=== PATIENT | male | born 1940 | race Caucasian/White ===

== ENCOUNTER → 2017-04-27 | Outpatient (CLI) | payer MEDICARE ==
[~2017-04-27] MED LIST: ASPI-999 PO; ATOR40TA70 PO; CARV12.53 PO; LISI-556 PO; METF500T4 PO; PANT40TA3 PO
== END ==
LOC: PREOP 13:04
PROVIDERS: ATTEND Internal Medicine
DX: Z01.818 Encounter for other preprocedural examination (principal); D64.9 Anemia, unspecified; K92.2 Gastrointestinal hemorrhage, unspecified

== ENCOUNTER → 2017-04-28 | Day surgery (SDC) | payer MEDICARE ==
--- NOTE | 2017-04-27 18:03 | HISTORY AND PHYSICAL ---
DATE OF SERVICE: HISTORY OF PRESENT ILLNESS: The patient is a 76-year-old white male who presented to my office on 04/26/2017. He was reporting that he was having fatigue at that time but voiced no specific complaints. He was not aware of any abdominal pain, indigestion and had noted no melena or bright red blood per rectum. He did look pallorous and sent off initial CBC that revealed that his hemoglobin was down 2 grams compared to three months ago at 11, MCV was slightly lower at 91 compared to 94.6, and the remainder of his chemistries were unremarkable save for mild blood sugar elevation at 146. This was a nonfasting sample. Further studies obtained were iron studies suggesting iron deficiency anemia with an iron saturation level low at 13.5, an iron level of 35 with a TIBC of 260, ferritin was lower into the normal range at 96 with a B12 level of 506. Absolute and corrected retic counts were in the normal range at 71.9 and 1.78 respectively. He called back this morning stating that he is having nausea and vomiting. It was bilious in color. He was not aware of any bright red blood or coffee ground emesis. He was taking a baby aspirin daily and denied nonsteroidal medication usage. PAST MEDICAL HISTORY: Hypertension, hyperlipidemia and coronary artery disease. MEDICATIONS ON ADMISSION: Include carvedilol 12.5 mg b.i.d., metformin 500 mg b.i.d. for type 2 diabetes mellitus, lisinopril 5 mg daily, atorvastatin 40 mg daily, with a baby aspirin daily. PHYSICAL EXAMINATION: Blood pressure was 120/58 with a heart rate of 80 and regular. GENERAL: Revealed a white male, slightly pallorous. CHEST: Clear. CARDIOVASCULAR: Regular rate and rhythm without murmur, S3 or S4. ABDOMEN: Soft, supple without mass, organomegaly or tenderness. ASSESSMENT: Nausea, vomiting, iron deficiency anemia. Workup will be initiated with an EGD evaluation. Aspirin will be held. He will continue his other medications. He was set up for an EGD the morning of the , and that is tomorrow. Job ID: [id number] DocumentID: [id number] Dictated Date: 04/27/2017 16:35:47 Medical Aide Date: 04/27/2017 18:02:55 Dictated By: DAVID RUIZ MD
[~2017-04-28] VITALS: Ht 170.2 cm; Wt 72.6 kg
[~2017-04-28] MED LIST changes: +D5 LR IV SOLUTION 1,000 ML IV ONE; +D5 LR IV SOLUTION 1,000 ML IV STA; +HURRICAINE EXT TUBE (BENZOCAINE) ONE; +HURRICAINE EXT TUBE (BENZOCAINE) XX PRN; +LIDOCAINE JELLY 2% (XYLOCAINE) 5 ML TUBE MM PRN; +LIDOCAINE JELLY 2% (XYLOCAINE) 5 ML TUBE ONE; +MIDAZOLAM 10 MG/2 ML (VERSED) VIAL IVP PRN; +MIDAZOLAM 2 MG/2 ML (VERSED) VIAL ONE; +NS IV 500 ML 500 ML ONE; +PANTOPRAZOLE 40 MG (PROTONIX) TAB PO SCH; +fentaNYL INJECTION 100 MCG/2 ML AMP ONE
--- OUTSIDE RECORDS SUMMARY | 2017-04-28 08:51 | XMS REPORT ---
Author Author MARYAM TAYLOR Organization [employer] Address Unknown Phone Unavailable Care Team Providers Care Customer Success Intern Name Role Phone MARYAM TAYLOR CP Unavailable Allergies, Adverse Reactions, Alerts Substance Reaction Event Type N.K.D.A. Info Not Available Non Drug Allergy Problems Problem Type Condition Code Onset Dates Condition Status Assessment Hip pain M25.559 Active Medications No Known Medications Procedures Procedure Coding System Code Date Office Visit, Est Pt., Level 2 CPT-4 43120 November 20, 2015 [facility] VISIT ESTABLISHED PATIENT CPT-4 G0467 November 20, 2015 Vital Signs Date/Time: November 20, 2015 Temperature 98 F Weight 162.4 lbs Height 68 in BMI 24.69 Index Blood Pressure Diastolic 66 mmHg Blood Pressure Systolic 112 mmHg Cardiac Monitoring Heart Rate 72 bpm Results No Known Results Summary Purpose [employer] Submission
--- OUTSIDE RECORDS SUMMARY | 2017-04-28 08:51 | XMS REPORT | Continuity of Care Document ---
Author Author [facility] Organization [facility] Address Unknown Phone Unavailable Allergies Medications Problems Procedures Results Encounters ACCT No. Visit Date/Time Discharge Status Pt. Type Provider Facility Loc./Unit Complaint [id number] 09/18/2013 09:13:00 2013 23:59:59 CLS Outpatient
[2017-04-28 09:00] VITALS: BP 124/60
[2017-04-28] MEDS: fentaNYL INJECTION 100 MCG/2 ML AMP IVP PRN ×2 (10:34→10:45)
[2017-04-28 11:15] VITALS: BP 101/52
[2017-04-28 12:00] VITALS: BP 110/60
[2017-04-28 15:36] VITALS: BP 110/60
--- NOTE | 2017-04-28 17:48 | OPERATIVE REPORT ---
DATE OF SERVICE: INDICATION FOR THE PROCEDURE: Nausea, vomiting, iron deficiency anemia. The patient was placed in left lateral decubitus position. The endoscope was inserted in the oral cavity and under direct visualization the esophagus was intubated. The endoscope was passed down the esophagus through the stomach into the second portion of the duodenum. Careful inspection was made as the endoscope was withdrawn. The patient tolerated the procedure well. FINDINGS: The mid and upper esophagus were unremarkable. There is a granular appearance to the distal 6 cm of esophagus without a distinct GE junction, suspicious for Rivera's, although non Rivera's related reflux changes are in the differential. Biopsies were obtained and submitted for histopathology. A moderate size hiatal hernia was present at the Z line, was proximally placed at 35 cm from the incisoral orifice. The cardia of the stomach was unremarkable. There was mild erythema and patchy areas involving the distal fundus and antrum. One very small antral erosion was present. No evidence for gastric ulceration was noted. Biopsy was obtained and submitted for Helicobacter. Present in the duodenal bulb along the posterior wall was a small 2 x 3 mm shallow benign appearing ulcer, no visible vessel formation or bleed or clot formation was noted. The second portion and third portion of the duodenum were unremarkable. ASSESSMENT: 1. One small duodenal ulcer was present without evidence of visable vessel formation and no evidence for bleeding. 2. Gastritis, predominantly antral, suspicious for aspirin or nonsteroidal related was present. Biopsies are pending for Helicobacter evaluation. 3. Moderate hiatal hernia with questionable Rivera's changes in the distal esophagus as noted above. Biopsies were obtained and submitted for histopathology. The patient was initiated on pantoprazole 40 mg daily and advised to abstain from aspirin and nonsteroidal medication. He will follow up with me in 2 weeks. Job ID: [id number] DocumentID: [id number] Dictated Date: 04/28/2017 13:08:44 Core Extruder Date: 04/28/2017 17:47:53 Dictated By: DAVID RUIZ MD [facility]
== END | disposition home or self-care (01) ==
LOC: ENDO 08:43
PROVIDERS: ATTEND Internal Medicine
DX: K22.70 Barrett's esophagus without dysplasia (principal); K26.9 Duodenal ulcer, unspecified as acute or chronic, without hemorrhage or perforation; K29.50 Unspecified chronic gastritis without bleeding; K44.9 Diaphragmatic hernia without obstruction or gangrene; D50.9 Iron deficiency anemia, unspecified; I10 Essential (primary) hypertension; E78.5 Hyperlipidemia, unspecified; I25.10 Atherosclerotic heart disease of native coronary artery without angina pectoris; E11.9 Type 2 diabetes mellitus without complications; Z79.84 Long term (current) use of oral hypoglycemic drugs; Z79.899 Other long term (current) drug therapy

== ENCOUNTER 2017-11-02 06:05 | Outpatient (CLI) | payer MEDICARE ==
[~2017-11-02] VITALS: Ht 170.2 cm; Wt 65.8 kg
[~2017-11-02 06:05] MED LIST changes: -D5 LR IV SOLUTION 1,000 ML IV ONE; -D5 LR IV SOLUTION 1,000 ML IV STA; -HURRICAINE EXT TUBE (BENZOCAINE) ONE; -HURRICAINE EXT TUBE (BENZOCAINE) XX PRN; -LIDOCAINE JELLY 2% (XYLOCAINE) 5 ML TUBE MM PRN; -LIDOCAINE JELLY 2% (XYLOCAINE) 5 ML TUBE ONE; -MIDAZOLAM 10 MG/2 ML (VERSED) VIAL IVP PRN; -MIDAZOLAM 2 MG/2 ML (VERSED) VIAL ONE; -NS IV 500 ML 500 ML ONE; -PANTOPRAZOLE 40 MG (PROTONIX) TAB PO SCH; -fentaNYL INJECTION 100 MCG/2 ML AMP ONE
== END 2017-11-02 16:24 ==
LOC: PREOP 06:05
PROVIDERS: ATTEND Surgery
DX: Z01.818 Encounter for other preprocedural examination (principal); K40.90 Unilateral inguinal hernia, without obstruction or gangrene, not specified as recurrent

== ENCOUNTER 2017-11-06 07:51 | Day surgery (SDC) | payer MEDICARE ==
[~2017-11-06] VITALS: Ht 170.2 cm; Wt 65.8 kg
--- OUTSIDE RECORDS SUMMARY | 2017-11-06 07:55 | XMS REPORT | Continuity of Care Document ---
Author Author [facility] Organization [facility] Address Unknown Phone Unavailable Allergies Active Description Code Type Severity Reaction Onset Reported/Identified Relationship to Patient Clinical Status Yes No Known Drug Allergies [id number] Drug Allergy Unknown N/A 02/14/2011 Medications There is no data. 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 05/02/2017 DAVID SALINAS MD Ot K26.9 DUODENAL ULCER, UNSP ACUTE OR CHRONIC 05/02/2017 DAVID SALINAS MD Ot K29.50 UNSPECIFIED CHRONIC GASTRITIS WITHOUT BL 05/02/2017 DAVID SALINAS MD Ot K44.9 DIAPHRAGMATIC HERNIA WITHOUT OBSTRUCTION 05/02/2017 DAVID SALINAS MD Ot Z79.84 BASIN OPERATOR (CURRENT) USE OF ORAL HYPOGLYC 05/02/2017 DAVID SALINAS MD Ot Z79.899 OTHER BASIN OPERATOR (CURRENT) DRUG THERAPY 05/04/2017 DAVID SALINAS MD, Ot D50.9 IRON DEFICIENCY ANEMIA, UNSPECIFIED 05/04/2017 DAVID SALINAS MD Ot E11.9 TYPE 2 DIABETES MELLITUS WITHOUT COMPLIC 05/04/2017 DAVID SALINAS MD Ot E78.5 HYPERLIPIDEMIA, UNSPECIFIED 05/04/2017 DAVID SALINAS MD Ot I10 ESSENTIAL (PRIMARY) HYPERTENSION 05/04/2017 DAVID SALINAS MD Ot I25.10 ATHSCL HEART DISEASE OF [place] CORONARY 05/04/2017 DAVID SALINAS MD Ot 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 05/04/2017 DAVID SALINAS MD Ot K26.9 DUODENAL ULCER, UNSP ACUTE OR CHRONIC 05/04/2017 DAVID SALINAS MD Ot K29.50 UNSPECIFIED CHRONIC GASTRITIS WITHOUT BL 05/04/2017 DAVID SALINAS MD Ot K44.9 DIAPHRAGMATIC HERNIA WITHOUT OBSTRUCTION 05/04/2017 DAVID SALINAS MD Ot Z79.84 BASIN OPERATOR (CURRENT) USE OF ORAL HYPOGLYC 05/04/2017 DAVID SALINAS MD Ot Z79.899 OTHER FPC (CURRENT) DRUG THERAPY 05/11/2017 DAVID SALINAS MD, Ot D50.9 IRON DEFICIENCY ANEMIA, UNSPECIFIED 05/11/2017 DAVID SALINAS MD Ot E11.9 TYPE 2 DIABETES MELLITUS WITHOUT COMPLIC 05/11/2017 DAVID SALINAS MD Ot E78.5 HYPERLIPIDEMIA, UNSPECIFIED 05/11/2017 DAVID SALINAS MD Ot I10 ESSENTIAL (PRIMARY) HYPERTENSION 05/11/2017 DAVID SALINAS MD Ot I25.10 ATHSCL HEART DISEASE OF [place] CORONARY 05/11/2017 DAVID SALINAS MD Ot 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 05/11/2017 DAVID SALINAS MD, Ot K26.9 DUODENAL ULCER, UNSP ACUTE OR CHRONIC 05/11/2017 DAVID SALINAS MD Ot K29.50 UNSPECIFIED CHRONIC GASTRITIS WITHOUT BL 05/11/2017 DAVID SALINAS MD, Ot K44.9 DIAPHRAGMATIC HERNIA WITHOUT OBSTRUCTION 05/11/2017 DAVID SALINAS MD Ot Z79.84 FPC (CURRENT) USE OF ORAL HYPOGLYC 05/11/2017 DAVID SALINAS MD Ot Z79.899 OTHER BASIN OPERATOR (CURRENT) DRUG THERAPY 06/02/2017 DAVID SALINAS MD Ot D50.9 IRON DEFICIENCY ANEMIA, UNSPECIFIED 06/02/2017 DAVID SALINAS MD Ot E11.9 TYPE 2 DIABETES MELLITUS WITHOUT COMPLIC 06/02/2017 DAVID SALINAS MD Ot E78.5 HYPERLIPIDEMIA, UNSPECIFIED 06/02/2017 DAVID SALINAS MD Ot I10 ESSENTIAL (PRIMARY) HYPERTENSION 06/02/2017 DAVID SALINAS MD Ot I25.10 ATHSCL HEART DISEASE OF [place] CORONARY 06/02/2017 SALINAS MD, DAVID D Ot 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 06/02/2017 DAVID SALINAS MD Ot K26.9 DUODENAL ULCER, UNSP ACUTE OR CHRONIC 06/02/2017 DAVID SALINAS MD Ot K29.50 UNSPECIFIED CHRONIC GASTRITIS WITHOUT BL 06/02/2017 DAVID SALINAS MD Ot K44.9 DIAPHRAGMATIC HERNIA WITHOUT OBSTRUCTION 06/02/2017 DAVID SALINAS MD Ot Z79.84 FPC (CURRENT) USE OF ORAL HYPOGLYC 06/02/2017 DAVID SALINAS MD Ot Z79.899 OTHER FPC (CURRENT) DRUG THERAPY 11/02/2017 DAVID SALINAS MD Ot 414.01 CORONARY ATHEROSCLEROSIS OF [place] CORON 11/02/2017 DAVID SALINAS MD Ot 786.50 CHEST PAIN NOS 11/02/2017 DAVID SALINAS MD Ot D50.9 IRON DEFICIENCY ANEMIA, UNSPECIFIED 11/02/2017 DAVID SALINAS MD Ot E11.9 TYPE 2 DIABETES MELLITUS WITHOUT COMPLIC 11/02/2017 DAVID SALINAS MD Ot E78.5 HYPERLIPIDEMIA, UNSPECIFIED 11/02/2017 DAVID SALINAS MD Ot I10 ESSENTIAL (PRIMARY) HYPERTENSION 11/02/2017 DAVID SALINAS MD Ot I25.10 ATHSCL HEART DISEASE OF [place] CORONARY 11/02/2017 DAVID SALINAS MD Ot 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 11/02/2017 DAVID SALINAS MD Ot K26.9 DUODENAL ULCER, UNSP ACUTE OR CHRONIC 11/02/2017 DAVID SALINAS MD Ot K29.50 UNSPECIFIED CHRONIC GASTRITIS WITHOUT BL 11/02/2017 DAVID SALINAS MD Ot K44.9 DIAPHRAGMATIC HERNIA WITHOUT OBSTRUCTION 11/02/2017 DAVID SALINAS MD Ot Z79.84 BASIN OPERATOR (CURRENT) USE OF ORAL HYPOGLYC 11/02/2017 DAVID SALINAS MD Ot Z79.899 OTHER FPC (CURRENT) DRUG THERAPY 11/02/2017 DAVID SALINAS MD Ot D64.9 ANEMIA, UNSPECIFIED 11/02/2017 DAVID SALINAS MD Ot K92.2 GASTROINTESTINAL HEMORRHAGE, UNSPECIFIED 11/02/2017 DAVID SALINAS MD Ot Z01.818 ENCOUNTER FOR OTHER PREPROCEDURAL EXAMIN Procedures There is no data. Results There is no data. Encounters ACCT No. Visit Date/Time Discharge Status Pt. Type Provider Facility Loc./Unit Complaint [id number] 11/02/2017 06:05:00 11/02/2017 16:24:00 DIS Outpatient SRAVAN BRAVO DO [facility] PREOP LEFT INGUINAL HERNIA [id number] 08/24/2017 10:14:00 08/24/2017 23:59:59 CLS Preadmit DAVID SALINAS MD [facility] RAD MEMORY LOSS,WEIGHT LOSS [id number] 04/28/2017 08:43:00 04/28/2017 23:59:59 CLS Outpatient DAVID SALINAS MD [facility] ENDO ANEMIA; POSSIBLE UPPER GI BLEED [id number] 04/27/2017 13:04:00 04/27/2017 23:59:59 CLS Outpatient DAVID SALINAS MD [facility] PREOP ANEMIA; POSSIBLE UPPER GI BLEED [id number] 09/18/2013 09:13:00 09/18/2013 23:59:59 CLS Outpatient DAVID SALINAS MD [facility] LAB ASCAD WITH CP [id number] 11/06/2017 10:00:00 PEN Preadmit SRAVAN BRAVO DO [facility] LEFT INGUINAL HERNIA [id number] 10/25/2017 08:00:00 10/25/2017 23:59:59 CLS Outpatient David Salinas [facility]
[2017-11-06 08:20] VITALS: BP 136/73
[2017-11-06] MEDS ORDERED: ceFAZolin 2 GM IV Premixed 50 ML IV ONE (08:45)
[2017-11-06] MEDS ORDERED: FAMOTIDINE 20MG/2ML IV (PEPCID) ONE (09:01)
[2017-11-06] MEDS ORDERED: FAMOTIDINE 20MG/2ML IV (PEPCID) IV ONE (09:15)
[2017-11-06] MEDS: LACTATED RINGERS 1,000 ML IV PRN ×2 (09:36→10:44)
[2017-11-06] MEDS ORDERED: ROCURONIUM 10 MG/ML 5 ML SYRINGE IV ONE (09:49)
[2017-11-06] MEDS ORDERED: proPOfol 200 MG/20 ML (DIPRIVAN) VIAL IV ONE (09:49)
[2017-11-06] MEDS ORDERED: SEVOFLURANE (ULTANE) 15 ML INHAL SOLN ONE ×5 (09:49→11:30)
[2017-11-06] MEDS ORDERED: DEXAMETHASONE 10 MG/ML (DECADRON) 1 ML VIAL ONE (09:49)
[2017-11-06] MEDS ORDERED: LIDOCAINE PF 2% 5 ML (XYLOCAINE) VIAL ONE (09:49)
[2017-11-06] MEDS ORDERED: ONDANSETRON 4 MG/2 ML (SDV) Z0FRAN ONE (09:49)
[2017-11-06] MEDS ORDERED: fentaNYL INJECTION 100 MCG/2 ML AMP ONE (09:50)
[2017-11-06] MEDS ORDERED: MIDAZOLAM 2 MG/2 ML (VERSED) VIAL ONE (09:50)
[2017-11-06] MEDS ORDERED: LIDOCAINE/EPI 1%-1:200,000 (XYLOCAINE) 10 ML VIAL ONE (10:12)
--- NOTE | 2017-11-06 10:32 | Progress Note-Pre Operative ---
Pre-Operative Progress Note H&P Reviewed The H&P was reviewed, patient examined and no changes noted. Time Seen by Provider: 10:28 Date H&P Reviewed: Nov 06, 2017 Time H&P Reviewed: 10:31 Pre-Operative Diagnosis: Left inguinal hernia SRAVAN RBAVO DO Nov 06, 2017 10:32
--- NOTE | 2017-11-06 11:12 | Progress Note-Post Operative ---
Post-Operative Progess Note Surgeon (s)/Digital Technician (s) Surgeon SRAVAN BRAVO DO Digital Technician: osvaldo Pre-Operative Diagnosis Left inguinal hernia Post-Operative Diagnosis Direct and Indirect LIH Procedure & Operative Findings Date of Procedure 11/06/17 Procedure Performed/Findings LIH with mesh Anesthesia Type GET Estimated Blood Loss Estimated blood loss (mL): scant Specimens/Packing Specimens Removed hernia sac SRAVAN BRAVO DO Nov 06, 2017 11:12
[2017-11-06] MEDS ORDERED: NEOSTIGMINE 1 MG/ML 5 ML SYRINGE ONE (11:13)
[2017-11-06] MEDS ORDERED: GLYCOPYRROLATE 0.2 MG/ML (ROBINUL) 2 ML VIAL ONE (11:13)
[2017-11-06] MEDS ORDERED: ACHD5005 PO (11:13)
--- NOTE | 2017-11-06 11:16 | Discharge Inst-Surgical ---
Discharge Inst-Surgical Depart Medication/Instructions New, Converted or Re-Newed RX: RX Given to Pt/Family Patient Instructions Follow up Appt: Make appointment for 1 week. Instructions: No lifting greater than 20 pounds. No strenuous activity. May shower in 24 hours, no tub bath or soaking. Use incentive spirometer at home as directed. No Smoking Skin/Wound Care: May remove bandages. You need to leave the Dermabond on over incision it will fall off on its own. Symptoms to Report: Appetite Changes, Extremity Discoloration, Numbness/Tingling, Swelling Increased , Bleeding Excessive, Eyesight Changes, Pain Increased, Urine Color Change, Constipation(Persistent), Fever over 101 degree F, Pain/Pressure in chest, Urinating Difficulty, Cough Up/Vomit Blood, Heart Beat Irreg/Pounding, Pain/ Pressure in jaw, Cramps in feet or legs, Lightheadedness, Pain/Pressure in shoulder, Diarrhea(Persistent), Memory Changes Suddenly, Questions/Concerns, Weight gain consecutive days, Dizziness/Fainting, Nausea/Vomiting, Shortness of Breath, Weight gain over 2 pounds If questions or concerns contact your physician Or seek help at emergency department. Activity Activity as Tolerated: Yes Activity Instructions: Avoid Stress to Incision Driving Instructions: No Driving/Refer to Diet Discharge Diet: No Restrictions Diet After 24 Hours: Clear Liquid if Nauseous If Any Problems/Questions/Issu: Contact Your Physician, Go to Emergency Room Skin/Wound Care Infection Signs and Symptoms: Increased Redness, Foul Odor of Wound, Increased Drainage, Skin Itchy or Has a Rash, Increased Swelling, Temperature Above 101 F Bathing Instructions: Shower Stitches/Leeroy/Dermabond Dis: Dermabond Ice Pack: Ice On and Off Site SRAVAN BRAVO DO Nov 06, 2017 11:16
[2017-11-06] MEDS ORDERED: morphine INJ 10 MG/ML 1ML (SYR OR VIAL) IVP PRN (11:45)
[2017-11-06] MEDS ORDERED: ONDANSETRON 4 MG/2 ML (SDV) Z0FRAN IVP PRN (11:45)
[2017-11-06 12:35] VITALS: BP 118/62
[2017-11-06 13:05] VITALS: BP 113/61
--- NOTE | 2017-11-06 13:26 | Anesthesia-General Post-Op ---
General Patient Condition Mental Status/LOC: Same as Preop Cardiovascular: Satisfactory Nausea/Vomiting: Absent Respiratory: Satisfactory Pain: Controlled Complications: Absent Post Op Complications Complications None Follow Up Care/Instructions Patient Instructions None needed. Anesthesia/Patient Condition Patient Condition Patient is doing well, resting comfortably in SDC, no complaints, stable vital signs, no apparent adverse anesthesia problems. DIANE GALO DO Nov 06, 2017 13:26
[2017-11-06 13:35] VITALS: BP 112/57
[2017-11-06 13:45] VITALS: BP 112/57
--- NOTE | 2017-11-07 01:05 | OPERATIVE REPORT ---
DATE OF SERVICE: 11/06/2017 PREOPERATIVE DIAGNOSIS: Incarcerated left inguinal hernia. POSTOPERATIVE DIAGNOSIS: Left inguinal hernia, reducible. PROCEDURE: Left inguinal hernia, direct and indirect component reducible. PROCEDURE: Left inguinal herniorrhaphy with mesh placement. SURGEON: Dio Patel DO ACOUSTICAL INSTALLER: Med Alexander DO ANESTHESIA: General endotracheal tube. SPECIMEN: Hernia sac. BLOOD LOSS: Scant. FLUIDS: Per anesthesia. POSTOPERATIVE CONDITION: Stable. INDICATION FOR PROCEDURE: The patient is a 77-year-old male who has pain and bulge in left inguinal region. He was diagnosed with incarcerated left inguinal hernia. FINDINGS: The patient had an indirect inguinal hernia, but there was no bowel or omentum stuck in there. He also had a very large direct floor component. PROCEDURE NOTE: After informed consent was obtained, the patient was brought to the operating room, placed on the table in supine position. He was sterilely prepped and draped in normal fashion. Local lidocaine was used to perform an ilioinguinal nerve block as well as pubic tubercle block then infiltrated left inguinal region with local, made incision #15 blade, carried down to skin into the subcutaneous tissue, then deepened down subcutaneous tissue by electrocautery down to the external oblique fascia, then infiltrated external oblique fascia with local, then incised external oblique fascia through the external inguinal ring with a Bovie electrocautery, grasped the 2 sides with hemostats and dissected under it bluntly to create a pocket. I was then able to grasp the cord and cord structures and get under them at the pubic tubercle, placed a [place] drain put in inferolateral direction. Noted a pretty large direct component of floor weakness and then looking superiorly, medially on the cord and cord structures found a hernia sac, carefully able to free this off the cord and cord structures, opened this up. There are no contents in the hernia sac, carefully twisted this down and suture ligated with a 2-0 Vicryl and then ligated with 2-0 Vicryl suture. Cut off the hernia sac and watched the stump retracting the abdomen, then path sac off the table. I then elected to close the direct component using 2-0 Vicryl, two [id number] sutures were used to close this. It closed nicely. I then elected to place a left-sided Parietex mesh, sutured to the pubic tubercle and then encircled the cord with a precut hole and then placed rest of it up under the external oblique fascia, laid in nicely, copiously irrigated with normal saline, suctioned this out and then closed the external oblique fascia with a 3-0 Vicryl running suture, thereby recreating the external inguinal ring. I then closed Francisco's fascia with 3-0 Vicryl interrupted sutures and closed the skin with a 4-0 undyed Monocryl in subcuticular fashion. Area was cleaned and dried. Dermabond placed as well as dressing. The patient then transferred to recovery room in stable condition. Sponge and needle count correct at the end of the case. Job ID: [id number] DocumentID: [id number] Dictated Date: 11/06/2017 15:34:37 Learning And Development Administrator Date: 11/06/2017 22:31:23 Dictated By: DIO PATEL DO
== END 2017-11-06 14:10 | disposition home or self-care (01) ==
LOC: SDC 07:51
PROVIDERS: ATTEND Surgery
DX: K40.30 Unilateral inguinal hernia, with obstruction, without gangrene, not specified as recurrent (principal); I10 Essential (primary) hypertension; I25.10 Atherosclerotic heart disease of native coronary artery without angina pectoris; E78.5 Hyperlipidemia, unspecified; Z95.1 Presence of aortocoronary bypass graft; K21.9 Gastro-esophageal reflux disease without esophagitis; E11.9 Type 2 diabetes mellitus without complications; Z79.84 Long term (current) use of oral hypoglycemic drugs; Z79.899 Other long term (current) drug therapy; Z11.2 Encounter for screening for other bacterial diseases
CPT/HCPCS: 82962; 87081

== ENCOUNTER 2017-11-08 10:40 | Emergency (ER) | payer MEDICARE ==
[~2017-11-08] VITALS: Ht 162.6 cm; Wt 61.2 kg
[~2017-11-08 10:40] MED LIST changes: +ACHD5005 PO
--- NOTE | 2017-11-08 11:05 | ED Neurological Problem ---
General Chief Complaint: Altered Mental Status Stated Complaint: AMS Source: patient Exam Limitations: no limitations History of Present Illness Date Seen by Provider: Nov 08, 2017 Time Seen by Provider: 11:01 Initial Comments To ER with c/o altered mental status. Pt was here today to follow up with Dr Bravo from left inguinal hernia repair done 2 days ago. His appointment is on and he believed that was today, noted to seem confused, referred to ER. Lives at home alone he states. Severity: moderate Allergies and Home Medications Allergies Coded Allergies: No Known Drug Allergies (Unverified , 02/14/11) Home Medications Atorvastatin Calcium 40 Mg Tablet, 40 MG PO HS, (Reported) Carvedilol 12.5 Mg Tablet, 12.5 MG PO BID, (Reported) Hydrocodone Bit/Acetaminophen 1 Tab Tab, 1 TAB PO Q6H PRN Prescribed by: SRAVAN BRAVO on 11/06/17 1113 Levofloxacin 250 Mg Tablet, 250 MG PO DAILY Prescribed by: AMRIT SHARP on 11/08/17 1300 Lisinopril 5 Mg Tablet, 5 MG PO DAILY, (Reported) Metformin HCl 500 Mg Tablet, 500 MG PO BID, (Reported) Patient Home Medication List Home Medication List Reviewed: Yes Review of Systems Constitutional: see HPI, other (unable to obtain accurately due to confusion) Past Jhsmgzr-Srdwnw-Ofxxcz Hx Patient Social History Recent Foreign Travel: No Contact w/Someone Who Travel: No Recent Hopitalizations: No Immunizations Up To Date Date of Influenza Vaccine: Apr 20, 2017 Seasonal Allergies Seasonal Allergies: No Past Medical History Coronary Stent Hypertension Reproductive Disorders: No Physical Exam Vital Signs Vital Signs - First Documented 11/08/17 11:39 Temp 97.3 Pulse 67 Resp 18 B/P (MAP) 165/85 (111) Pulse Ox 95 Capillary Refill : General Appearance: WD/WN, no apparent distress, other (alert, ambulatory on his own without assistive device. Rambling conversation. Does not know the year. Asked what day of the month it is and he states "monday". He does know the month is october. ) HEENT: PERRL/EOMI, normal ENT inspection Neck: non-tender, full range of motion Respiratory: normal breath sounds, no respiratory distress, no accessory muscle use Cardiovascular: regular rate, rhythm, no murmur Gastrointestinal: normal bowel sounds, non tender, soft, other ((our) Extremities: normal range of motion, non-tender Neurologic/Psychiatric: alert, normal mood/affect, oriented x 3 Crainal Nerves: normal hearing, normal speech, PERRL Skin: normal color, warm/dry Progress/Results/Core Measures Lab Results Laboratory Tests Test 11/08/17 11:04 11/08/17 11:20 Range/Units White Blood Count 11.9 H 4.3-11.0 10^3/uL Red Blood Count 4.68 4.35-5.85 10^6/uL Hemoglobin 14.1 13.3-17.7 G/DL Hematocrit 43 40-54 % Mean Corpuscular Volume 92 80-99 FL Mean Corpuscular Hemoglobin 30 25-34 PG Mean Corpuscular Hemoglobin Concent 33 32-36 G/DL Red Cell Distribution Width 13.9 10.0-14.5 % Platelet Count 270 130-400 10^3/uL Mean Platelet Volume 9.5 7.4-10.4 FL Neutrophils (%) (Auto) 83 H 42-75 % Lymphocytes (%) (Auto) 10 L 12-44 % Monocytes (%) (Auto) 7 0-12 % Eosinophils (%) (Auto) 0 0-10 % Basophils (%) (Auto) 0 0-10 % Neutrophils # (Auto) 9.9 H 1.8-7.8 X 10^3 Lymphocytes # (Auto) 1.2 1.0-4.0 X 10^3 Monocytes # (Auto) 0.8 0.0-1.0 X 10^3 Eosinophils # (Auto) 0.0 0.0-0.3 10^3/uL Basophils # (Auto) 0.0 0.0-0.1 10^3/uL Sodium Level 140 135-145 MMOL/L Potassium Level 4.1 3.6-5.0 MMOL/L Chloride Level 103 98-107 MMOL/L Carbon Dioxide Level 24 21-32 MMOL/L Anion Gap 13 5-14 MMOL/L Blood Urea Nitrogen 32 H 7-18 MG/DL Creatinine 1.15 0.60-1.30 MG/DL Estimat Glomerular Filtration Rate > 60 BUN/Creatinine Ratio 28 Glucose Level 118 H 70-105 MG/DL Calcium Level 10.4 H 8.5-10.1 MG/DL Total Bilirubin 0.9 0.1-1.0 MG/DL Aspartate Amino Transf (AST/SGOT) 43 H 5-34 U/L Alanine Aminotransferase (ALT/SGPT) 17 0-55 U/L Alkaline Phosphatase 32 L 40-136 U/L Total Protein 7.9 6.4-8.2 GM/DL Albumin 4.4 3.2-4.5 GM/DL Urine Color YELLOW Urine Clarity VERY CLOUDY H Urine pH 6 5-9 Urine Specific Tamiment 1.015 L 1.016-1.022 Urine Protein 3+ H NEGATIVE Urine Glucose (UA) NEGATIVE NEGATIVE Urine Ketones 2+ H NEGATIVE Urine Nitrite NEGATIVE NEGATIVE Urine Bilirubin NEGATIVE NEGATIVE Urine Urobilinogen NORMAL NORMAL MG/DL Urine Leukocyte Esterase 3+ H NEGATIVE Urine RBC (Auto) 5+ H NEGATIVE Urine RBC >100 H /HPF Urine WBC 50-100 H /HPF Urine Squamous Epithelial Cells 0-2 /HPF Urine Crystals NONE /LPF Urine Bacteria TRACE /HPF Urine Casts NONE /LPF Urine Mucus NEGATIVE /LPF Urine Culture Indicated YES My Orders Orders - AMRIT SHARP APRN Cbc With Automated Diff (11/08/17 10:56) Comprehensive Metabolic Panel (11/08/17 10:56) Ua Culture If Indicated (11/08/17 10:56) Chest Pa/Lat (2 View) (11/08/17 10:56) Saline Lock/Iv-Start (11/08/17 10:56) Ekg Tracing (11/08/17 10:56) Ct Head Wo (11/08/17 11:05) Urine Culture (11/08/17 11:20) Ceftriaxone Injection (Rocephin Injectio (11/08/17 11:45) Medications Given in ED Current Medications Medications Dose Ordered Sig/Doreen Route Start Time Stop Time Status Last Admin Dose Admin Ceftriaxone Sodium 1000 mg/ Sodium Chloride 100 ml @ 200 mls/hr ONCE ONCE IV 11/08/17 11:45 11/08/17 12:14 DC 11/08/17 12:44 200 MLS/HR Vital Signs/I&O 11/08/17 11:39 Temp 97.3 Pulse 67 Resp 18 B/P (MAP) 165/85 (111) Pulse Ox 95 Departure Communication (Admissions) 1117-Daughter is present and states pt seems a bit more confused than normal, however, there have been concerns about some baseline dementia. She confirms that he does live alone but her brother, the patients son, lives close by and check on him daily. She states that he likes to drive around and she doesnt feel that is safe for him anymore. Her brother talked to her yesterday and states that yesterday Felix had "a really good day". The confusion has been coupled with bouts of crying and apparent depression after pts and was noticed by family at that time. 1258-Discussed with Dr Salinas, would like pt discharged on levaquin 250mg dialy x3 days, will call patient with appointment time in the office tomorrow for follow up. 1317-I did discuss with patient at request of his son and daughter that he should not be driving on account of his dementia, a reasonable suggestion. Pt does admit "sometimes I dont remember thigs real well" . However, the recommendation that he no longer drive was not well received by him. He will follow up with Dr Salinas tomorrow for further recommendations and his son will accompany him to this visit. Impression Primary Impression: Urinary tract infection Additional Impression: Dementia Disposition: 01 HOME, SELF-CARE Condition: Stable Departure-Patient Inst. Decision time for Depature: 11:44 Referrals: JANELL BUENO DO (PCP) Primary Care Physician DAVID SALINAS MD Patient Instructions: Urinary Tract Infection, Adult (DC) Add. Discharge Instructions: 1. Antibiotics as directed 2. Dr Salinas will call you for an appointment time in the office tomorrow. IF possible, family should accompany you to this visit. All discharge instructions reviewed with patient and/or family. Voiced understanding. Scripts Levofloxacin (Levaquin) 250 Mg Tablet 250 MG PO DAILY, #3 TAB Prov: AMRIT SHARP APRN 11/08/17 Copy Copies To 1: DAVID SALINAS MD, PETER J APRN Nov 08, 2017 11:04
[2017-11-08 11:21] LABS: BASOPHILS % (AUTO) 0 % (0-10); EOSINOPHILS % (AUTO) 0 % (0-10); HEMATOCRIT 43 % (40-54); HEMOGLOBIN 14.1 G/DL (13.3-17.7); LYMPHOCYTES # (AUTO) 1.2 X 10^3 (1.0-4.0); LYMPHOCYTES % (AUTO) 10 % (12-44); MEAN CORPUSCULAR HEMOGLOBIN 30 PG (25-34); MEAN CORPUSCULAR HGB CONC 33 G/DL (32-36); MEAN CORPUSCULAR VOLUME 92 FL (80-99); MEAN PLATELET VOLUME 9.5 FL (7.4-10.4); MONOCYTES # (AUTO) 0.8 X 10^3 (0.0-1.0); MONOCYTES % (AUTO) 7 % (0-12); NEUTROPHILS # (AUTO) 9.9 X 10^3 (1.8-7.8); NEUTROPHILS % (AUTO) 83 % (42-75); PLATELET COUNT 270 10^3/uL (130-400); RED BLOOD COUNT 4.68 10^6/uL (4.35-5.85); RED CELL DISTRIBUTION WIDTH 13.9 % (10.0-14.5); WHITE BLOOD COUNT 11.9 10^3/uL (4.3-11.0)
[2017-11-08 11:28] LABS: BILIRUBIN,URINE NEGATIVE (NEGATIVE); CLARITY,URINE VERY CLOUDY; COLOR,URINE YELLOW; GLUCOSE, URINE (UA) NEGATIVE (NEGATIVE); KETONES,URINE 2+ (NEGATIVE); LEUKOCYTE ESTERASE ,URINE 3+ (NEGATIVE); NITRITE,URINE NEGATIVE (NEGATIVE); PH,URINE 6 (5-9); PROTEIN,URINE 3+ (NEGATIVE); UROBILINOGEN,URINE NORMAL (NORMAL)
[2017-11-08 11:36] LABS: ALANINE AMINOTRANSFERASE 17 U/L (0-55); ALBUMIN 4.4 GM/DL (3.2-4.5); ALKALINE PHOSPHATASE 32 U/L (40-136); BILIRUBIN,TOTAL 0.9 MG/DL (0.1-1.0); BUN/CREATININE RATIO 28; CALCIUM 10.4 MG/DL (8.5-10.1); CARBON DIOXIDE 24 MMOL/L (21-32); CHLORIDE 103 MMOL/L (98-107); CREATININE SERUM 1.15 MG/DL (0.60-1.30); GFR ESTIMATED > 60; GLUCOSE 118 MG/DL (70-105); POTASSIUM 4.1 MMOL/L (3.6-5.0); SODIUM 140 MMOL/L (135-145); TOTAL PROTEIN 7.9 GM/DL (6.4-8.2)
[2017-11-08 11:38] LABS: RBC,URINE >100 /HPF; WBC,URINE 50-100 /HPF
[2017-11-08 11:39] LABS: BACTERIA,URINE TRACE /HPF; SQUAMOUS EPITHELIAL CELL,UR 0-2 /HPF
[2017-11-08] MEDS ORDERED: cefTRIAXone INJECTION 1,000 MG in NS (IVPB) 100 ML IV ONE (11:45)
--- NOTE | 2017-11-08 12:08 | Diagnostic Imaging Report ---
PROCEDURE: CT head without contrast. TECHNIQUE: Multiple contiguous axial images were obtained through the brain without the use of intravenous contrast. INDICATION: Altered mental status. No prior studies are available for comparison. FINDINGS: Ventricles and sulci are consistent with the patient's age. Moderate periventricular hypodensity is noted consistent with senescent change. Benign calcification left occipital lobe is identified. No sulcal effacement, midline shift or hemorrhage is detected. Cisterns are patent. Visualized paranasal sinuses are clear. IMPRESSION: No acute intracranial process is detected. Dictated by: Dictated on workstation # [id number]
--- NOTE | 2017-11-08 12:19 | Diagnostic Imaging Report ---
INDICATION: Altered mental status. Time of exam 12:27 PM No prior chest radiographs are available for comparison. Changes of median sternotomy and CABG are noted. Lungs are clear. The pulmonary vascularity is normal. No infiltrate, effusion or pneumothorax is identified. IMPRESSION: No acute cardiopulmonary process is identified. Dictated by: Dictated on workstation # [id number]
[2017-11-08] MEDS ORDERED: LEVO250T11 PO (13:00)
[2017-11-08] MEDS ORDERED: PHENAZOPYRIDINE 100 MG (PYRIDIUM) TABLET ONE (13:19)
[2017-11-08 13:20] VITALS: BP 145/68
--- OUTSIDE RECORDS SUMMARY | 2017-11-09 10:29 | XMS REPORT | Continuity of Care Document ---
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 05/02/2017 DAVID SALINAS MD Ot K26.9 DUODENAL ULCER, UNSP ACUTE OR CHRONIC 05/02/2017 DAVID SALINAS MD Ot K29.50 UNSPECIFIED CHRONIC GASTRITIS WITHOUT BL 05/02/2017 DAVID SALINAS MD Ot K44.9 DIAPHRAGMATIC HERNIA WITHOUT OBSTRUCTION 05/02/2017 DAVID SALINAS MD Ot Z79.84 APPOINTMENT CLERK (CURRENT) USE OF ORAL HYPOGLYC 05/02/2017 DAVID SALINAS MD Ot Z79.899 OTHER APPOINTMENT CLERK (CURRENT) DRUG THERAPY 05/04/2017 DAVID SALINAS MD, Ot D50.9 IRON DEFICIENCY ANEMIA, UNSPECIFIED 05/04/2017 DAVID SALINAS MD Ot E11.9 TYPE 2 DIABETES MELLITUS WITHOUT COMPLIC 05/04/2017 DAVID SALINAS MD Ot E78.5 HYPERLIPIDEMIA, UNSPECIFIED 05/04/2017 DAVID SALINAS MD Ot I10 ESSENTIAL (PRIMARY) HYPERTENSION 05/04/2017 DAVID SALINAS MD Ot I25.10 ATHSCL HEART DISEASE OF [place] CORONARY 05/04/2017 DAVID SALINAS MD Ot 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 05/04/2017 DAVID SALINAS MD Ot K26.9 DUODENAL ULCER, UNSP ACUTE OR CHRONIC 05/04/2017 DAVID SALINAS MD Ot K29.50 UNSPECIFIED CHRONIC GASTRITIS WITHOUT BL 05/04/2017 DAVID SALINAS MD Ot K44.9 DIAPHRAGMATIC HERNIA WITHOUT OBSTRUCTION 05/04/2017 DAVID SALINAS MD Ot Z79.84 APPOINTMENT CLERK (CURRENT) USE OF ORAL HYPOGLYC 05/04/2017 DAVID SALINAS MD Ot Z79.899 OTHER MCC (CURRENT) DRUG THERAPY 05/11/2017 DAVID SALINAS MD, Ot D50.9 IRON DEFICIENCY ANEMIA, UNSPECIFIED 05/11/2017 DAVID SALINAS MD Ot E11.9 TYPE 2 DIABETES MELLITUS WITHOUT COMPLIC 05/11/2017 DAVID SALINAS MD Ot E78.5 HYPERLIPIDEMIA, UNSPECIFIED 05/11/2017 DAVID SALINAS MD Ot I10 ESSENTIAL (PRIMARY) HYPERTENSION 05/11/2017 DAVID SALINAS MD Ot I25.10 ATHSCL HEART DISEASE OF [place] CORONARY 05/11/2017 DAVID SALINAS MD Ot 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 05/11/2017 DAVID SALINAS MD, Ot K26.9 DUODENAL ULCER, UNSP ACUTE OR CHRONIC 05/11/2017 DAVID SALINAS MD Ot K29.50 UNSPECIFIED CHRONIC GASTRITIS WITHOUT BL 05/11/2017 DAVID SALINAS MD, Ot K44.9 DIAPHRAGMATIC HERNIA WITHOUT OBSTRUCTION 05/11/2017 DAVID SALINAS MD Ot Z79.84 MCC (CURRENT) USE OF ORAL HYPOGLYC 05/11/2017 DAVID SALINAS MD Ot Z79.899 OTHER APPOINTMENT CLERK (CURRENT) DRUG THERAPY 06/02/2017 DAVID SALINAS MD Ot D50.9 IRON DEFICIENCY ANEMIA, UNSPECIFIED 06/02/2017 DAVID SALINAS MD Ot E11.9 TYPE 2 DIABETES MELLITUS WITHOUT COMPLIC 06/02/2017 DAVID SALINAS MD Ot E78.5 HYPERLIPIDEMIA, UNSPECIFIED 06/02/2017 DAVID SALINAS MD Ot I10 ESSENTIAL (PRIMARY) HYPERTENSION 06/02/2017 DAVID SALINAS MD Ot I25.10 ATHSCL HEART DISEASE OF [place] CORONARY 06/02/2017 SALINAS MD, DAVID D Ot 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 06/02/2017 DAVID SALINAS MD Ot K26.9 DUODENAL ULCER, UNSP ACUTE OR CHRONIC 06/02/2017 DAVID SALINAS MD Ot K29.50 UNSPECIFIED CHRONIC GASTRITIS WITHOUT BL 06/02/2017 DAVID SALINAS MD Ot K44.9 DIAPHRAGMATIC HERNIA WITHOUT OBSTRUCTION 06/02/2017 DAVID SALINAS MD Ot Z79.84 MCC (CURRENT) USE OF ORAL HYPOGLYC 06/02/2017 DAVID SALINAS MD Ot Z79.899 OTHER MCC (CURRENT) DRUG THERAPY 11/02/2017 DAVID SALINAS MD Ot 414.01 CORONARY ATHEROSCLEROSIS OF [place] CORON 11/02/2017 DAVID SALINAS MD Ot 786.50 CHEST PAIN NOS 11/02/2017 DAVID SALINAS MD Ot D50.9 IRON DEFICIENCY ANEMIA, UNSPECIFIED 11/02/2017 DAVID SALINAS MD Ot E11.9 TYPE 2 DIABETES MELLITUS WITHOUT COMPLIC 11/02/2017 DAVID SALINAS MD Ot E78.5 HYPERLIPIDEMIA, UNSPECIFIED 11/02/2017 DAVID SALINAS MD Ot I10 ESSENTIAL (PRIMARY) HYPERTENSION 11/02/2017 DAVID SALINAS MD Ot I25.10 ATHSCL HEART DISEASE OF [place] CORONARY 11/02/2017 DAVID SALINAS MD Ot 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 11/02/2017 DAVID SALINAS MD Ot K26.9 DUODENAL ULCER, UNSP ACUTE OR CHRONIC 11/02/2017 DAVID SALINAS MD Ot K29.50 UNSPECIFIED CHRONIC GASTRITIS WITHOUT BL 11/02/2017 DAVID SALINAS MD Ot K44.9 DIAPHRAGMATIC HERNIA WITHOUT OBSTRUCTION 11/02/2017 DAVID SALINAS MD Ot Z79.84 APPOINTMENT CLERK (CURRENT) USE OF ORAL HYPOGLYC 11/02/2017 DAVID SALINAS MD Ot Z79.899 OTHER MCC (CURRENT) DRUG THERAPY 11/02/2017 DAVID SALINAS MD Ot D64.9 ANEMIA, UNSPECIFIED 11/02/2017 DAVID SALINAS MD Ot K92.2 GASTROINTESTINAL HEMORRHAGE, UNSPECIFIED 11/02/2017 DAVID SALINAS MD Ot Z01.818 ENCOUNTER FOR OTHER PREPROCEDURAL EXAMIN 11/02/2017 SRAVAN BRAVO DO Ot K40.90 UNIL INGUINAL HERNIA, W/O OBST OR GANGR, 11/02/2017 JOEL BRAVO DOIC B Ot Z01.818 ENCOUNTER FOR OTHER PREPROCEDURAL EXAMIN 11/06/2017 SRAVAN BRAVO DO Ot E11.9 TYPE 2 DIABETES MELLITUS WITHOUT COMPLIC 11/06/2017 SRAVAN BRAVO DO B Ot E78.5 HYPERLIPIDEMIA, UNSPECIFIED 11/06/2017 SRAVAN BRAVO DO B Ot I10 ESSENTIAL (PRIMARY) HYPERTENSION 11/06/2017 SRAVAN BRAVO DO Ot I25.10 ATHSCL HEART DISEASE OF [place] CORONARY 11/06/2017 JOEL BRAVO DOIC B Ot K21.9 GASTRO-ESOPHAGEAL REFLUX DISEASE WITHOUT 11/06/2017 JOEL BRAVO DOIC B Ot 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, W OBST, W/O GANGR, 11/06/2017 SRAVAN BRAVO DO B Ot Z11.2 ENCOUNTER FOR SCREENING FOR OTHER BACTER 11/06/2017 SRAVAN BRAVO DO Ot Z79.84 MCC (CURRENT) USE OF ORAL HYPOGLYC 11/06/2017 SRAVAN BRAVO DO Ot Z79.899 OTHER MCC (CURRENT) DRUG THERAPY 11/06/2017 SRAVAN BRAVO DO B Ot Z95.1 PRESENCE OF AORTOCORONARY BYPASS GRAFT 11/06/2017 SRAVAN BRAVO DO Ot K40.90 UNIL INGUINAL HERNIA, W/O OBST OR GANGR, 11/06/2017 SRAVAN BRAVO DO B Ot Z01.818 ENCOUNTER FOR OTHER PREPROCEDURAL EXAMIN 11/07/2017 SRAVAN BRAVO DO Ot E11.9 TYPE 2 DIABETES MELLITUS WITHOUT COMPLIC 11/07/2017 SRAVAN BRAVO DO B Ot E78.5 HYPERLIPIDEMIA, UNSPECIFIED 11/07/2017 JOEL BRAVO DOIC B Ot I10 ESSENTIAL (PRIMARY) HYPERTENSION 11/07/2017 JOEL BRAVO DOIC B Ot I25.10 ATHSCL HEART DISEASE OF [place] CORONARY 11/07/2017 JOEL BRAVO DOIC B Ot K21.9 GASTRO-ESOPHAGEAL REFLUX DISEASE WITHOUT 11/07/2017 JOEL BRAVO DOIC B Ot 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, W OBST, W/O GANGR, 11/07/2017 SRAVAN BRAVO DO B Ot Z11.2 ENCOUNTER FOR SCREENING FOR OTHER BACTER 11/07/2017 DELMAN DO, SRAVAN B Ot Z79.84 MCC (CURRENT) USE OF ORAL HYPOGLYC 11/07/2017 DELWARNER DO, SRAVAN B Ot Z79.899 OTHER MCC (CURRENT) DRUG THERAPY 11/07/2017 ALIDAMAN DO, SRAVNA B Ot Z95.1 PRESENCE OF AORTOCORONARY BYPASS GRAFT 11/08/2017 DAVID SALINAS MD Ot 414.01 CORONARY ATHEROSCLEROSIS OF [place] CORON 11/08/2017 DAVID SALINAS MD Ot 786.50 CHEST PAIN NOS 11/08/2017 DAVID SALINAS MD Ot D50.9 IRON DEFICIENCY ANEMIA, UNSPECIFIED 11/08/2017 DAVID SALINAS MD Ot E11.9 TYPE 2 DIABETES MELLITUS WITHOUT COMPLIC 11/08/2017 DAVID SALINAS MD Ot E78.5 HYPERLIPIDEMIA, UNSPECIFIED 11/08/2017 DAVID SALINAS MD Ot I10 ESSENTIAL (PRIMARY) HYPERTENSION 11/08/2017 DAVID SALINAS MD Ot I25.10 ATHSCL HEART DISEASE OF [place] CORONARY 11/08/2017 DAVID SALINAS MD Ot 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 11/08/2017 DAVID SALINAS MD Ot K26.9 DUODENAL ULCER, UNSP ACUTE OR CHRONIC 11/08/2017 DAVID SALINAS MD Ot K29.50 UNSPECIFIED CHRONIC GASTRITIS WITHOUT BL 11/08/2017 DAVID SALINAS MD Ot K44.9 DIAPHRAGMATIC HERNIA WITHOUT OBSTRUCTION 11/08/2017 DAVID SALINAS MD Ot Z79.84 APPOINTMENT CLERK (CURRENT) USE OF ORAL HYPOGLYC 11/08/2017 DAVID SALINAS MD Ot Z79.899 OTHER MCC (CURRENT) DRUG THERAPY 11/08/2017 DAVID SALINAS MD Ot D64.9 ANEMIA, UNSPECIFIED 11/08/2017 DAVID SALINAS MD Ot K92.2 GASTROINTESTINAL HEMORRHAGE, UNSPECIFIED 11/08/2017 DAVID SALINAS MD Ot Z01.818 ENCOUNTER FOR OTHER PREPROCEDURAL EXAMIN 11/08/2017 DAVID SALINAS MD Ot 414.01 CORONARY ATHEROSCLEROSIS OF [place] CORON 11/08/2017 DAVID SALINAS MD Ot 786.50 CHEST PAIN NOS 11/08/2017 DAVID SALINAS MD Ot D50.9 IRON DEFICIENCY ANEMIA, UNSPECIFIED 11/08/2017 DAVID SALINAS MD Ot E11.9 TYPE 2 DIABETES MELLITUS WITHOUT COMPLIC 11/08/2017 DAVID SALINAS MD Ot E78.5 HYPERLIPIDEMIA, UNSPECIFIED 11/08/2017 DAVID SALINAS MD Ot I10 ESSENTIAL (PRIMARY) HYPERTENSION 11/08/2017 DAVID SALINAS MD Ot I25.10 ATHSCL HEART DISEASE OF [place] CORONARY 11/08/2017 DAVID SALINAS MD Ot 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 11/08/2017 DAVID SALINAS MD Ot K26.9 DUODENAL ULCER, UNSP ACUTE OR CHRONIC 11/08/2017 DAVID SALINAS MD Ot K29.50 UNSPECIFIED CHRONIC GASTRITIS WITHOUT BL 11/08/2017 DAVID SALINAS MD Ot K44.9 DIAPHRAGMATIC HERNIA WITHOUT OBSTRUCTION 11/08/2017 DAVID SALINAS MD Ot Z79.84 MCC (CURRENT) USE OF ORAL HYPOGLYC 11/08/2017 DAVID SALINAS MD Ot Z79.899 OTHER MCC (CURRENT) DRUG THERAPY 11/08/2017 DAVID SALINAS MD Ot D64.9 ANEMIA, UNSPECIFIED 11/08/2017 DAVID SALINAS MD Ot K92.2 GASTROINTESTINAL HEMORRHAGE, UNSPECIFIED 11/08/2017 DAVID SALINAS MD Ot Z01.818 ENCOUNTER FOR OTHER PREPROCEDURAL EXAMIN 11/08/2017 DAVID SALINAS MD Ot 414.01 CORONARY ATHEROSCLEROSIS OF [place] CORON 11/08/2017 DAVID SALINAS MD Ot 786.50 CHEST PAIN NOS 11/08/2017 DAVID SALINAS MD Ot D50.9 IRON DEFICIENCY ANEMIA, UNSPECIFIED 11/08/2017 DAVID SALINAS MD Ot E11.9 TYPE 2 DIABETES MELLITUS WITHOUT COMPLIC 11/08/2017 DAVID SALINAS MD Ot E78.5 HYPERLIPIDEMIA, UNSPECIFIED 11/08/2017 DAVID SALINAS MD Ot I10 ESSENTIAL (PRIMARY) HYPERTENSION 11/08/2017 DAVID SALINAS MD Ot I25.10 ATHSCL HEART DISEASE OF [place] CORONARY 11/08/2017 DAVID SALINAS MD Ot 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 11/08/2017 DAVID SALINAS MD Ot K26.9 DUODENAL ULCER, UNSP ACUTE OR CHRONIC 11/08/2017 DAVID SALINAS MD Ot K29.50 UNSPECIFIED CHRONIC GASTRITIS WITHOUT BL 11/08/2017 DAVID SALINAS MD, Ot K44.9 DIAPHRAGMATIC HERNIA WITHOUT OBSTRUCTION 11/08/2017 DAVID SALINAS MD, Ot Z79.84 APPOINTMENT CLERK (CURRENT) USE OF ORAL HYPOGLYC 11/08/2017 DAVID SALINAS MD, Ot Z79.899 OTHER MCC (CURRENT) DRUG THERAPY 11/08/2017 DAVID SALINAS MD, Ot D64.9 ANEMIA, UNSPECIFIED 11/08/2017 DAVID SALINAS MD, Ot K92.2 GASTROINTESTINAL HEMORRHAGE, UNSPECIFIED 11/08/2017 DAVID SALINAS MD, Ot Z01.818 ENCOUNTER FOR OTHER PREPROCEDURAL EXAMIN Procedures There is no data. Results Test Result Range Capillary blood glucose measurement by glucometer (mass/volume) - 11/06/17 08: 19 Capillary blood glucose measurement by glucometer (mass/volume) 135 mg/dL 70-110 Methicillin resistant Staphylococcus aureus (MRSA) screening culture - 08:19 Methicillin resistant Staphylococcus aureus (MRSA) screening culture NEG NRG Complete blood count (CBC) with automated white blood cell (WBC) differential - 11/08/17 11:04 Blood leukocytes automated count (number/volume) 11.9 10*3/uL 4.3-11.0 Blood erythrocytes automated count (number/volume) 4.68 10*6/uL 4.35-5.85 Venous blood hemoglobin measurement (mass/volume) 14.1 g/dL 13.3-17.7 Blood hematocrit (volume fraction) 43 % 40-54 Automated erythrocyte mean corpuscular volume 92 [foz_us] 80-99 Automated erythrocyte mean corpuscular hemoglobin (mass per erythrocyte) 30 pg 25-34 Automated erythrocyte mean corpuscular hemoglobin concentration measurement ( mass/volume) 33 g/dL 32-36 Automated erythrocyte distribution width ratio 13.9 % 10.0-14.5 Automated blood platelet count (count/volume) 270 10*3/uL 130-400 Automated blood platelet mean volume measurement 9.5 [foz_us] 7.4-10.4 Automated blood neutrophils/100 leukocytes 83 % 42-75 Automated blood lymphocytes/100 leukocytes 10 % 12-44 Blood monocytes/100 leukocytes 7 % 0-12 Automated blood eosinophils/100 leukocytes 0 % 0-10 Automated blood basophils/100 leukocytes 0 % 0-10 Blood neutrophils automated count (number/volume) 9.9 10*3 1.8-7.8 Blood lymphocytes automated count (number/volume) 1.2 10*3 1.0-4.0 Blood monocytes automated count (number/volume) 0.8 10*3 0.0-1.0 Automated eosinophil count 0.0 10*3/uL 0.0-0.3 Automated blood basophil count (count/volume) 0.0 10*3/uL 0.0-0.1 Comprehensive metabolic panel - 11/08/17 11:04 Serum or plasma sodium measurement (moles/volume) 140 mmol/L 135-145 Serum or plasma potassium measurement (moles/volume) 4.1 mmol/L 3.6-5.0 Serum or plasma chloride measurement (moles/volume) 103 mmol/L 98-107 Carbon dioxide 24 mmol/L 21-32 Serum or plasma anion gap determination (moles/volume) 13 mmol/L 5-14 Serum or plasma urea nitrogen measurement (mass/volume) 32 mg/dL 7-18 Serum or plasma creatinine measurement (mass/volume) 1.15 mg/dL 0.60-1.30 Serum or plasma urea nitrogen/creatinine mass ratio 28 NRG Serum or plasma creatinine measurement with calculation of estimated glomerular filtration rate > NRG Serum or plasma glucose measurement (mass/volume) 118 mg/dL 70-105 Serum or plasma calcium measurement (mass/volume) 10.4 mg/dL 8.5-10.1 Serum or plasma total bilirubin measurement (mass/volume) 0.9 mg/dL 0.1-1.0 Serum or plasma alkaline phosphatase measurement (enzymatic activity/volume) 32 U/L 40-136 Serum or plasma aspartate aminotransferase measurement (enzymatic activity/ volume) 43 U/L 5-34 Serum or plasma alanine aminotransferase measurement (enzymatic activity/volume ) 17 U/L 0-55 Serum or plasma protein measurement (mass/volume) 7.9 g/dL 6.4-8.2 Serum or plasma albumin measurement (mass/volume) 4.4 g/dL 3.2-4.5 Complete urinalysis with reflex to culture - 11/08/17 11:20 Urine color determination YELLOW NRG Urine clarity determination VERY CLOUDY NRG Urine pH measurement by test strip 6 5-9 Specific gravity of urine by test strip 1.015 1.016- 1.022 Urine protein assay by test strip, semi-quantitative 3+ NEGATIVE Urine glucose detection by automated test strip NEGATIVE NEGATIVE Erythrocytes detection in urine sediment by light microscopy 5+ NEGATIVE Urine ketones detection by automated test strip 2+ NEGATIVE Urine nitrite detection by test strip NEGATIVE NEGATIVE Urine total bilirubin detection by test strip NEGATIVE NEGATIVE Urine urobilinogen measurement by automated test strip (mass/volume) NORMAL NORMAL Urine leukocyte esterase detection by dipstick 3+ NEGATIVE Automated urine sediment erythrocyte count by microscopy (number/high power field) > [HPF] NRG Automated urine sediment leukocyte count by microscopy (number/high power field ) [HPF] NRG Bacteria detection in urine sediment by light microscopy TRACE NRG Squamous epithelial cells detection in urine sediment by light microscopy 0-2 NRG Crystals detection in urine sediment by light microscopy NONE NRG Casts detection in urine sediment by light microscopy NONE NRG Mucus detection in urine sediment by light microscopy NEGATIVE NRG Complete urinalysis with reflex to culture YES NRG Encounters ACCT No. Visit Date/Time Discharge Status Pt. Type Provider Facility Loc./Unit Complaint [id number] 11/08/2017 10:41:00 11/08/2017 13:19:00 DIS Emergency AMRIT SHARP APRN [facility] ER AMS [id number] 11/06/2017 07:51:00 11/06/2017 14:10:00 DIS Outpatient SRAVAN BRAVO DO [facility] SDC LEFT INGUINAL HERNIA [id number] 11/02/2017 06:05:00 11/02/2017 16:24:00 DIS Outpatient SRAVAN BRAVO DO [facility] PREOP LEFT INGUINAL HERNIA [id number] 08/24/2017 10:14:00 08/24/2017 23:59:59 CLS Preadmit DAVID SALINAS MD [facility] RAD MEMORY LOSS,WEIGHT LOSS [id number] 04/28/2017 08:43:00 04/28/2017 23:59:59 CLS Outpatient DAVID SALINAS MD [facility] ENDO ANEMIA; POSSIBLE UPPER GI BLEED [id number] 04/27/2017 13:04:00 04/27/2017 23:59:59 CLS Outpatient DAVID SALINAS MD [facility] PREOP ANEMIA; POSSIBLE UPPER GI BLEED [id number] 09/18/2013 09:13:00 09/18/2013 23:59:59 CLS Outpatient DAVID SALINAS MD [facility] LAB ASCAD WITH [id number] 10/25/2017 08:00:00 10/25/2017 23:59:59 CLS Outpatient David Salinas [facility]
== END 2017-11-08 13:19 | disposition home or self-care (01) ==
LOC: EDUNIT# 10:40 → ER 10:41
DX: N39.0 Urinary tract infection, site not specified (principal); F03.90 Unspecified dementia, unspecified severity, without behavioral disturbance, psychotic disturbance, mood disturbance, and anxiety; I10 Essential (primary) hypertension; Z87.19 Personal history of other diseases of the digestive system; Z79.84 Long term (current) use of oral hypoglycemic drugs; Z95.5 Presence of coronary angioplasty implant and graft
CPT/HCPCS: 36415; 70450; 71046; 80053; 81000; 85025; 87088; 93005

== ENCOUNTER → 2017-11-16 | Outpatient (CLI) | payer MEDICARE ==
[~2017-11-16] VITALS: Ht 162.6 cm; Wt 61.2 kg
[~2017-11-16] MED LIST changes: +Finasteride PO; +HYDR-3812 PO; +LEVO250T11 PO; +MEMORY SUPPLEMENT PO; +TAMS0.4C98 PO
[2017-11-16 10:40] VITALS: BP 149/69
== END ==
LOC: SDC 10:37
PROVIDERS: ATTEND Internal Medicine
DX: N39.0 Urinary tract infection, site not specified (principal)
CPT/HCPCS: 51798

== ENCOUNTER → 2017-12-11 | Outpatient (CLI) | payer MEDICARE ==
[~2017-12-11] VITALS: Ht 167.6 cm; Wt 54.6 kg
[~2017-12-11] MED LIST changes: +CIPR-225 PO; +FINA5TAB6 PO; +LACT20SO2 PO; +MAG-10 PO; +MENT71OI TP; -METF500T4 PO; +METF500T5 PO; +MIRT15TA PO; +MIRT15TA8 PO; +RISP0.2517 PO; +RISP0.253 PO; +RISP0.5T21 PO; +SIMV40TA PO
== END ==
LOC: PREOP 10:03
PROVIDERS: ATTEND Urology
DX: Z01.818 Encounter for other preprocedural examination (principal); C67.9 Malignant neoplasm of bladder, unspecified; N40.1 Benign prostatic hyperplasia with lower urinary tract symptoms; R33.8 Other retention of urine

== ENCOUNTER 2017-12-12 06:05 | Day surgery (SDC) | payer MEDICARE ==
[~2017-12-12] VITALS: Ht 167.6 cm; Wt 54.6 kg
[~2017-12-12 06:05] MED LIST changes: -CIPR-225 PO; -FINA5TAB6 PO; -LACT20SO2 PO; -MAG-10 PO; -MENT71OI TP; -MIRT15TA PO; -RISP0.2517 PO; -RISP0.5T21 PO; -SIMV40TA PO
--- OUTSIDE RECORDS SUMMARY | 2017-12-12 06:09 | XMS REPORT | Continuity of Care Document ---
Author Author [facility] Organization [facility] Address Unknown Phone Unavailable Allergies Active Description Code Type Severity Reaction Onset Reported/Identified Relationship to Patient Clinical Status Yes NO KNOWN DRUG ALLERGIES UNKNOWN NO KNOWN DRUG ALLERG Yes No Known Drug Allergies [id number] Drug Allergy Unknown N/A 02/14/2011 Medications Medication Packaging Start Date Stop Date Route Dosage Sig ACETAMINOPHEN ORAL TABLET 325mg(Tylenol) MG 11/29/2017 12/28/2017 PRN EVERY 6 Hour POLYETHYLENE GLYCOL POWDER UD PWD (MIRALAX 17GM UNIT DOSE PAKS) gm 11/29/2017 12/29/2017 PRN Q3H ALUM/MAG/SIMETH 30CC LIQ (MYLANTA PLUS) cc 11/29/2017 12/29/2017 PRN Q4H HYDROCODONE/APAP 5MG/325MG TAB 5 MG/325MG (CHARLOTTE-TAB 5/325) TAB 11/29/2017 11/29/2017 PRN ONCE CARVEDILOL TAB 12.5 MG (COREG) MG 11/29/2017 12/28/2017 BID&0800,2000 CEFUROXIME TAB 250 MG (CEFTIN) MG 11/29/2017 12/08/2017 BID&0800,2000 CALMOSEPTINE OINT TUBE (RISAMINE OINT) marie 11/29/2017 12/05/2017 PRN QID RISPERIDONE DISSOLVETAB TAB 0.25 MG (RISPERDAL M-TAB) MG 11/29/2017 12/28/2017 BID&0800,2000 LOPERAMIDE CAP 2 MG (IMMODIUM) MG 11/29/2017 12/29/2017 PRN QID LACTULOSE SYRUP LIQ 20 GM/30CC (CHRONULAC SYRUP) GM 11/29/2017 12/28/2017 BID&0800,2000 MILK OF MAGNESIA LIQ ml 11/29/2017 12/28/2017 PRN BID LEVOFOXACIN TAB 250 MG (LEVAQUIN) MG 11/29/2017 11/29/2017 ONCE&0900 LEVOFOXACIN TAB 250 MG (LEVAQUIN) MG 11/29/2017 12/03/2017 Daily&0900 LISINOPRIL TAB 5 MG (ZESTRIL) MG 12/28/2017 Daily&0900 FINASTERIDE TAB 5 MG (PROSCAR) MG 11/29/2017 12/28/2017 Daily&0900 BISACODYL SUPPOS 10 MG (DULCOLAX SUPPOS) MG 11/29/2017 12/29/2017 PRN Daily RISPERIDONE TAB 0.25 MG (RISPERDAL) MG 11/29/2017 12/29/2017 PRN Q6H TAMSULOSIN CAP 0.4 MG (FLOMAX) MG 11/29/2017 12/28/2017 QPM&1800 SIMVASTATIN TAB 40 MG (ZOCOR) MG 12/28/2017 QPM&2000 TRAZODONE TAB 50 MG (DESYREL) MG 12/28/2017 PRN QHS MIRTAZAPINE TAB 15 MG (REMERON) MG 11/29/2017 12/28/2017 QHS&2100 MELATONIN TAB 3 MG (MELATONIN) MG 11/29/2017 12/29/2017 PRN QHS MUPIROCIN OINT 2 % (BACTROBAN) marie 11/30/2017 12/06/2017 BID&0800,2000 RISPERIDONE TAB 0.5 MG (RISPERDAL) MG 11/30/2017 12/29/2017 QHS&2100 RISPERIDONE TAB 0.25 MG (RISPERDAL) MG 12/01/2017 12/30/2017 Daily&0900 RISPERIDONE DISSOLVETAB TAB 0.25 MG (RISPERDAL M-TAB) MG 12/02/2017 01/01/2018 PRN Q6H RISPERIDONE DISSOLVABLE TAB 0.5 MG (RISPERDAL M-TAB) MG 12/02/2017 01/01/2018 BID&0800,2000 RISPERIDONE DISSOLVABLE TAB 0.5 MG (RISPERDAL M-TAB) MG 12/03/2017 01/02/2018 BID&0600,1800 Problems Date Dx Coded Attending Type Code Diagnosis Diagnosed By 05/02/2017 DAVID SALINAS MD Ot D50.9 IRON DEFICIENCY ANEMIA, UNSPECIFIED 05/02/2017 DAVID SALINAS MD Ot E11.9 TYPE 2 DIABETES MELLITUS WITHOUT COMPLIC 05/02/2017 DAVID SALINAS MD Ot E78.5 HYPERLIPIDEMIA, UNSPECIFIED 05/02/2017 DAVID SALINAS MD Ot I10 ESSENTIAL (PRIMARY) HYPERTENSION 05/02/2017 DAVID SALINAS MD Ot I25.10 ATHSCL HEART DISEASE OF [place] CORONARY 05/02/2017 DAVID SALINAS MD Ot 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 05/02/2017 DAVID SALINAS MD Ot K26.9 DUODENAL ULCER, UNSP ACUTE OR CHRONIC 05/02/2017 DAVID SALINAS MD Ot K29.50 UNSPECIFIED CHRONIC GASTRITIS WITHOUT BL 05/02/2017 DAVID SALINAS MD Ot K44.9 DIAPHRAGMATIC HERNIA WITHOUT OBSTRUCTION 05/02/2017 DAVID SALINAS MD Ot Z79.84 DETENTION (CURRENT) USE OF ORAL HYPOGLYC 05/02/2017 DAVID SALINAS MD Ot Z79.899 OTHER DETENTION (CURRENT) DRUG THERAPY 05/04/2017 DAVID SALINAS MD Ot D50.9 IRON DEFICIENCY ANEMIA, UNSPECIFIED 05/04/2017 DAVID SALINAS MD Ot E11.9 TYPE 2 DIABETES MELLITUS WITHOUT COMPLIC 05/04/2017 DAVID SALINAS MD Ot E78.5 HYPERLIPIDEMIA, UNSPECIFIED 05/04/2017 DAVID SALINAS MD Ot I10 ESSENTIAL (PRIMARY) HYPERTENSION 05/04/2017 DAVID SALINAS MD Ot I25.10 ATHSCL HEART DISEASE OF [place] CORONARY 05/04/2017 DAVID SALINAS MD Ot 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 05/04/2017 DAVID SALINAS MD Ot K26.9 DUODENAL ULCER, UNSP ACUTE OR CHRONIC 05/04/2017 DAVID SALINAS MD Ot K29.50 UNSPECIFIED CHRONIC GASTRITIS WITHOUT BL 05/04/2017 DAVID SALINAS MD Ot K44.9 DIAPHRAGMATIC HERNIA WITHOUT OBSTRUCTION 05/04/2017 DAVID SALINAS MD Ot Z79.84 GUN FITTER (CURRENT) USE OF ORAL HYPOGLYC 05/04/2017 DAVID SALINAS MD Ot Z79.899 OTHER GUN FITTER (CURRENT) DRUG THERAPY 05/11/2017 DAVID SALINAS MD Ot D50.9 IRON DEFICIENCY ANEMIA, UNSPECIFIED 05/11/2017 DAVID SALINAS MD Ot E11.9 TYPE 2 DIABETES MELLITUS WITHOUT COMPLIC 05/11/2017 DAVID SALINAS MD Ot E78.5 HYPERLIPIDEMIA, UNSPECIFIED 05/11/2017 DAVID SALINAS MD Ot I10 ESSENTIAL (PRIMARY) HYPERTENSION 05/11/2017 DAVID SALINAS MD Ot I25.10 ATHSCL HEART DISEASE OF [place] CORONARY 05/11/2017 DAVID SALINAS MD Ot 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 05/11/2017 DAVID SALINAS MD Ot K26.9 DUODENAL ULCER, UNSP ACUTE OR CHRONIC 05/11/2017 DAVID SALINAS MD Ot K29.50 UNSPECIFIED CHRONIC GASTRITIS WITHOUT BL 05/11/2017 DAVID SALINAS MD Ot K44.9 DIAPHRAGMATIC HERNIA WITHOUT OBSTRUCTION 05/11/2017 DAVID SALINAS MD Ot Z79.84 DETENTION (CURRENT) USE OF ORAL HYPOGLYC 05/11/2017 DAVID SALINAS MD Ot Z79.899 OTHER DETENTION (CURRENT) DRUG THERAPY 06/02/2017 DAVID SALINAS MD Ot D50.9 IRON DEFICIENCY ANEMIA, UNSPECIFIED 06/02/2017 DAVID SALINAS MD Ot E11.9 TYPE 2 DIABETES MELLITUS WITHOUT COMPLIC 06/02/2017 DAVID SALINAS MD Ot E78.5 HYPERLIPIDEMIA, UNSPECIFIED 06/02/2017 DAVID SALINAS MD Ot I10 ESSENTIAL (PRIMARY) HYPERTENSION 06/02/2017 DAVID SALINAS MD Ot I25.10 ATHSCL HEART DISEASE OF [place] CORONARY 06/02/2017 DAVID SALINAS MD Ot 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 06/02/2017 DAVID SALINAS MD Ot K26.9 DUODENAL ULCER, UNSP ACUTE OR CHRONIC 06/02/2017 DAVID SALINAS MD Ot K29.50 UNSPECIFIED CHRONIC GASTRITIS WITHOUT BL 06/02/2017 DAVID SALINAS MD Ot K44.9 DIAPHRAGMATIC HERNIA WITHOUT OBSTRUCTION 06/02/2017 DAVID SALINAS MD Ot Z79.84 GUN FITTER (CURRENT) USE OF ORAL HYPOGLYC 06/02/2017 DAVID SALINAS MD Ot Z79.899 OTHER GUN FITTER (CURRENT) DRUG THERAPY 11/02/2017 DAVID SALINAS MD Ot 414.01 CORONARY ATHEROSCLEROSIS OF [place] CORON 11/02/2017 DAVID SALINAS MD Ot 786.50 CHEST PAIN NOS 11/02/2017 SALINAS MD, DAVID D Ot D50.9 IRON DEFICIENCY ANEMIA, UNSPECIFIED 11/02/2017 DAVID SALINAS MD Ot E11.9 TYPE 2 DIABETES MELLITUS WITHOUT COMPLIC 11/02/2017 DAVID SALINAS MD Ot E78.5 HYPERLIPIDEMIA, UNSPECIFIED 11/02/2017 DAVID SALINAS MD Ot I10 ESSENTIAL (PRIMARY) HYPERTENSION 11/02/2017 DAVID SALINAS MD Ot I25.10 ATHSCL HEART DISEASE OF [place] CORONARY 11/02/2017 DAVID SALINAS MD Ot 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 11/02/2017 DAVID SALINAS MD, Ot K26.9 DUODENAL ULCER, UNSP ACUTE OR CHRONIC 11/02/2017 DAVID SALINAS MD Ot K29.50 UNSPECIFIED CHRONIC GASTRITIS WITHOUT BL 11/02/2017 DAVID SALINAS MD Ot K44.9 DIAPHRAGMATIC HERNIA WITHOUT OBSTRUCTION 11/02/2017 DAVID SALINAS MD Ot Z79.84 DETENTION (CURRENT) USE OF ORAL HYPOGLYC 11/02/2017 DAVID SALINAS MD Ot Z79.899 OTHER DETENTION (CURRENT) DRUG THERAPY 11/02/2017 DAVID SALINAS MD Ot D64.9 ANEMIA, UNSPECIFIED 11/02/2017 DAVID SALINAS MD Ot K92.2 GASTROINTESTINAL HEMORRHAGE, UNSPECIFIED 11/02/2017 DAVID SALINAS MD Ot Z01.818 ENCOUNTER FOR OTHER PREPROCEDURAL EXAMIN 11/02/2017 SRAVAN BRAVO DO Ot K40.90 UNIL INGUINAL HERNIA, W/O OBST OR GANGR, 11/02/2017 SRAVAN BRAVO DO Ot Z01.818 ENCOUNTER FOR OTHER PREPROCEDURAL EXAMIN 11/06/2017 SRAVAN BRAVO DO B Ot E11.9 TYPE 2 DIABETES MELLITUS WITHOUT COMPLIC 11/06/2017 SRAVAN BRAVO DO Ot E78.5 HYPERLIPIDEMIA, UNSPECIFIED 11/06/2017 SRAVAN BRAVO DO B Ot I10 ESSENTIAL (PRIMARY) HYPERTENSION 11/06/2017 SRAVAN BRAVO DO Ot I25.10 ATHSCL HEART DISEASE OF [place] CORONARY 11/06/2017 SRAVAN BRAVO DO B Ot K21.9 GASTRO-ESOPHAGEAL REFLUX DISEASE WITHOUT 11/06/2017 JOEL BRAVO DOIC B Ot 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, W OBST, W/O GANGR, 11/06/2017 LAWRENCE NEELY SRAVAN B Ot Z11.2 ENCOUNTER FOR SCREENING FOR OTHER BACTER 11/06/2017 LAWRENCE NEELY SRAVAN B Ot Z79.84 GUN FITTER (CURRENT) USE OF ORAL HYPOGLYC 11/06/2017 LAWRENCE NEELY SRAVAN B Ot Z79.899 OTHER GUN FITTER (CURRENT) DRUG THERAPY 11/06/2017 LAWRENCE NEELY SRAVAN B Ot Z95.1 PRESENCE OF AORTOCORONARY BYPASS GRAFT 11/06/2017 LAWRENCE NEELY SRAVAN B Ot K40.90 UNIL INGUINAL HERNIA, W/O OBST OR GANGR, 11/06/2017 LAWRENCE NEELY SRAVAN B Ot Z01.818 ENCOUNTER FOR OTHER PREPROCEDURAL EXAMIN 11/07/2017 ALIDAWARNER DO SRAVAN B Ot E11.9 TYPE 2 DIABETES MELLITUS WITHOUT COMPLIC 11/07/2017 LAWRENCE DO SRAVAN B Ot E78.5 HYPERLIPIDEMIA, UNSPECIFIED 11/07/2017 ALIDAWARNER NEELY SRAVAN B Ot I10 ESSENTIAL (PRIMARY) HYPERTENSION 11/07/2017 LAWRENCE NEELY SRAVAN B Ot I25.10 ATHSCL HEART DISEASE OF [place] CORONARY 11/07/2017 LAWRENCE NEELY SRAVAN B Ot K21.9 GASTRO-ESOPHAGEAL REFLUX DISEASE WITHOUT 11/07/2017 LAWRENCE NEELY, SRAVAN B Ot 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, W OBST, W/O GANGR, 11/07/2017 LAWRENCE NEELY SRAVAN B Ot Z11.2 ENCOUNTER FOR SCREENING FOR OTHER BACTER 11/07/2017 LAWRENCE NEELY SRAVAN B Ot Z79.84 GUN FITTER (CURRENT) USE OF ORAL HYPOGLYC 11/07/2017 LAWRENCE NEELY SRAVAN B Ot Z79.899 OTHER GUN FITTER (CURRENT) DRUG THERAPY 11/07/2017 LAWRENCE NEELY SRAVAN B Ot Z95.1 PRESENCE OF AORTOCORONARY BYPASS GRAFT 11/08/2017 DAVID SALINAS MD Ot 414.01 CORONARY ATHEROSCLEROSIS OF [place] CORON 11/08/2017 DAVID SALINAS MD Ot 786.50 CHEST PAIN NOS 11/08/2017 DAVID SALINAS MD Ot D50.9 IRON DEFICIENCY ANEMIA, UNSPECIFIED 11/08/2017 DAVID SALINAS MD Ot E11.9 TYPE 2 DIABETES MELLITUS WITHOUT COMPLIC 11/08/2017 DAVID SALINAS MD Ot E78.5 HYPERLIPIDEMIA, UNSPECIFIED 11/08/2017 DAVID SALINAS MD Ot I10 ESSENTIAL (PRIMARY) HYPERTENSION 11/08/2017 DAVID SALINAS MD Ot I25.10 ATHSCL HEART DISEASE OF [place] CORONARY 11/08/2017 DAVID SALINAS MD Ot 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 11/08/2017 DAVID SALINAS MD Ot K26.9 DUODENAL ULCER, UNSP ACUTE OR CHRONIC 11/08/2017 DAVID SALINAS MD Ot K29.50 UNSPECIFIED CHRONIC GASTRITIS WITHOUT BL 11/08/2017 DAVID SALINAS MD Ot K44.9 DIAPHRAGMATIC HERNIA WITHOUT OBSTRUCTION 11/08/2017 DAVID SALINAS MD Ot Z79.84 GUN FITTER (CURRENT) USE OF ORAL HYPOGLYC 11/08/2017 DAVID SALINAS MD Ot Z79.899 OTHER DETENTION (CURRENT) DRUG THERAPY 11/08/2017 DAVID SALINAS MD Ot D64.9 ANEMIA, UNSPECIFIED 11/08/2017 DAVID SALINAS MD Ot K92.2 GASTROINTESTINAL HEMORRHAGE, UNSPECIFIED 11/08/2017 DAVID SALINAS MD Ot Z01.818 ENCOUNTER FOR OTHER PREPROCEDURAL EXAMIN 11/08/2017 AMRIT SHARP APRN Ot F03.90 UNSPECIFIED DEMENTIA WITHOUT BEHAVIORAL 11/08/2017 AMRIT SHARP BREAKER MECHANIC Ot I10 ESSENTIAL (PRIMARY) HYPERTENSION 11/08/2017 AMRIT SHARP APRN Ot N39.0 URINARY TRACT INFECTION, SITE NOT SPECIF 11/08/2017 AMRIT SHARP APRN Ot R41.82 ALTERED MENTAL STATUS, UNSPECIFIED 11/08/2017 AMRIT SHARP APRN Ot Z79.84 GUN FITTER (CURRENT) USE OF ORAL HYPOGLYC 11/08/2017 AMRIT SHARP APRN Ot Z87.19 PERSONAL HISTORY OF OTHER DISEASES OF TH 11/08/2017 AMRIT SHARP APRN Ot Z95.5 PRESENCE OF CORONARY ANGIOPLASTY IMPLANT 11/08/2017 DAVID SALINAS MD Ot 414.01 CORONARY ATHEROSCLEROSIS OF [place] CORON 11/08/2017 DAVID SALINAS MD Ot 786.50 CHEST PAIN NOS 11/08/2017 DAVID SALINAS MD Ot D50.9 IRON DEFICIENCY ANEMIA, UNSPECIFIED 11/08/2017 DAVID SALINAS MD Ot E11.9 TYPE 2 DIABETES MELLITUS WITHOUT COMPLIC 11/08/2017 DAVID SALINAS MD Ot E78.5 HYPERLIPIDEMIA, UNSPECIFIED 11/08/2017 DAVID SALINAS MD Ot I10 ESSENTIAL (PRIMARY) HYPERTENSION 11/08/2017 DAVID SALINAS MD Ot I25.10 ATHSCL HEART DISEASE OF [place] CORONARY 11/08/2017 DAVID SALINAS MD Ot 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 11/08/2017 DAVID SALINAS MD Ot K26.9 DUODENAL ULCER, UNSP ACUTE OR CHRONIC 11/08/2017 DAVID SALINAS MD Ot K29.50 UNSPECIFIED CHRONIC GASTRITIS WITHOUT BL 11/08/2017 DAVID SALINAS MD, Ot K44.9 DIAPHRAGMATIC HERNIA WITHOUT OBSTRUCTION 11/08/2017 DAVID SALINAS MD Ot Z79.84 GUN FITTER (CURRENT) USE OF ORAL HYPOGLYC 11/08/2017 DAVID SALINAS MD Ot Z79.899 OTHER DETENTION (CURRENT) DRUG THERAPY 11/08/2017 DAVID SALINAS MD Ot D64.9 ANEMIA, UNSPECIFIED 11/08/2017 DAVID SALINAS MD Ot K92.2 GASTROINTESTINAL HEMORRHAGE, UNSPECIFIED 11/08/2017 DAVID SALINAS MD Ot Z01.818 ENCOUNTER FOR OTHER PREPROCEDURAL EXAMIN 11/08/2017 DAVID SALINAS MD Ot 414.01 CORONARY ATHEROSCLEROSIS OF [place] CORON 11/08/2017 DAVID SALINAS MD Ot 786.50 CHEST PAIN NOS 11/08/2017 DAVID SALINAS MD Ot D50.9 IRON DEFICIENCY ANEMIA, UNSPECIFIED 11/08/2017 DAVID SALINAS MD Ot E11.9 TYPE 2 DIABETES MELLITUS WITHOUT COMPLIC 11/08/2017 DAVID SALINAS MD Ot E78.5 HYPERLIPIDEMIA, UNSPECIFIED 11/08/2017 DAVID SALINAS MD Ot I10 ESSENTIAL (PRIMARY) HYPERTENSION 11/08/2017 DAVID SALINAS MD Ot I25.10 ATHSCL HEART DISEASE OF [place] CORONARY 11/08/2017 DAVID SALINAS MD Ot 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 11/08/2017 DAVID SALINAS MD Ot K26.9 DUODENAL ULCER, UNSP ACUTE OR CHRONIC 11/08/2017 DAVID SALINAS MD Ot K29.50 UNSPECIFIED CHRONIC GASTRITIS WITHOUT BL 11/08/2017 DAVID SALINAS MD Ot K44.9 DIAPHRAGMATIC HERNIA WITHOUT OBSTRUCTION 11/08/2017 DAVID SALINAS MD Ot Z79.84 GUN FITTER (CURRENT) USE OF ORAL HYPOGLYC 11/08/2017 DAVID SALINAS MD Ot Z79.899 OTHER DETENTION (CURRENT) DRUG THERAPY 11/08/2017 DAVID SALINAS MD Ot D64.9 ANEMIA, UNSPECIFIED 11/08/2017 DAVID SALINAS MD Ot K92.2 GASTROINTESTINAL HEMORRHAGE, UNSPECIFIED 11/08/2017 DAVID SALINAS MD Ot Z01.818 ENCOUNTER FOR OTHER PREPROCEDURAL EXAMIN 11/09/2017 DAVID SALINAS MD Ot 414.01 CORONARY ATHEROSCLEROSIS OF [place] CORON 11/09/2017 DAVID SALINAS MD Ot 786.50 CHEST PAIN NOS 11/09/2017 DAVID SALINAS MD Ot D50.9 IRON DEFICIENCY ANEMIA, UNSPECIFIED 11/09/2017 DAVID SALINAS MD Ot E11.9 TYPE 2 DIABETES MELLITUS WITHOUT COMPLIC 11/09/2017 DAVID SALINAS MD Ot E78.5 HYPERLIPIDEMIA, UNSPECIFIED 11/09/2017 DAVID SALINAS MD Ot I10 ESSENTIAL (PRIMARY) HYPERTENSION 11/09/2017 DAVID SALINAS MD Ot I25.10 ATHSCL HEART DISEASE OF [place] CORONARY 11/09/2017 DAVID SALINAS MD Ot 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 11/09/2017 DAVID SALINAS MD Ot K26.9 DUODENAL ULCER, UNSP ACUTE OR CHRONIC 11/09/2017 DAVID SALINAS MD Ot K29.50 UNSPECIFIED CHRONIC GASTRITIS WITHOUT BL 11/09/2017 DAVID SALINAS MD Ot K44.9 DIAPHRAGMATIC HERNIA WITHOUT OBSTRUCTION 11/09/2017 DAVID SALINAS MD Ot Z79.84 DETENTION (CURRENT) USE OF ORAL HYPOGLYC 11/09/2017 DAVID SALINAS MD Ot Z79.899 OTHER GUN FITTER (CURRENT) DRUG THERAPY 11/09/2017 DAVID SALINAS MD Ot D64.9 ANEMIA, UNSPECIFIED 11/09/2017 DAVID SALINAS MD Ot K92.2 GASTROINTESTINAL HEMORRHAGE, UNSPECIFIED 11/09/2017 DAVID SALINAS MD Ot Z01.818 ENCOUNTER FOR OTHER PREPROCEDURAL EXAMIN 11/10/2017 AMRIT SHARP APRN Ot F03.90 UNSPECIFIED DEMENTIA WITHOUT BEHAVIORAL 11/10/2017 AMRIT SHARP APRN Ot I10 ESSENTIAL (PRIMARY) HYPERTENSION 11/10/2017 AMRIT SHARP APRN Ot N39.0 URINARY TRACT INFECTION, SITE NOT SPECIF 11/10/2017 AMRIT SHARP APRN Ot R41.82 ALTERED MENTAL STATUS, UNSPECIFIED 11/10/2017 AMRIT SHARP APRN Ot Z79.84 DETENTION (CURRENT) USE OF ORAL HYPOGLYC 11/10/2017 AMRIT SHARP APRN Ot Z87.19 PERSONAL HISTORY OF OTHER DISEASES OF TH 11/10/2017 AMRIT SHARP APRN Ot Z95.5 PRESENCE OF CORONARY ANGIOPLASTY IMPLANT 11/13/2017 JOEL BRAVO DOIC B Ot E11.9 TYPE 2 DIABETES MELLITUS WITHOUT COMPLIC 11/13/2017 JOEL BRAVO DOIC B Ot E78.5 HYPERLIPIDEMIA, UNSPECIFIED 11/13/2017 LAWRENCE NEELY SRAVAN B Ot I10 ESSENTIAL (PRIMARY) HYPERTENSION 11/13/2017 LAWRENCE NEELY SRAVAN B Ot I25.10 ATHSCL HEART DISEASE OF [place] CORONARY 11/13/2017 JOEL BRAVO DOIC B Ot K21.9 GASTRO-ESOPHAGEAL REFLUX DISEASE WITHOUT 11/13/2017 JOEL BRAVO DOIC B Ot 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, W OBST, W/O GANGR, 11/13/2017 SRAVAN BRAVO DO B Ot Z11.2 ENCOUNTER FOR SCREENING FOR OTHER BACTER 11/13/2017 LAWRENCE NEELY SRAVAN B Ot Z79.84 GUN FITTER (CURRENT) USE OF ORAL HYPOGLYC 11/13/2017 JOEL BRAVO DOIC B Ot Z79.899 OTHER GUN FITTER (CURRENT) DRUG THERAPY 11/13/2017 JOEL BRAVO DOIC B Ot Z95.1 PRESENCE OF AORTOCORONARY BYPASS GRAFT 11/20/2017 CONOR WILSON MD Ot E11.9 TYPE 2 DIABETES MELLITUS WITHOUT COMPLIC 11/20/2017 CONOR WILSON MD Ot F02.80 DEMENTIA IN OTH DISEASES CLASSD ELSWHR W 11/20/2017 CONOR WILSON MD, Ot G30.9 ALZHEIMER'S DISEASE, UNSPECIFIED 11/20/2017 CONOR WILSON MD Ot I10 ESSENTIAL (PRIMARY) HYPERTENSION 11/20/2017 CONOR WILSON MD Ot I25.810 ATHEROSCLEROSIS OF CABG W/O ANGINA PECTO 11/20/2017 CONOR WILSON MD Ot N30.01 ACUTE CYSTITIS WITH HEMATURIA 11/20/2017 CONOR WILSON MD Ot Z79.84 DETENTION (CURRENT) USE OF ORAL HYPOGLYC 11/20/2017 CONOR WILSON MD Ot Z95.1 PRESENCE OF AORTOCORONARY BYPASS GRAFT 11/20/2017 CONOR WILSON MD Ot Z95.5 PRESENCE OF CORONARY ANGIOPLASTY IMPLANT 11/20/2017 JOSEPH WHARTON, DAVID Foreman Ot N39.0 URINARY TRACT INFECTION, SITE NOT SPECIF 11/20/2017 CONOR WILSON MD Ot E11.9 TYPE 2 DIABETES MELLITUS WITHOUT COMPLIC 11/20/2017 CONOR WILSON MD Ot F02.80 DEMENTIA IN OTH DISEASES CLASSD ELSWHR W 11/20/2017 CONOR WILSON MD Ot G30.9 ALZHEIMER'S DISEASE, UNSPECIFIED 11/20/2017 CONOR WILSON MD Ot I10 ESSENTIAL (PRIMARY) HYPERTENSION 11/20/2017 CONOR WILSON MD Ot I25.810 ATHEROSCLEROSIS OF CABG W/O ANGINA PECTO 11/20/2017 CONOR WILSON MD Ot N30.01 ACUTE CYSTITIS WITH HEMATURIA 11/20/2017 CONOR WILSON MD Ot Z79.84 DETENTION (CURRENT) USE OF ORAL HYPOGLYC 11/20/2017 CONOR WILSON MD Ot Z95.1 PRESENCE OF AORTOCORONARY BYPASS GRAFT 11/20/2017 CONOR WILSON MD Ot Z95.5 PRESENCE OF CORONARY ANGIOPLASTY IMPLANT 11/20/2017 CONOR WILSON MD Ot E11.9 TYPE 2 DIABETES MELLITUS WITHOUT COMPLIC 11/20/2017 CONOR WILSON MD Ot F02.80 DEMENTIA IN OTH DISEASES CLASSD ELSWHR W 11/20/2017 CONOR WILSON MD Ot G30.9 ALZHEIMER'S DISEASE, UNSPECIFIED 11/20/2017 CONOR WILSON MD Ot I10 ESSENTIAL (PRIMARY) HYPERTENSION 11/20/2017 CONOR WILSON MD Ot I25.810 ATHEROSCLEROSIS OF CABG W/O ANGINA PECTO 11/20/2017 CONOR WILSON MD Ot N30.01 ACUTE CYSTITIS WITH HEMATURIA 11/20/2017 CONOR WILSON MD Ot Z79.84 DETENTION (CURRENT) USE OF ORAL HYPOGLYC 11/20/2017 CONOR WILSON MD Ot Z95.1 PRESENCE OF AORTOCORONARY BYPASS GRAFT 11/20/2017 CONOR WILSON MD Ot Z95.5 PRESENCE OF CORONARY ANGIOPLASTY IMPLANT 11/21/2017 CONOR WILSON MD Ot E11.9 TYPE 2 DIABETES MELLITUS WITHOUT COMPLIC 11/21/2017 CONOR WILSON MD Ot F02.80 DEMENTIA IN OTH DISEASES CLASSD ELSWHR W 11/21/2017 CONOR WILSON MD Ot G30.9 ALZHEIMER'S DISEASE, UNSPECIFIED 11/21/2017 CONOR WILSON MD Ot I10 ESSENTIAL (PRIMARY) HYPERTENSION 11/21/2017 CONOR WILSON MD Ot I25.810 ATHEROSCLEROSIS OF CABG W/O ANGINA PECTO 11/21/2017 CONOR WILSON MD Ot N30.01 ACUTE CYSTITIS WITH HEMATURIA 11/21/2017 CONOR WILSON MD Ot Z79.84 GUN FITTER (CURRENT) USE OF ORAL HYPOGLYC 11/21/2017 CONOR WILSON MD Ot Z95.1 PRESENCE OF AORTOCORONARY BYPASS GRAFT 11/21/2017 CONOR WILSON MD Ot Z95.5 PRESENCE OF CORONARY ANGIOPLASTY IMPLANT 11/21/2017 CONOR WILSON MD Ot E11.9 TYPE 2 DIABETES MELLITUS WITHOUT COMPLIC 11/21/2017 CONOR WILSON MD Ot F02.80 DEMENTIA IN OTH DISEASES CLASSD ELSWHR W 11/21/2017 CONOR WILSON MD, Ot G30.9 ALZHEIMER'S DISEASE, UNSPECIFIED 11/21/2017 CONRO WILSON MD Ot I10 ESSENTIAL (PRIMARY) HYPERTENSION 11/21/2017 CONOR WILSON MD Ot I25.810 ATHEROSCLEROSIS OF CABG W/O ANGINA PECTO 11/21/2017 CONOR WILSON MD Ot N30.01 ACUTE CYSTITIS WITH HEMATURIA 11/21/2017 CONOR WILSON MD Ot Z79.84 GUN FITTER (CURRENT) USE OF ORAL HYPOGLYC 11/21/2017 CONOR WILSON MD Ot Z95.1 PRESENCE OF AORTOCORONARY BYPASS GRAFT 11/21/2017 CONOR WILSON MD Ot Z95.5 PRESENCE OF CORONARY ANGIOPLASTY IMPLANT 11/22/2017 CONOR WILSON MD Ot E11.9 TYPE 2 DIABETES MELLITUS WITHOUT COMPLIC 11/22/2017 CONOR WILSON MD Ot F02.80 DEMENTIA IN OTH DISEASES CLASSD ELSWHR W 11/22/2017 CONOR WILSON MD Ot G30.9 ALZHEIMER'S DISEASE, UNSPECIFIED 11/22/2017 CONOR WILSON MD Ot I10 ESSENTIAL (PRIMARY) HYPERTENSION 11/22/2017 CONOR WILSON MD Ot I25.810 ATHEROSCLEROSIS OF CABG W/O ANGINA PECTO 11/22/2017 CONOR WILSON MD Ot N30.01 ACUTE CYSTITIS WITH HEMATURIA 11/22/2017 CONOR WILSON MD Ot Z79.84 GUN FITTER (CURRENT) USE OF ORAL HYPOGLYC 11/22/2017 CONOR WILSON MD Ot Z95.1 PRESENCE OF AORTOCORONARY BYPASS GRAFT 11/22/2017 CONOR WILSON MD Ot Z95.5 PRESENCE OF CORONARY ANGIOPLASTY IMPLANT 11/24/2017 CONOR WILSON MD Ot E11.9 TYPE 2 DIABETES MELLITUS WITHOUT COMPLIC 11/24/2017 CONOR WILSON MD Ot F02.80 DEMENTIA IN OTH DISEASES CLASSD ELSWHR W 11/24/2017 CONOR WILSON MD, Ot G30.9 ALZHEIMER'S DISEASE, UNSPECIFIED 11/24/2017 CONOR WILSON MD Ot I10 ESSENTIAL (PRIMARY) HYPERTENSION 11/24/2017 CONOR WILSON MD Ot I25.810 ATHEROSCLEROSIS OF CABG W/O ANGINA PECTO 11/24/2017 CONOR WILSON MD Ot N30.01 ACUTE CYSTITIS WITH HEMATURIA 11/24/2017 CONOR WILSON MD Ot Z79.84 DETENTION (CURRENT) USE OF ORAL HYPOGLYC 11/24/2017 CONOR WILSON MD Ot Z95.1 PRESENCE OF AORTOCORONARY BYPASS GRAFT 11/24/2017 CONOR WILSON MD Ot Z95.5 PRESENCE OF CORONARY ANGIOPLASTY IMPLANT 11/24/2017 CONOR WILSON MD Ot E11.9 TYPE 2 DIABETES MELLITUS WITHOUT COMPLIC 11/24/2017 CONOR WILSON MD Ot F02.80 DEMENTIA IN OTH DISEASES CLASSD ELSWHR W 11/24/2017 CONOR WILSON MD, Ot G30.9 ALZHEIMER'S DISEASE, UNSPECIFIED 11/24/2017 CONOR WILSON MD Ot I10 ESSENTIAL (PRIMARY) HYPERTENSION 11/24/2017 CONOR WILSON MD Ot I25.810 ATHEROSCLEROSIS OF CABG W/O ANGINA PECTO 11/24/2017 CONOR WILSON MD Ot N30.01 ACUTE CYSTITIS WITH HEMATURIA 11/24/2017 CONOR WILSON MD Ot Z79.84 DETENTION (CURRENT) USE OF ORAL HYPOGLYC 11/24/2017 CONOR WILSON MD Ot Z95.1 PRESENCE OF AORTOCORONARY BYPASS GRAFT 11/24/2017 CONOR WILSON MD Ot Z95.5 PRESENCE OF CORONARY ANGIOPLASTY IMPLANT 11/24/2017 CONOR WILSON MD Ot E11.9 TYPE 2 DIABETES MELLITUS WITHOUT COMPLIC 11/24/2017 CONOR WILSON MD Ot F02.80 DEMENTIA IN OTH DISEASES CLASSD ELSWHR W 11/24/2017 CONOR WILSON MD, Ot G30.9 ALZHEIMER'S DISEASE, UNSPECIFIED 11/24/2017 CONOR WILSON MD Ot I10 ESSENTIAL (PRIMARY) HYPERTENSION 11/24/2017 CONOR WILSON MD Ot I25.810 ATHEROSCLEROSIS OF CABG W/O ANGINA PECTO 11/24/2017 CONOR WILSON MD Ot N30.01 ACUTE CYSTITIS WITH HEMATURIA 11/24/2017 CONOR WILSON MD Ot Z79.84 GUN FITTER (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) USE OF ORAL HYPOGLYC 11/24/2017 CONOR WILSON MD Ot Z95.1 PRESENCE OF AORTOCORONARY BYPASS GRAFT 11/24/2017 CONOR WILSON MD Ot Z95.5 PRESENCE OF CORONARY ANGIOPLASTY IMPLANT 11/24/2017 CONOR WILSON MD Ot E11.9 TYPE 2 DIABETES MELLITUS WITHOUT COMPLIC 11/24/2017 CONOR WILSON MD Ot F02.80 DEMENTIA IN OTH DISEASES CLASSD ELSWHR W 11/24/2017 CONOR WILSON MD Ot G30.9 ALZHEIMER'S DISEASE, UNSPECIFIED 11/24/2017 CONOR WILSON MD Ot I10 ESSENTIAL (PRIMARY) HYPERTENSION 11/24/2017 CONOR WILSON MD Ot I25.810 ATHEROSCLEROSIS OF CABG W/O ANGINA PECTO 11/24/2017 CONOR WILSON MD Ot N30.01 ACUTE CYSTITIS WITH HEMATURIA 11/24/2017 CONOR WILSON MD Ot Z79.84 DETENTION (CURRENT) USE OF ORAL HYPOGLYC 11/24/2017 CONOR WILSON MD Ot Z95.1 PRESENCE OF AORTOCORONARY BYPASS GRAFT 11/24/2017 CONOR WILSON MD Ot Z95.5 PRESENCE OF CORONARY ANGIOPLASTY IMPLANT 11/28/2017 CONOR WILSON MD Ot E11.9 TYPE 2 DIABETES MELLITUS WITHOUT COMPLIC 11/28/2017 CONOR WILSON MD Ot F02.80 DEMENTIA IN OTH DISEASES CLASSD ELSWHR W 11/28/2017 CONOR WILSON MD Ot G30.9 ALZHEIMER'S DISEASE, UNSPECIFIED 11/28/2017 CONOR WILSON MD Ot I10 ESSENTIAL (PRIMARY) HYPERTENSION 11/28/2017 CONOR WILSON MD Ot I25.810 ATHEROSCLEROSIS OF CABG W/O ANGINA PECTO 11/28/2017 CONOR WILSON MD Ot N30.01 ACUTE CYSTITIS WITH HEMATURIA 11/28/2017 CONOR WILSON MD Ot Z79.84 DETENTION (CURRENT) USE OF ORAL HYPOGLYC 11/28/2017 CONOR WILSON MD Ot Z95.1 PRESENCE OF AORTOCORONARY BYPASS GRAFT 11/28/2017 CONOR WILSON MD Ot Z95.5 PRESENCE OF CORONARY ANGIOPLASTY IMPLANT 11/28/2017 CONOR WILSON MD Ot 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 11/28/2017 CONOR WILSON MD Ot E11.9 TYPE 2 DIABETES MELLITUS WITHOUT COMPLIC 11/28/2017 CONOR WILSON MD Ot F02.80 DEMENTIA IN OTH DISEASES CLASSD ELSWHR W 11/28/2017 CONOR WILSON MD Ot F02.81 DEMENTIA IN OTH DISEASES CLASSD ELSWHR W 11/28/2017 CONOR WILSON MD, Ot G30.9 ALZHEIMER'S DISEASE, UNSPECIFIED 11/28/2017 CONOR WILSON MD, Ot I10 ESSENTIAL (PRIMARY) HYPERTENSION 11/28/2017 CONOR WILSON MD, Ot I25.810 ATHEROSCLEROSIS OF CABG W/O ANGINA PECTO 11/28/2017 CONOR WILSON MD, Ot N30.01 ACUTE CYSTITIS WITH HEMATURIA 11/28/2017 CONOR WILSON MD, Ot N40.1 BENIGN PROSTATIC HYPERPLASIA WITH LOWER 11/28/2017 CONOR WILSON MD, Ot R33.8 OTHER RETENTION OF URINE 11/28/2017 CONOR WILSON MD, Ot Z79.84 DETENTION (CURRENT) USE OF ORAL HYPOGLYC 11/28/2017 CONOR WILSON MD, Ot Z95.1 PRESENCE OF AORTOCORONARY BYPASS GRAFT 11/28/2017 CONOR WILSON MD, Ot Z95.5 PRESENCE OF CORONARY ANGIOPLASTY IMPLANT 11/29/2017 Tien Ricci W 307.9 OTHER AND UNSPECIFIED SPECIAL SYMPTOMS OR SYNDROMES, NOT ELSEWHERE CLASSIFIED 11/29/2017 Tien Ricci W R45.1 RESTLESSNESS AND AGITATION Procedures Code Description Performed By Performed On [id number] INSPECTION OF BLADDER, ENDO 11/20/2017 [id number] EXCISION OF BLADDER, ENDO , DIAGN 11/21/2017 Results Test Result Range Capillary blood glucose [...] urinalysis with reflex to culture YES NRG Bacterial urine culture - 11/08/17 11:20 Bacterial urine culture NG NRG Complete urinalysis with reflex to culture - 11/16/17 15:45 Urine color determination RED NRG Urine clarity determination BLOODY NRG Urine pH measurement by test strip 8 5-9 Specific gravity of urine by test strip 1.010 1.016- 1.022 Urine protein assay by test strip, semi-quantitative 4+ NEGATIVE Urine glucose detection by automated test strip NEGATIVE NEGATIVE Erythrocytes detection in urine sediment by light microscopy 5+ NEGATIVE Urine ketones detection by automated test strip 1+ NEGATIVE Urine nitrite detection by test strip NEGATIVE NEGATIVE Urine total bilirubin detection by test strip NEGATIVE NEGATIVE Urine urobilinogen measurement by automated test strip (mass/volume) NORMAL NORMAL Urine leukocyte esterase detection by dipstick 3+ NEGATIVE Automated urine sediment erythrocyte count by microscopy (number/high power field) [HPF] NRG Automated urine sediment leukocyte count by microscopy (number/high power field ) [HPF] NRG Bacteria detection in urine sediment by light microscopy FEW NRG Squamous epithelial cells detection in urine sediment by light microscopy >50 NRG Crystals detection in urine sediment by light microscopy PRESENT NRG Casts detection in urine sediment by light microscopy NONE NRG Mucus detection in urine sediment by light microscopy SMALL NRG Complete urinalysis with reflex to culture YES NRG Calcium oxalate crystals detection in urine sediment by light microscopy FEW NRG Bacterial urine culture - 11/16/17 15:45 Bacterial urine culture NG NRG PT panel in platelet poor plasma by coagulation assay - 11/16/17 16:10 Prothrombin time (PT) in platelet poor plasma by coagulation assay 13.3 s 12.2-14.7 INR in platelet poor plasma or blood by coagulation assay 1.0 0.8-1.4 Activated partial thromboplastin time (aPTT) in platelet poor plasma bycoagulation assay - 11/16/17 16:10 Activated partial thromboplastin time (aPTT) in platelet poor plasma bycoagulation assay 27 s 24-35 Comprehensive metabolic panel - 11/16/17 16:10 Serum or plasma sodium measurement (moles/volume) 141 mmol/L 135-145 Serum or plasma potassium measurement (moles/volume) 4.4 mmol/L 3.6-5.0 Serum or plasma chloride measurement (moles/volume) 104 mmol/L 98-107 Carbon dioxide 28 mmol/L 21-32 Serum or plasma anion gap determination (moles/volume) 9 mmol/L 5-14 Serum or plasma urea nitrogen measurement (mass/volume) 33 mg/dL 7-18 Serum or plasma creatinine measurement (mass/volume) 1.71 mg/dL 0.60-1.30 Serum or plasma urea nitrogen/creatinine mass ratio 19 NRG Serum or plasma creatinine measurement with calculation of estimated glomerular filtration rate 39 NRG Serum or plasma glucose measurement (mass/volume) 131 mg/dL 70-105 Serum or plasma calcium measurement (mass/volume) 10.4 mg/dL 8.5-10.1 Serum or plasma total bilirubin measurement (mass/volume) 0.9 mg/dL 0.1-1.0 Serum or plasma alkaline phosphatase measurement (enzymatic activity/volume) 34 U/L 40-136 Serum or plasma aspartate aminotransferase measurement (enzymatic activity/ volume) 20 U/L 5-34 Serum or plasma alanine aminotransferase measurement (enzymatic activity/volume ) 15 U/L 0-55 Serum or plasma protein measurement (mass/volume) 7.3 g/dL 6.4-8.2 Serum or plasma albumin measurement (mass/volume) 4.2 g/dL 3.2-4.5 Serum or plasma thyrotropin measurement by detection limit <=0.05 miu/l (units/ volume) - 11/16/17 16:10 Serum or plasma thyrotropin measurement by detection limit <=0.05 miu/l (units/ volume) 0.59 u[iU]/mL 0.35-4.94 Bacterial blood culture - 11/16/17 16:10 Bacterial blood culture NG NR Blood lactic acid measurement (moles/volume) - 11/16/17 16:16 Blood lactic acid measurement (moles/volume) 1.16 mmol/L 0.50-2.00 Bacterial blood culture - 11/16/17 16:18 Bacterial blood culture NG NR Complete blood count (CBC) with automated white blood cell (WBC) differential - 11/17/17 05:38 Blood leukocytes automated count (number/volume) 8.5 10*3/uL 4.3-11.0 Blood erythrocytes automated count (number/volume) 4.03 10*6/uL 4.35-5.85 Venous blood hemoglobin measurement (mass/volume) 12.2 g/dL 13.3-17.7 Blood hematocrit (volume fraction) 37 % 40-54 Automated erythrocyte mean corpuscular volume 93 [foz_us] 80-99 Automated erythrocyte mean corpuscular hemoglobin (mass per erythrocyte) 30 pg 25-34 Automated erythrocyte mean corpuscular hemoglobin concentration measurement ( mass/volume) 33 g/dL 32-36 Automated erythrocyte distribution width ratio 13.5 % 10.0-14.5 Automated blood platelet count (count/volume) 222 10*3/uL 130-400 Automated blood platelet mean volume measurement 9.3 [foz_us] 7.4-10.4 Automated blood neutrophils/100 leukocytes 73 % 42-75 Automated blood lymphocytes/100 leukocytes 17 % 12-44 Blood monocytes/100 leukocytes 9 % 0-12 Automated blood eosinophils/100 leukocytes 2 % 0-10 Automated blood basophils/100 leukocytes 0 % 0-10 Blood neutrophils automated count (number/volume) 6.2 10*3 1.8-7.8 Blood lymphocytes automated count (number/volume) 1.4 10*3 1.0-4.0 Blood monocytes automated count (number/volume) 0.7 10*3 0.0-1.0 Automated eosinophil count 0.1 10*3/uL 0.0-0.3 Automated blood basophil count (count/volume) 0.0 10*3/uL 0.0-0.1 Whole blood basic metabolic panel - 11/17/17 05:38 Serum or plasma sodium measurement (moles/volume) 140 mmol/L 135-145 Serum or plasma potassium measurement (moles/volume) 4.3 mmol/L 3.6-5.0 Serum or plasma chloride measurement (moles/volume) 108 mmol/L 98-107 Carbon dioxide 25 mmol/L 21-32 Serum or plasma anion gap determination (moles/volume) 7 mmol/L 5-14 Serum or plasma urea nitrogen measurement (mass/volume) 25 mg/dL 7-18 Serum or plasma creatinine measurement (mass/volume) 1.18 mg/dL 0.60-1.30 Serum or plasma urea nitrogen/creatinine mass ratio 21 NRG Serum or plasma creatinine measurement with calculation of estimated glomerular filtration rate 60 NRG Serum or plasma glucose measurement (mass/volume) 106 mg/dL 70-105 Serum or plasma calcium measurement (mass/volume) 9.6 mg/dL 8.5-10.1 Complete blood count (CBC) with automated white blood cell (WBC) differential - 11/18/17 06:06 Blood leukocytes automated count (number/volume) 9.9 10*3/uL 4.3-11.0 Blood erythrocytes automated count (number/volume) 4.07 10*6/uL 4.35-5.85 Venous blood hemoglobin measurement (mass/volume) 12.1 g/dL 13.3-17.7 Blood hematocrit (volume fraction) 37 % 40-54 Automated erythrocyte mean corpuscular volume 91 [foz_us] 80-99 Automated erythrocyte mean corpuscular hemoglobin (mass per erythrocyte) 30 pg 25-34 Automated erythrocyte mean corpuscular hemoglobin concentration measurement ( mass/volume) 33 g/dL 32-36 Automated erythrocyte distribution width ratio 13.5 % 10.0-14.5 Automated blood platelet count (count/volume) 220 10*3/uL 130-400 Automated blood platelet mean volume measurement 9.5 [foz_us] 7.4-10.4 Automated blood neutrophils/100 leukocytes 78 % 42-75 Automated blood lymphocytes/100 leukocytes 13 % 12-44 Blood monocytes/100 leukocytes 7 % 0-12 Automated blood eosinophils/100 leukocytes 2 % 0-10 Automated blood basophils/100 leukocytes 0 % 0-10 Blood neutrophils automated count (number/volume) 7.7 10*3 1.8-7.8 Blood lymphocytes automated count (number/volume) 1.3 10*3 1.0-4.0 Blood monocytes automated count (number/volume) 0.7 10*3 0.0-1.0 Automated eosinophil count 0.2 10*3/uL 0.0-0.3 Automated blood basophil count (count/volume) 0.0 10*3/uL 0.0-0.1 Methicillin resistant Staphylococcus aureus (MRSA) screening culture - 13:27 Methicillin resistant Staphylococcus aureus (MRSA) screening culture NEG NRG Blood type T Indirect antibody screen panel - 11/21/17 05:21 ABO+Rh group ON NRG Transfusion band number [id number] NR Blood group antibody screen NEGATIVE NRG Complete blood count (CBC) with automated white blood cell (WBC) differential - 11/22/17 05:48 Blood leukocytes automated count (number/volume) 10.1 10*3/uL 4.3-11.0 Blood erythrocytes automated count (number/volume) 3.72 10*6/uL 4.35-5.85 Venous blood hemoglobin measurement (mass/volume) 11.1 g/dL 13.3-17.7 Blood hematocrit (volume fraction) 34 % 40-54 Automated erythrocyte mean corpuscular volume 91 [foz_us] 80-99 Automated erythrocyte mean corpuscular hemoglobin (mass per erythrocyte) 30 pg 25-34 Automated erythrocyte mean corpuscular hemoglobin concentration measurement ( mass/volume) 33 g/dL 32-36 Automated erythrocyte distribution width ratio 12.9 % 10.0-14.5 Automated blood platelet count (count/volume) 232 10*3/uL 130-400 Automated blood platelet mean volume measurement 8.9 [foz_us] 7.4-10.4 Automated blood neutrophils/100 leukocytes 81 % 42-75 Automated blood lymphocytes/100 leukocytes 9 % 12-44 Blood monocytes/100 leukocytes 7 % 0-12 Automated blood eosinophils/100 leukocytes 2 % 0-10 Automated blood basophils/100 leukocytes 0 % 0-10 Blood neutrophils automated count (number/volume) 8.2 10*3 1.8-7.8 Blood lymphocytes automated count (number/volume) 0.9 10*3 1.0-4.0 Blood monocytes automated count (number/volume) 0.7 10*3 0.0-1.0 Automated eosinophil count 0.2 10*3/uL 0.0-0.3 Automated blood basophil count (count/volume) 0.0 10*3/uL 0.0-0.1 Comprehensive metabolic panel - 11/22/17 05:48 Serum or plasma sodium measurement (moles/volume) 139 mmol/L 135-145 Serum or plasma potassium measurement (moles/volume) 3.8 mmol/L 3.6-5.0 Serum or plasma chloride measurement (moles/volume) 107 mmol/L 98-107 Carbon dioxide 25 mmol/L 21-32 Serum or plasma anion gap determination (moles/volume) 7 mmol/L 5-14 Serum or plasma urea nitrogen measurement (mass/volume) 18 mg/dL 7-18 Serum or plasma creatinine measurement (mass/volume) 0.77 mg/dL 0.60-1.30 Serum or plasma urea nitrogen/creatinine mass ratio 23 NRG Serum or plasma creatinine measurement with calculation of estimated glomerular filtration rate > NRG Serum or plasma glucose measurement (mass/volume) 123 mg/dL 70-105 Serum or plasma calcium measurement (mass/volume) 8.8 mg/dL 8.5-10.1 Serum or plasma total bilirubin measurement (mass/volume) 0.8 mg/dL 0.1-1.0 Serum or plasma alkaline phosphatase measurement (enzymatic activity/volume) 28 U/L 40-136 Serum or plasma aspartate aminotransferase measurement (enzymatic activity/ volume) 12 U/L 5-34 Serum or plasma alanine aminotransferase measurement (enzymatic activity/volume ) 10 U/L 0-55 Serum or plasma protein measurement (mass/volume) 5.4 g/dL 6.4-8.2 Serum or plasma albumin measurement (mass/volume) 3.1 g/dL 3.2-4.5 MRSA Screen - 11/29/17 00:06 FINAL CULTURE RESULTS MRSA POSITIVE Nasal Culture MEDIA PLATED Setup at 00:22 on 11/29/2017 Folate - 11/29/17 00:06 Folate 13.90 ng/mL 7.00-31.40 Vitamin D, 25 OH - 11/29/17 00:06 Vitamin D, 25 OH 31.40 ng/mL 25.00-100.00 Free T4 - 11/29/17 00:06 Free T4 1.00 ng/dL 0.81-1.61 Rapid Drug Screen + ETOH,Medical - 11/29/17 01:26 Amphetamine NEGATIVE NEGATIVE Barbiturates NEGATIVE NEGATIVE Benzodiazepines POSITIVE NEGATIVE Cocaine NEGATIVE NEGATIVE Ethanol, Urine <10.00 mg/dL 20.00-80.00 Marijuana NEGATIVE NEGATIVE Methylenedioxymethamphetamine NEGATIVE NEGATIVE Opiates NEGATIVE NEGATIVE Oxycodone NEGATIVE NEGATIVE Phencyclidine NEGATIVE NEGATIVE Propoxyphene NEGATIVE NEGATIVE Tricyclic Antidepressant NEGATIVE NEGATIVE Urinalysis - 11/29/17 01:26 Icotest N/A Negative Urine Volume Urine Volume Sufficient (10mL) Urine Yeast No Yeast present Urine-Appearance Slightly Cloudy Clear Urine-Bacteria 1+ Urine-Bilirubin Negative Negative Urine-Blood 3+ Negative Urine-Color Yellow Colorless-Lt. Yellow Urine-Epithelial Cells 0-5/HPF Urine-Glucose Negative Negative Urine-Ketones Negative Negative Urine-Leukocytes 1+ Negative Urine-Mucus 1+ Urine-Nitrite Negative Negative Urine-Other Culture to follow Urine-pH 8.5 5-8.5 Urine-Protein 2+ Negative Urine-RBC 20-40/HPF Urine-Specific [place] 1.025 1.000-1.030 Urine-WBC 20-40/HPF Urobilinogen 0.2 0.2-1.0 Urine Culture - 11/29/17 01:45 PRELIM CULTURE RESULTS No Growth 24 hours FINAL CULTURE RESULTS No Growth 48 hours MEDIA PLATED Setup at 01:48 on 11/29/2017 CULTURE SOURCE CATHETER Hemoglobin A1C - 11/29/17 04:47 % A1C 6.10 % 5.40-6.60 AvGlu 140 mg/dL 70-110 Encounters ACCT No. Visit Date/Time Discharge Status Pt. 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[employer] [facility] ER AMS [id number] 11/06/2017 07:51:00 11/06/2017 14:10:00 DIS Outpatient SRAVAN BRAVO DO [facility] LEFT INGUINAL HERNIA [id number] 11/02/2017 06:05:00 11/02/2017 16:24:00 DIS Outpatient SRAVAN BRAVO DO [facility] PREOP LEFT INGUINAL HERNIA [id number] 08/24/2017 10:14:00 08/24/2017 23:59:59 CLS Preadmit DAVID SALINAS MD [facility] RAD MEMORY LOSS,WEIGHT LOSS [id number] 04/28/2017 08:43:00 04/28/2017 23:59:59 CLS Outpatient DAVID SALINAS MD [facility] ENDO ANEMIA; POSSIBLE UPPER GI BLEED [id number] 04/27/2017 13:04:00 04/27/2017 23:59:59 CLS Outpatient DAVID SALINAS MD [facility] PREOP ANEMIA; POSSIBLE UPPER GI BLEED [id number] 09/18/2013 09:13:00 09/18/2013 23:59:59 CLS Outpatient DAVID SALINAS MD [facility] LAB ASCAD WITH CP [id number] 12/12/2017 06:05:00 ACT Outpatient MARQUES PAULSON MD [facility] BLADDER CANCER,BPH,RETENTION [id number] 12/11/2017 10:03:00 ACT Outpatient MARQUES PAULSON MD [facility] PREOP BLADDER CANCER, BPH, RETENTION [id number] 11/29/2017 01:46:00 Document Registration [id number] 10/25/2017 08:00:00 10/25/2017 23:59:59 [facility] Outpatient David Salinas [facility] [id number] 11/29/2017 01:46:00 12/05/2017 09:30:00 DIS Inpatient Radhames [facility] [id number] 11/29/2017 01:45:47 Document Registration
[2017-12-12] MEDS ORDERED: cefTRIAXone INJECTION 1,000 MG in NS (IVPB) 50 ML IV ONE (06:15)
[2017-12-12] MEDS: LACTATED RINGERS 1,000 ML IV PRN ×2 (06:20→08:36)
[2017-12-12 06:40] VITALS: BP 109/55
[2017-12-12] MEDS ORDERED: cefTRIAXone 1 GM (ROCEPHIN) VIAL ONE (06:44)
[2017-12-12] MEDS ORDERED: NS (IVPB) 50 ML ONE (06:44)
[2017-12-12 06:52] LABS: BASOPHILS # (AUTO) 0.1 10^3/uL (0.0-0.1); BASOPHILS % (AUTO) 1 % (0-10); EOSINOPHILS # (AUTO) 0.3 10^3/uL (0.0-0.3); EOSINOPHILS % (AUTO) 4 % (0-10); HEMATOCRIT 31 % (40-54); HEMOGLOBIN 9.9 G/DL (13.3-17.7); LYMPHOCYTES # (AUTO) 1.2 X 10^3 (1.0-4.0); LYMPHOCYTES % (AUTO) 19 % (12-44); MEAN CORPUSCULAR HEMOGLOBIN 30 PG (25-34); MEAN CORPUSCULAR HGB CONC 32 G/DL (32-36); MEAN CORPUSCULAR VOLUME 93 FL (80-99); MEAN PLATELET VOLUME 8.7 FL (7.4-10.4); MONOCYTES # (AUTO) 0.7 X 10^3 (0.0-1.0); MONOCYTES % (AUTO) 11 % (0-12); NEUTROPHILS # (AUTO) 4.4 X 10^3 (1.8-7.8); NEUTROPHILS % (AUTO) 66 % (42-75); PLATELET COUNT 247 10^3/uL (130-400); RED BLOOD COUNT 3.33 10^6/uL (4.35-5.85); RED CELL DISTRIBUTION WIDTH 13.8 % (10.0-14.5); WHITE BLOOD COUNT 6.6 10^3/uL (4.3-11.0)
--- NOTE | 2017-12-12 06:55 | Progress Note-Pre Operative ---
Pre-Operative Progress Note H&P Reviewed The H&P was reviewed, patient examined and no changes noted. Date Seen by Provider: December 12, 2017 Time Seen by Provider: 06:55 Date H&P Reviewed: December 12, 2017 Time H&P Reviewed: 06:55 Pre-Operative Diagnosis: 1. CA BLADDER 2.BPH, NEUROGENIC BLADDER AND RETENTION MARQUES PAULSON MD December 12, 2017 6:55 am
[2017-12-12 07:07] LABS: BUN/CREATININE RATIO 10; CALCIUM 8.7 MG/DL (8.5-10.1); CARBON DIOXIDE 24 MMOL/L (21-32); CHLORIDE 109 MMOL/L (98-107); CREATININE SERUM 0.84 MG/DL (0.60-1.30); GFR ESTIMATED > 60; GLUCOSE 119 MG/DL (70-105); POTASSIUM 4.4 MMOL/L (3.6-5.0); SODIUM 141 MMOL/L (135-145)
[2017-12-12] MEDS ORDERED: LACT20SO2 PO (07:51)
[2017-12-12] MEDS ORDERED: BUPIVACAINE SPINAL 0.75% (SENSORCAINE) 2 ML AMP ONE (09:39)
[2017-12-12] MEDS ORDERED: PROPOFOL INJECTION 50 ML IV ONE (09:41)
[2017-12-12] MEDS ORDERED: ONDANSETRON 4 MG/2 ML (SDV) Z0FRAN ONE (09:41)
[2017-12-12] MEDS ORDERED: fentaNYL INJECTION 100 MCG/2 ML AMP ONE (09:41)
[2017-12-12] MEDS ORDERED: LIDOCAINE PF 2% 5 ML (XYLOCAINE) VIAL ONE (11:24)
[2017-12-12] MEDS ORDERED: LACTATED RINGERS 1,000 ML IV SCH (11:40)
--- NOTE | 2017-12-12 11:40 | Progress Note-Post Operative ---
Post-Operative Progess Note Surgeon (s)/Pearl Digger (s) Surgeon MARQUES PAULSON MD Pearl Digger: N/A Pre-Operative Diagnosis 1. CA BLADDER 2.BPH, NEUROGENIC BLADDER AND RETENTION Post-Operative Diagnosis SAME Procedure & Operative Findings Date of Procedure 12/12/17 Procedure Performed/Findings TURBT AND TURP Anesthesia Type SPINAL Estimated Blood Loss Estimated blood loss (mL): 100CC Specimens/Packing Specimens Removed 1. BLADDER TUMOR CHIPS AND BASE 2. PROSTATE CHIPS Packing: N/A MARQUES PAULSON MD December 12, 2017 11:40 am
[2017-12-12] MEDS ORDERED: MILK OF MAGNESIA 400 MG/5 ML 30 ML UDC PO PRN (11:45)
[2017-12-12] MEDS ORDERED: BELLADONNA ALK/OPIUM (B & O) 30 MG SUPP PR PRN (11:45)
[2017-12-12] MEDS ORDERED: ZOLPIDEM 5 MG (AMBIEN) TAB PO PRN (11:45)
[2017-12-12] MEDS ORDERED: ONDANSETRON 4 MG/2 ML (SDV) Z0FRAN IVP PRN (12:00)
[2017-12-12] MEDS ORDERED: morphine INJ 10 MG/ML 1ML (SYR OR VIAL) IVP PRN (12:00)
[2017-12-12 12:45] VITALS: BP 100/66
[2017-12-12] MEDS: LACTATED RINGERS 1,000 ML IV SCH ×2 (13:35→21:12)
[2017-12-12] MEDS ORDERED: RISP0.2517 PO (15:10)
[2017-12-12] MEDS ORDERED: TAMS0.4C98 PO (15:10)
[2017-12-12] MEDS ORDERED: MIRT15TA PO (15:10)
[2017-12-12] MEDS ORDERED: MENT71OI TP (15:10)
[2017-12-12] MEDS ORDERED: SIMV40TA PO (15:10)
[2017-12-12] MEDS ORDERED: FINA5TAB6 PO (15:10)
[2017-12-12] MEDS ORDERED: MAG-10 PO (15:10)
[2017-12-12] MEDS ORDERED: RISP0.5T21 PO (15:10)
[2017-12-12 16:00] VITALS: BP 122/55
[2017-12-12] MEDS ORDERED: MAG HYDROX PO PRN (16:15)
[2017-12-12] MEDS ORDERED: SIMETH PO PRN (16:15)
[2017-12-12] MEDS ORDERED: [UNRECOGNIZED DRUG - OTHER] PO PRN (16:15)
[2017-12-12] MEDS ORDERED: AL HYDROX PO PRN (16:15)
[2017-12-12] MEDS ORDERED: ANTACID SUSP 30 ML UDC (MYLANTA) PO PRN (16:30)
[2017-12-12] MEDS: risperiDONE 0.25 MG (RisperDAL) TAB PO SCH (17:15)
[2017-12-12] MEDS: HYDROcodone/APAP 10 MG/325 MG (LORTAB) TAB PO PRN ×2 (17:16→21:15)
[2017-12-12] MEDS ORDERED: RISPERIDONE 0.5 MG PO SCH (18:00)
--- NOTE | 2017-12-12 19:28 | OPERATIVE REPORT ---
DATE OF SERVICE: 12/12/2017 PREOPERATIVE DIAGNOSES: 1. Bladder tumor. 2. Urinary retention secondary to benign prostatic hyperplasia and possible neurogenic bladder. POSTOPERATIVE DIAGNOSES: 1. Bladder tumor. 2. Urinary retention secondary to benign prostatic hyperplasia and possible neurogenic bladder. OPERATION PERFORMED: Transurethral resection of bladder tumor and transurethral resection of prostate. SURGEON: Titi Paulson MD ANESTHESIA: Spinal. COMPLICATIONS: None. DESCRIPTION OF PROCEDURE: Under satisfactory spinal anesthesia, the patient in lithotomy position, genitalia were prepped and draped in the usual sterile fashion after removing the Stevens catheter. The urethra was dilated with [place] sound to #30 Iraqi easily to accommodate a 27-Iraqi [employer] resectoscope. First I inspected the bladder. There were certain areas suspicious of tumor, difficult to differentiate from catheter cystitis, any obvious possible tumor was resected and the base cauterized. They were sent to pathology. I went ahead and proceeded with the TURP. So, I resected first circumferentially around the bladder neck, which was opened, then the roof from 11 o'clock to 1 o'clock position. Then, the lateral lobes from 11 to 6 and 1 to 6. Finally, the apical tissue. Bleeders were cauterized as the resection was proceeding. The capsule was visualized at many points as well as prostatic calculi. The prostatic chips were then evacuated and cystoscopy confirmed intact ureteric orifices and the uterine sphincter with good reflux, although it was not very easy to see the ureteric orifices because of the changes in the bladder seymour. Hemostasis was very satisfactory and the resection adequate. I removed the resectoscope, inserted a 22-Iraqi 3-way 30 mL balloon catheter, inflated the balloon to 40 mL, put it on some traction, irrigation with sterile water. The return of which was pinkish. Estimated blood loss was 100 mL, none of which was replaced. The patient tolerated the procedure and anesthesia well and was sent to recovery room in stable condition. Job ID: [id number] DocumentID: [id number] Dictated Date: 12/12/2017 11:48:57 Office Machine Servicer Apprentice Date: 12/12/2017 19:27:41 Dictated By: TITI PAULSON MD
[2017-12-12 20:00] VITALS: BP 112/53
[2017-12-12] MEDS ORDERED: SIMVASTATIN 40 MG PO SCH (21:00)
[2017-12-12] MEDS ORDERED: MIRTAZAPINE 7.5 MG PO SCH (21:00)
[2017-12-12] MEDS ORDERED: NON-FORMULARY MEDICATION 1 EA EA (Lactulose 20 GM) PO SCH (21:00)
[2017-12-12] MEDS: TAMSULOSIN 0.4 MG (FLOMAX) CAP PO SCH (21:12)
[2017-12-12] MEDS: SIMvastatin 40 MG (ZOCOR) TAB PO SCH (21:12)
[2017-12-12] MEDS: LACTULOSE SYRUP 10GM/15ML (ENULOSE) 30ML UDC PO SCH (21:12)
[2017-12-12] MEDS: DOCUSATE SODIUM 100 MG (COLACE) CAP PO SCH (21:12)
[2017-12-12] MEDS: CARVEDILOL 12.5 MG (COREG) TABLET PO SCH (21:12)
[2017-12-12] MEDS: MIRTAZAPINE 15 MG (REMERON) TAB PO SCH (21:13)
[2017-12-12] MEDS: MENTHOL/ZINC OXIDE (CALMOSEPTINE) 113 GM TUBE TP SCH (21:14)
[2017-12-13] VITALS: BP 120/62
[2017-12-13] MEDS: HYDROcodone/APAP 10 MG/325 MG (LORTAB) TAB PO PRN ×2 (04:03→21:00)
[2017-12-13] MEDS: LACTATED RINGERS 1,000 ML IV SCH ×2 (04:03→11:42)
[2017-12-13 04:30] VITALS: BP 131/68
[2017-12-13 08:00] VITALS: BP 128/71
--- NOTE | 2017-12-13 08:23 | Consultation-Hospitalist ---
HPI History of Present Illness: HPI/Chief Complaint Pt is a 77yoCM known to me from recent admission who was admitted for TURP and TURBT yesterday by Dr Cheung. He suffers from severe dementia and is unable to provide me any history. When I asked him about his surgery he stated "I didn't have any surgery." He also does not seem to understand that he is in a hospital. All other information is obtained from the records and RN interview. He was admitted yesterday and has done well postoperatively. His RN reports that his catheter has been draining clear fluid all night. Source: patient Exam Limitations: clinical condition (dementia) Date Seen 12/13/17 Attending Physician Titi Cheung MD PCP Dr Dorsey Referring Physician Skye Date of Admission Home Medications & Allergies Home Medications Reviewed patient Home Medication Reconciliation performed by pharmacy medication reconciliations diazo technician and/or nursing. Patients Allergies have been reviewed. Allergies Allergies Coded Allergies No Known Drug Allergies (Unverified02/14/11) Past Gaayfde-Dcqoxh-Xbftfk Hx Past Med/Social Hx: Reviewed Nursing Past Med/Soc Hx Patient Social History Marrital Status: Employed/Student: retired Alcohol Use: Denies Use Recreational Drug Use: No Smoking Status: Never a Smoker Recent Foreign Travel: No Contact w/other who traveled: No Recent Hopitalizations: No Recent Infectious Disease Expo: No Immunizations Up To Date Date of Pneumonia Vaccine: Oct 15, 2015 Date of Influenza Vaccine: Apr 20, 2017 Seasonal Allergies Seasonal Allergies: No Past Medical History Surgeries: CABG, Coronary Stent, Prostatectomy, Transurethral Resection (of bladder tumor) Cardiac: Coronary Artery Disease, High Cholesterol, Hypertension Neurological: Dementia Reproductive: No Endocrine: Diabetes, Non-Insulin dep Psychosocial: Violent Behavior, Depression History of Blood Disorders: No Family History Reviewed Nursing Family Hx No Pertinent Family Hx Review of Systems ROS-Unable to Obtain: Did not answer questions appropriately due to dementia Constitutional: see HPI Physical Exam Physical Exam Vital Signs Vital Signs - First Documented 12/12/17 06:40 Temp 98.1 Pulse 57 Resp 18 B/P (MAP) 109/55 (73) Pulse Ox 98 O2 Delivery Room Air Capillary Refill : General Appearance: No Apparent Distress, Thin Neck: Normal Inspection, Supple Respiratory: Lungs Clear, No Respiratory Distress Cardiovascular: Regular Rate, Rhythm, No Murmur Gastrointestinal: Normal Bowel Sounds, Non Tender, Soft Genital/Rectal: Other (rasmussen in place) Extremity: No Calf Tenderness, No Pedal Edema Neurologic/Psychiatric: Alert, Disoriented Skin: Normal Color, Warm/Dry Results Results/Procedures Labs Laboratory Tests 12/12/17 06:36 Patient resulted labs reviewed. 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
--- NOTE | 2017-12-13 08:34 | Progress Note-Urology ---
Progress Note-Urology Progress Notes/Assess & Plan Progress/Assessment & Plan DOING AND FEELING VERY WELL. URINE CLEAR. PLAN DC CASTILLO AND IV, IVF AND IV MEDS POST LEVAQUIN DOSE Final Diagnosis BLADDER TUMOR, BPH, NEUROGENIC BLADDER AND RETENTION MARQUES PAULSON MD December 13, 2017 8:34 am
[2017-12-13] MEDS ORDERED: RISPERIDONE 0.25 MG PO SCH (09:00)
[2017-12-13] MEDS ORDERED: NON-FORMULARY MEDICATION 1 EA EA (Finasteride 5 MG) PO SCH (09:00)
[2017-12-13] MEDS ORDERED: NON-FORMULARY MEDICATION 1 EA EA (Lisinopril 5 MG) PO SCH (09:00)
[2017-12-13] MEDS: lisINopril 5 MG (PRINIVIL) TABLET PO SCH (09:48)
[2017-12-13] MEDS: CARVEDILOL 12.5 MG (COREG) TABLET PO SCH ×2 (09:48→21:00)
[2017-12-13] MEDS: risperiDONE 0.25 MG (RisperDAL) TAB PO SCH ×2 (09:48→18:06)
[2017-12-13] MEDS: FINASTERIDE (PROSCAR) 5 MG TAB PO SCH (09:48)
[2017-12-13] MEDS: LACTULOSE SYRUP 10GM/15ML (ENULOSE) 30ML UDC PO SCH ×2 (09:48→21:00)
[2017-12-13] MEDS: DOCUSATE SODIUM 100 MG (COLACE) CAP PO SCH ×2 (09:48→21:00)
[2017-12-13] MEDS: MENTHOL/ZINC OXIDE (CALMOSEPTINE) 113 GM TUBE TP SCH ×2 (09:49→21:02)
[2017-12-13] MEDS ORDERED: LEVOFLOXACIN 500 MG/100 ML IV 100 ML IV NR (11:45)
[2017-12-13 12:00] VITALS: BP 104/55
--- NOTE | 2017-12-13 13:58 | Anesthesia-General Post-Op ---
General Patient Condition Mental Status/LOC: Same as Preop Cardiovascular: Satisfactory Nausea/Vomiting: Absent Respiratory: Satisfactory Pain: Controlled Complications: Absent Post Op Complications Complications None Follow Up Care/Instructions Patient Instructions None needed. Anesthesia/Patient Condition Patient Condition Patient is doing well, no complaints, stable vital signs, no apparent adverse anesthesia problems. DIANE GALO DO December 13, 2017 13:58
[2017-12-13 16:45] VITALS: BP 119/56
[2017-12-13 20:00] VITALS: BP 118/57
[2017-12-13] MEDS: MIRTAZAPINE 15 MG (REMERON) TAB PO SCH (21:00)
[2017-12-13] MEDS: SIMvastatin 40 MG (ZOCOR) TAB PO SCH (21:00)
[2017-12-13] MEDS: TAMSULOSIN 0.4 MG (FLOMAX) CAP PO SCH (21:00)
[2017-12-14] VITALS: BP 121/58
[2017-12-14] MEDS: HYDROcodone/APAP 10 MG/325 MG (LORTAB) TAB PO PRN (03:27)
[2017-12-14 04:15] VITALS: BP 118/62
[2017-12-14 08:00] VITALS: BP 124/61
[2017-12-14] MEDS: FINASTERIDE (PROSCAR) 5 MG TAB PO SCH (09:26)
[2017-12-14] MEDS: lisINopril 5 MG (PRINIVIL) TABLET PO SCH (09:26)
[2017-12-14] MEDS: LACTULOSE SYRUP 10GM/15ML (ENULOSE) 30ML UDC PO SCH (09:26)
[2017-12-14] MEDS: DOCUSATE SODIUM 100 MG (COLACE) CAP PO SCH (09:27)
[2017-12-14] MEDS: CARVEDILOL 12.5 MG (COREG) TABLET PO SCH (09:27)
[2017-12-14] MEDS: risperiDONE 0.25 MG (RisperDAL) TAB PO SCH (09:27)
[2017-12-14] MEDS: MENTHOL/ZINC OXIDE (CALMOSEPTINE) 113 GM TUBE TP SCH (09:31)
--- NOTE | 2017-12-14 10:20 | Progress Note-Hospitalist ---
Subjective HPI/CC On Admission Date Seen by Provider: December 14, 2017 Time Seen by Provider: 10:11 Pt is a 77yoCM known to me from recent admission who was admitted for TURP and TURBT yesterday by Dr Cheung. He suffers from severe dementia and is unable to provide me any history. When I asked him about his surgery he stated "I didn't have any surgery." He also does not seem to understand that he is in a hospital. All other information is obtained from the records and RN interview. He was admitted yesterday and has done well postoperatively. His RN reports that his catheter has been draining clear fluid all night. Subjective/Events-last exam Pt is awake and in bed eating breakfast. Denies any complaints. Objective Exam Vital Signs Vital Signs Date Time Temp Pulse Resp B/P (MAP) Pulse Ox O2 Delivery O2 Flow Rate FiO2 12/14/17 08:00 98.8 71 18 124/61 (82) 96 Room Air Capillary Refill : General Appearance: No Apparent Distress, Thin Respiratory: Lungs Clear, No Respiratory Distress Cardiovascular: Regular Rate, Rhythm, No Murmur Gastrointestinal: Normal Bowel Sounds, Non Tender, Soft Neurologic/Psychiatric: Alert, Disoriented Results/Procedures Lab Patient resulted labs reviewed. Assessment/Plan Assessment and Plan Assess & Plan/Chief Complaint s/p TURBT Diagnosis/Problems Diagnosis/Problems (1) Bladder tumor Status: Acute Assessment & Plan: s/p TURBT by Dr Cheung Management per primary Necessitate regular straight caths overnight (2) Dementia Status: Chronic Assessment & Plan: Has previously had problems with aggression but resolved this admission Stable on current meds Will continue Qualifiers: Dementia type: unspecified type Dementia behavioral disturbance: without behavioral disturbance Qualified Codes: F03.90 - Unspecified dementia without behavioral disturbance (3) Non-insulin dependent type 2 diabetes mellitus Status: Chronic Assessment & Plan: Fasting BS within goal On no diabetic meds at home Trend (4) Essential (primary) hypertension Status: Chronic Assessment & Plan: BP well controlled on Lisinopril and Coreg Clinical Quality Measures DVT/VTE Risk/Contraindication: Risk Factor Score Per Nursin RFS Level Per Nursing on Admit: 2=Moderate CONOR WILSON MD December 14, 2017 10:20 am
[2017-12-14 12:00] VITALS: BP 115/58
--- NOTE | 2017-12-14 12:21 | D/C HH Face to Face Order ---
D/C Face to Face Orders Instructions for Patient Patient Instructions/FollowUp: home health to straight cath PVR daily and record amount Physician to follow Patient: LORENE Discharge Diet for Home: Regular Diet Patient Problems: POSTOP WITH RETENTION Patient Data-Allergies,Ht & Wt Patient Allergies: Coded Allergies: No Known Drug Allergies (Unverified , 02/14/11) Height (Feet): 5 Height (Inches): 6.00 Weight (Pounds): 120 Weight (Ounces): 7.0 Home Health Need/Face to Face Date of Face to Face: December 14, 2017 Clinical Findings: Other-list in note RETENTION POSTOP I have seen Pt [id number]: Yes Discharged To: Home Diagnosis/Conditions: BPH, RETENTION, AND BLADDER CANCER Patient is Homebound due to: Muscle weakness Homebound Status Due to the above stated illness, injury or surgical procedure (medical condition or diagnosis) and associated clinical findings, the patient is homebound because of his/her inability to leave home except with aid of a supportive device and/or person AND leaving the home requires a considerable and taxing effort or is medically contraindicated. Pt req the following assistanc: Aid of another person Home Health Nursing Orders Home Health Services Order: Nursing Services Home Health Infusion Therapy Line Start Date: December 12, 2017 Line Start Time: 0630 Line Type: Saline Lock Site Location: Forearm Certify Stmt I certify that this patient is under my care and that I, a nurse practitioner or a physician; a psychologist research assistant working with me, had a face to face encounter that - meets the physician face to face encounter requirements with this patient as dated. MARQUES PAULSON MD December 14, 2017 12:21 pm
--- NOTE | 2017-12-14 13:35 | Discharge Inst-Simple/Standard ---
Discharge Inst-Standard Discharge Medications New, Converted or Re-Newed RX: Transmitted to Pharmacy Patient Instructions/Follow Up Plan of Care/Instructions/FU: straight cath PVR daily and record amount Activity as Tolerated: Yes Discharge Diet: No Restrictions CONOR WILSON MD December 14, 2017 1:35 pm
[2017-12-14] MEDS ORDERED: CIPR-225 PO (14:02)
== END 2017-12-14 15:45 ==
LOC: SDC 06:05 → 4TH 12:40 → SDC 12-14 15:45
PROVIDERS: ATTEND Urology
DX: C67.9 Malignant neoplasm of bladder, unspecified (principal); C61 Malignant neoplasm of prostate; N40.1 Benign prostatic hyperplasia with lower urinary tract symptoms; R33.8 Other retention of urine; N31.9 Neuromuscular dysfunction of bladder, unspecified; I25.10 Atherosclerotic heart disease of native coronary artery without angina pectoris; I10 Essential (primary) hypertension; E11.9 Type 2 diabetes mellitus without complications; E78.00 Pure hypercholesterolemia, unspecified; F03.90 Unspecified dementia, unspecified severity, without behavioral disturbance, psychotic disturbance, mood disturbance, and anxiety; Z95.1 Presence of aortocoronary bypass graft; Z95.5 Presence of coronary angioplasty implant and graft; Z79.899 Other long term (current) drug therapy
CPT/HCPCS: 36415; 80048; 85025; 86850; 86900; 86901; 87081; 88305; 88307; 94664

== ENCOUNTER 2018-04-07 19:31 | Emergency (ER) | payer MEDICARE ==
[~2018-04-07] VITALS: Ht 175.3 cm; Wt 63.5 kg
[~2018-04-07 19:31] MED LIST changes: +CIPR-225 PO; +FINA5TAB6 PO; +LACT20SO2 PO; +MAG-10 PO; +MENT71OI TP; +METF-397 PO; -METF500T5 PO; +MIRT15TA PO; +RISP0.2517 PO; +RISP0.5T21 PO; +SIMV40TA PO
--- OUTSIDE RECORDS SUMMARY | 2018-04-07 19:36 | XMS REPORT | CCD ---
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 [id number] 2017 Unknown Family history Daughter Diagnosis Age At Onset No Known Diseases N/A Social History Social History Element Codes Description Effective Dates Number of children Unknown 4 12/18/2017 Living arrangements Unknown Fdc 12/18/[address]: 068561796 Never smoker 12/18/[address]: 564521187 Never drinks alcohol 12/18/2017 Allergies, Adverse Reactions, Alerts Substance Reaction Codes Entered Date Inactivated Date Status * NO KNOWN DRUG ALLERGIES Unknown 12/18/2017 No Inactive Date Active * NO KNOWN DRUG ALLERGIES Unknown 12/18/2017 No Inactive Date Active Past Medical History Illness Codes Condition Status Onset Date Resolved Date Dementia in other diseases classified elsewhere with behavioral disturbance ICD-9: 294.8 ICD-10: F02.81 Active 12/18/2017 Unknown Essential (primary) hypertension ICD-9: 401.1 ICD-10: I10 Active 12/18/2017 Unknown Malignant neoplasm of bladder, unspecified ICD-9: 199.1 ICD-10: C67.9 Active 12/18/2017 Unknown Onycholysis ICD-9: 703.8 ICD-10: L60.1 Active 03/15/2018 Unknown Other retention of urine ICD-9: 788.29 ICD-10: R33.8 Active 12/18/2017 Unknown Problems Condition Codes Effective Dates Condition Status Dementia in other diseases classified elsewhere with behavioral disturbance ICD-9: 294.8 ICD-10: F02.81 12/18/2017 Active Essential (primary) hypertension ICD-9: 401.1 ICD-10: I10 12/18/2017 Active Malignant neoplasm of bladder, unspecified ICD-9: 199.1 ICD-10: C67.9 12/18/2017 Active Onycholysis ICD-9: 703.8 ICD-10: L60.1 03/15/2018 Active Other retention of urine ICD-9: 788.29 ICD-10: R33.8 12/18/2017 Active Medications Medication Codes Instructions Start Date Stop Date Status Fill Instructions atorvastatin 20 mg tablet RxNorm: 858230 1 Tablet(s) PO QHS No Stop Date Active Remeron 15 mg tablet RxNorm: 966685 1 Tablet(s) PO QHS No Start Date Active Risperdal 0.25 mg tablet RxNorm: 367141 1 Tablet(s) PO daily No Start Date Active Coreg 12.5 mg tablet RxNorm: 746532 1 Tablet(s) PO BID No Start Date Active hyoscyamine 0.125 mg disintegrating tablet RxNorm: 3777052 1 Tablet(s) PO Q4H as needed No Start Date Active lisinopril 5 mg tablet RxNorm: 416480 1 Tablet(s) PO daily No Start Date Active Risperdal 0.5 mg tablet RxNorm: 170982 1 Tablet(s) PO QPM No Start Date Active at 1800 [place] 200 mg-200 mg-20 mg/5 mL oral suspension RxNorm: 255400 30 Milliliter(s ) PO Q4 PRN No Start Date Active lactulose 20 gram/30 mL oral solution RxNorm: 216646 30 Milliliter(s) PO BID No Start Date Active hyoscyamine 0.125 mg sublingual tablet RxNorm: 2547721 1 Tablet(s) SL Q4H as needed No Start Date Active tramadol 50 mg tablet RxNorm: 271880 1 Tablet(s) PO Q6 as needed No Start Date Active tamsulosin 0.4 mg capsule RxNorm: 801259 1 Capsule(s) PO QHS No Start Date Active finasteride 5 mg tablet RxNorm: 434642 1 Tablet(s) PO daily No Start Date Active Zocor 40 mg tablet RxNorm: 239312 1 Tablet(s) PO QHS No Start Date 03/14/2018 Inactive Medication Administered No Medication Administered data Immunizations No Immunization data Assessments Condition Codes Effective Dates Onycholysis ICD-10: L60.1 ICD-9: 703.8 03/15/2018 Dementia in other diseases classified elsewhere with behavioral disturbance ICD-10: F02.81 ICD-9: 294.8 03/15/2018 Essential (primary) hypertension ICD-10: I10 ICD-9: 401.1 03/15/2018 Malignant neoplasm of overlapping sites of bladder ICD-10: C67.8 ICD-9: 188.8 03/15/2018 Other retention of urine ICD-10: R33.8 ICD-9: 788.29 02/20/2018 Malignant neoplasm of bladder, unspecified ICD-10: C67.9 ICD-9: 199.1 02/20/2018 Reason For Visit Reason For Visit Effective Dates Notes memory loss 03/15/2018 hypertension 02/20/2018 dementia hypertension 12/18/2017 dementia Results No Results data Review of Systems System Result Effective Dates Constitutional recent illness 03/15/2018 Constitutional No anorexia 03/15/2018 Constitutional No night sweats 2017 Constitutional No chills 03/15/2018 Constitutional No diaphoresis 03/15/2018 Constitutional fatigue 03/15/2018 Constitutional No fever 03/15/2018 Constitutional insomnia 03/15/2018 Constitutional No malaise 03/15/2018 Eyes No eye discharge 03/15/2018 Eyes No eye erythema 03/15/2018 Ears/Nose/Throat/Neck No dizziness 2017 Ears/Nose/Throat/Neck No headache 2017 Cardiovascular No chest pain/pressure Respiratory No cough 03/15/2018 Gastrointestinal No abdominal pain 2017 Gastrointestinal No constipation 2017 Gastrointestinal No diarrhea 03/15/2018 Genitourinary/Nephrology No dysuria 03/15 Genitourinary/Nephrology urinary retention/hesitancy 03/15/2018 Musculoskeletal No joint complaint 2017 Dermatologic No rash 03/15/2018 Neurologic memory loss 03/15/2018 Psychiatric No anxiety 03/15/2018 Psychiatric disturbances of memory 2017 Psychiatric disturbances of thinking Constitutional recent illness 02/20/2018 Constitutional No anorexia 02/20/2018 Constitutional No night sweats 2017 Constitutional No chills 02/20/2018 Constitutional No diaphoresis 02/20/2018 Constitutional fatigue 02/20/2018 Constitutional No fever 02/20/2018 Constitutional No insomnia 02/20/2018 Constitutional No malaise 02/20/2018 Eyes No eye discharge 02/20/2018 Eyes No eye erythema 02/20/2018 Ears/Nose/Throat/Neck No dizziness 2017 Ears/Nose/Throat/Neck No headache 2017 Cardiovascular No chest pain/pressure Respiratory No cough 02/20/2018 Gastrointestinal No abdominal pain 2017 Gastrointestinal No constipation 2017 Gastrointestinal No diarrhea 02/20/2018 Genitourinary/Nephrology No dysuria 02/20 Genitourinary/Nephrology urinary retention/hesitancy 02/20/2018 Musculoskeletal No joint complaint 2017 Dermatologic No rash 02/20/2018 Neurologic memory loss 02/20/2018 Psychiatric No anxiety 02/20/2018 Psychiatric disturbances of memory 2017 Psychiatric disturbances of thinking Constitutional No recent illness 2017 Constitutional No anorexia 12/18/2017 Constitutional No night sweats 2017 Constitutional No chills 12/18/2017 Constitutional No diaphoresis 12/18/2017 Constitutional No fatigue 12/18/2017 Constitutional No fever 12/18/2017 Constitutional No insomnia 12/18/2017 Constitutional No malaise 12/18/2017 Constitutional No weight loss 12/18/2017 Constitutional No weight gain 12/18/2017 Endocrine No dry or coarse skin 2017 Hematologic/Lymphatic No abnormal bleeding and bruising 12/18/2017 Psychiatric No anxiety 12/18/2017 Psychiatric disturbances of memory 2017 Psychiatric disturbances of thinking Psychiatric No suicidality 12/18/2017 Psychiatric No hallucination 12/18/2017 Neurologic memory loss 12/18/2017 Dermatologic No rash 12/18/2017 Musculoskeletal No joint complaint 2017 Genitourinary/Nephrology No dysuria 12/18 Genitourinary/Nephrology urinary retention/hesitancy 12/18/2017 Gastrointestinal No abdominal pain 2017 Gastrointestinal No constipation 2017 Gastrointestinal No diarrhea 12/18/2017 Respiratory No cough 12/18/2017 Cardiovascular No chest pain/pressure Ears/Nose/Throat/Neck No dizziness 2017 Ears/Nose/Throat/Neck No headache 2017 Eyes No eye discharge 12/18/2017 Eyes No eye erythema 12/18/2017 Physical Exam Exam Name System Name Item Name Status Result Effective Dates Notes Full Exam - General 1994 Constitutional general appearance Overall: well developed 03/15/2018 None Full Exam - General 1994 Constitutional general appearance Overall: in no acute distress 03/15/2018 None Full Exam - General 1994 Constitutional general appearance Overall: well nourished 03/15/2018 None Full Exam - General 1994 Eyes conjunctiva /eyelids Overall: conjunctiva clear 03/15/2018 None Full Exam - General 1994 Eyes pupils and irises Overall: pupils equal, round, reactive to light and accomodation 03/15/2018 None Full Exam - General 1994 Ears/Nose/Throat otoscopic exam Overall: external auditory canals clear 03/15/2018 None Full Exam - General 1994 Ears/Nose/Throat otoscopic exam Overall: tympanic membranes clear 03/15/2018 None Full Exam - General 1994 Ears/Nose/Throat oral cavity/pharynx/larynx Overall: oral mucosa clear 03/15/2018 None Full Exam - General 1994 Respiratory auscultation Overall: breath sounds clear bilaterally 03/15/2018 None Full Exam - General 1994 Respiratory respiratory effort/rhythm Overall: no retractions 03/15/2018 None Full Exam - General 1994 Respiratory respiratory effort/rhythm Overall: normal rate 03/15/2018 None Full Exam - General 1994 Cardiovascular auscultation of heart Overall: regular rate 03/15/2018 None Full Exam - General 1994 Cardiovascular auscultation of heart Overall: normal heart sounds 03/15/2018 None Full Exam - General 1994 Cardiovascular auscultation of heart Overall: no murmurs 03/15/2018 None Full Exam - General 1994 Abdomen abdominal exam Overall: no tenderness 03/15/2018 None Full Exam - General 1994 Abdomen abdominal exam Overall: normal bowel sounds 03/15/2018 None Full Exam - General 1994 Lymphatic neck nodes Overall: anterior cervical chain benign 03/15/2018 None Full Exam - General 1994 Lymphatic neck nodes Overall: posterior cervical chain benign 03/15/2018 None Full Exam - General 1994 Musculoskeletal gait and station Overall: normal gait 03/15/2018 None Full Exam - General 1994 Musculoskeletal gait and station Overall: normal station 03/15/2018 None Full Exam - General 1994 Neurologic cranial nerves Overall: crainial nerves 2 - 12 grossly intact 03/15/2018 None Full Exam - General 1994 Psychiatric orientation/consciousness Oriented to person: yes 03/15/2018 None Full Exam - General 1994 Psychiatric orientation/consciousness Oriented to place: no 03/15/2018 None Full Exam - General 1994 Psychiatric orientation/consciousness Oriented to time: no 03/15/2018 None Full Exam - General 1994 Psychiatric orientation/consciousness Level of consciousness: alert 03/15/2018 None Full Exam - General 1994 Psychiatric behavior/psychomotor activity Overall: no tics, normal psychomotor activity 03/15/2018 None Full Exam - General 1994 Psychiatric mood and affect Mood: flat 03/15/2018 None Full Exam - General 1994 Psychiatric mood and affect Affect: mood congruent 03/15/2018 None Full Exam - General 1994 Psychiatric mood and affect Appropriateness: inappropriate emotional responses 03/15/2018 None Full Exam - General 1994 Psychiatric appearance Overall: well-groomed, good eye contact 03/15/2018 None Full Exam - General 1994 Psychiatric speech Overall: normal quality, no aphasia 03/15/2018 None Full Exam - General 1994 Integument inspection of skin Location: right foot 03/15/2018 great toe with onycholysis Full Exam - General 1994 Constitutional general appearance Overall: well developed 02/20/2018 None Full Exam - General 1994 Constitutional general appearance Overall: in no acute distress 02/20/2018 None Full Exam - General 1994 Constitutional general appearance Overall: well nourished 02/20/2018 None Full Exam - General 1994 Eyes conjunctiva /eyelids Overall: conjunctiva clear 02/20/2018 None Full Exam - General 1994 Eyes pupils and irises Overall: pupils equal, round, reactive to light and accomodation 02/20/2018 None Full Exam - General 1994 Ears/Nose/Throat otoscopic exam Overall: external auditory canals clear 02/20/2018 None Full Exam - General 1994 Ears/Nose/Throat otoscopic exam Overall: tympanic membranes clear 02/20/2018 None Full Exam - General 1994 Ears/Nose/Throat oral cavity/pharynx/larynx Overall: oral mucosa clear 02/20/2018 None Full Exam - General 1994 Respiratory auscultation Overall: breath sounds clear bilaterally 02/20/2018 None Full Exam - General 1994 Respiratory respiratory effort/rhythm Overall: no retractions 02/20/2018 None Full Exam - General 1994 Respiratory respiratory effort/rhythm Overall: normal rate 02/20/2018 None Full Exam - General 1994 Cardiovascular auscultation of heart Overall: regular rate 02/20/2018 None Full Exam - General 1994 Cardiovascular auscultation of heart Overall: normal heart sounds 02/20/2018 None Full Exam - General 1994 Cardiovascular auscultation of heart Overall: no murmurs 02/20/2018 None Full Exam - General 1994 Abdomen abdominal exam Overall: no tenderness 02/20/2018 None Full Exam - General 1994 Abdomen abdominal exam Overall: normal bowel sounds 02/20/2018 None Full Exam - General 1994 Lymphatic neck nodes Overall: anterior cervical chain benign 02/20/2018 None Full Exam - General 1994 Lymphatic neck nodes Overall: posterior cervical chain benign 02/20/2018 None Full Exam - General 1994 Musculoskeletal gait and station Overall: normal gait 02/20/2018 None Full Exam - General 1994 Musculoskeletal gait and station Overall: normal station 02/20/2018 None Full Exam - General 1994 Neurologic cranial nerves Overall: crainial nerves 2 - 12 grossly intact 02/20/2018 None Full Exam - General 1994 Psychiatric orientation/consciousness Oriented to person: yes 02/20/2018 None Full Exam - General 1994 Psychiatric orientation/consciousness Oriented to place: no 02/20/2018 None Full Exam - General 1994 Psychiatric orientation/consciousness Oriented to time: no 02/20/2018 None Full Exam - General 1994 Psychiatric orientation/consciousness Level of consciousness: alert 02/20/2018 None Full Exam - General 1994 Psychiatric behavior/psychomotor activity Overall: no tics, normal psychomotor activity 02/20/2018 None Full Exam - General 1994 Psychiatric mood and affect Mood: flat 02/20/2018 None Full Exam - General 1994 Psychiatric mood and affect Affect: mood congruent 02/20/2018 None Full Exam - General 1994 Psychiatric mood and affect Appropriateness: inappropriate emotional responses 02/20/2018 None Full Exam - General 1994 Psychiatric appearance Overall: well-groomed, good eye contact 02/20/2018 None Full Exam - General 1994 Psychiatric speech Overall: normal quality, no aphasia 02/20/2018 None Full Exam - General 1994 Constitutional general appearance Overall: well nourished 12/18/2017 None Full Exam - General 1994 Constitutional general appearance Overall: in no acute distress 12/18/2017 None Full Exam - General 1994 Constitutional general appearance Overall: well developed 12/18/2017 None Full Exam - General 1994 Psychiatric orientation/consciousness Oriented to person: yes 12/18/2017 None Full Exam - General 1994 Psychiatric orientation/consciousness Oriented to place: no 12/18/2017 None Full Exam - General 1994 Psychiatric orientation/consciousness Oriented to time: no 12/18/2017 None Full Exam - General 1994 Psychiatric orientation/consciousness Level of consciousness: alert 12/18/2017 None Full Exam - General 1994 Psychiatric behavior/psychomotor activity Overall: no tics, normal psychomotor activity 12/18/2017 None Full Exam - General 1994 Psychiatric mood and affect Mood: flat 12/18/2017 None Full Exam - General 1994 Psychiatric mood and affect Affect: mood congruent 12/18/2017 None Full Exam - General 1994 Psychiatric mood and affect Appropriateness: inappropriate emotional responses 12/18/2017 None Full Exam - General 1994 Psychiatric appearance Overall: well-groomed, good eye contact 12/18/2017 None Full Exam - General 1994 Psychiatric speech Overall: normal quality, no aphasia 12/18/2017 None Full Exam - General 1994 Neurologic cranial nerves Overall: crainial nerves 2 - 12 grossly intact 12/18/2017 None Full Exam - General 1994 Integument inspection of skin Overall: few scattered moles, no gross abnormalities 12/18/2017 None Full Exam - General 1994 Musculoskeletal gait and station Overall: normal gait 12/18/2017 None Full Exam - General 1994 Musculoskeletal gait and station Overall: normal station 12/18/2017 None Full Exam - General 1994 Lymphatic neck nodes Overall: anterior cervical chain benign 12/18/2017 None Full Exam - General 1994 Lymphatic neck nodes Overall: posterior cervical chain benign 12/18/2017 None Full Exam - General 1994 Abdomen abdominal exam Overall: normal bowel sounds 12/18/2017 None Full Exam - General 1994 Abdomen abdominal exam Overall: no tenderness 12/18/2017 None Full Exam - General 1994 Cardiovascular auscultation of heart Overall: regular rate 12/18/2017 None Full Exam - General 1994 Cardiovascular auscultation of heart Overall: normal heart sounds 12/18/2017 None Full Exam - General 1994 Cardiovascular auscultation of heart Overall: no murmurs 12/18/2017 None Full Exam - General 1994 Respiratory respiratory effort/rhythm Overall: no retractions 12/18/2017 None Full Exam - General 1994 Respiratory respiratory effort/rhythm Overall: normal rate 12/18/2017 None Full Exam - General 1994 Respiratory auscultation Overall: breath sounds clear bilaterally 12/18/2017 None Full Exam - General 1994 Ears/Nose/Throat otoscopic exam Overall: external auditory canals clear 12/18/2017 None Full Exam - General 1994 Ears/Nose/Throat otoscopic exam Overall: tympanic membranes clear 12/18/2017 None Full Exam - General 1994 Ears/Nose/Throat oral cavity/pharynx/larynx Overall: oral mucosa clear 12/18/2017 None Full Exam - General 1994 Eyes conjunctiva /eyelids Overall: conjunctiva clear 12/18/2017 None Full Exam - General 1994 Eyes pupils and irises Overall: pupils equal, round, reactive to light and accomodation 12/18/2017 None Procedures No Procedures data Vital Signs Date Vital 03/15/2018 Blood Pressure 1: 124/76 Code : 8480-6 BMI: 24.2 Code : 58193-8 Heart Rate 1 : 57 bpm Height: 5'6" SpO2: 96% Weight: 150 lbs 02/20/2018 Blood Pressure 1: 122/84 Code : 8480-6 BMI: 23.6 Code : 29682-1 Heart Rate 1 : 82 bpm Height: 5'6" SpO2: 95% Weight: 146 lbs 12/18/2017 Blood Pressure 1: 134/76 Code : 8480-6 BMI: 22.3 Code : 93480-2 Heart Rate 1 : 70 bpm Height: 5'6" SpO2: 96% Weight: 138 lbs Functional Status No Functional Status data History of Present Illness Symptom Name Status Result Effective Date Notes hypertension Quality chronic 03/15/2018 None hypertension Quality primary hypertension 03/15/2018 None hypertension Quality stable 03/15/2018 None hypertension Onset and Resolution ongoing 03/15/2018 None hypertension Onset of Symptom during adulthood 03/15/2018 None hypertension Blood Pressure Values not checking blood pressure at home 03/15/2018 None hypertension Severity not consistently severe symptoms, the symptoms fluctuate from no symptoms to anxiety and headaches 03/15/2018 None hypertension Frequency of Episodes unchanged 03/15/2018 None hypertension Triggers stress 03/15/2018 None hypertension Triggers no known associated factors 03/15/2018 None hypertension Alleviating Factors diet changes 03/15/2018 None hypertension Alleviating Factors medication 03/15/2018 None hypertension Exacerbating Factors stress 03/15/2018 None hypertension Pertinent Findings anxiety 03/15/2018 None hypertension Pertinent Findings Denies decreased energy 03/15/2018 None hypertension Pertinent Findings Denies dizziness 03/15/2018 None hypertension Pertinent Findings Denies dyspnea 03/15/2018 None hypertension Pertinent Findings Denies edema 03/15/2018 None memory loss Onset and Resolution ongoing 03/15/2018 None memory loss Onset of Symptom during adulthood 03/15/2018 None memory loss Limitation on Activities does not limit activities 03/15/2018 None memory loss Triggers no known associated factors 03/15/2018 None memory loss Pertinent Findings Denies difficulty reading 03/15/2018 None memory loss Pertinent Findings Denies difficulty writing 03/15/2018 None memory loss Pertinent Findings personality changes 03/15/2018 None memory loss Quality chronic 03/15/2018 None hypertension Quality chronic 02/20/2018 None hypertension Quality primary hypertension 02/20/2018 None hypertension Quality stable 02/20/2018 None hypertension Onset and Resolution ongoing 02/20/2018 None hypertension Onset of Symptom during adulthood 02/20/2018 None hypertension Blood Pressure Values not checking blood pressure at home 02/20/2018 None hypertension Severity not consistently severe symptoms, the symptoms fluctuate from no symptoms to anxiety and headaches 02/20/2018 None hypertension Frequency of Episodes unchanged 02/20/2018 None hypertension Triggers stress 02/20/2018 None hypertension Triggers no known associated factors 02/20/2018 None hypertension Alleviating Factors diet changes 02/20/2018 None hypertension Alleviating Factors medication 02/20/2018 None hypertension Exacerbating Factors stress 02/20/2018 None hypertension Pertinent Findings anxiety 02/20/2018 None hypertension Pertinent Findings Denies decreased energy 02/20/2018 None hypertension Pertinent Findings Denies dizziness 02/20/2018 None hypertension Pertinent Findings Denies dyspnea 02/20/2018 None hypertension Pertinent Findings Denies edema 02/20/2018 None memory loss Onset of Symptom during adulthood 02/20/2018 None memory loss Limitation on Activities does not limit activities 02/20/2018 None memory loss Triggers no known associated factors 02/20/2018 None memory loss Pertinent Findings Denies difficulty reading 02/20/2018 None memory loss Pertinent Findings Denies difficulty writing 02/20/2018 None memory loss Pertinent Findings personality changes 02/20/2018 None memory loss Quality chronic 02/20/2018 None memory loss Onset and Resolution ongoing 02/20/2018 None hypertension Quality chronic 12/18/2017 None hypertension Quality stable 12/18/2017 None hypertension Quality primary hypertension 12/18/2017 None hypertension Onset and Resolution ongoing 12/18/2017 None hypertension Onset of Symptom during adulthood 12/18/2017 None hypertension Triggers stress 12/18/2017 None hypertension Triggers no known associated factors 12/18/2017 None hypertension Alleviating Factors medication 12/18/2017 None hypertension Alleviating Factors diet changes 12/18/2017 None hypertension Exacerbating Factors stress 12/18/2017 None hypertension Pertinent Findings Denies decreased energy 12/18/2017 None hypertension Pertinent Findings Denies dizziness 12/18/2017 None hypertension Pertinent Findings Denies dyspnea 12/18/2017 None hypertension Pertinent Findings Denies edema 12/18/2017 None hypertension Pertinent Findings anxiety 12/18/2017 None hyperlipidemia Onset of Symptom during adulthood 12/18/2017 None hyperlipidemia Severity mild 12/18/2017 None hyperlipidemia Triggers no known associated factors 12/18/2017 None hyperlipidemia Alleviating Factors medication 12/18/2017 None hyperlipidemia Exacerbating Factors diet 12/18/2017 None hyperlipidemia Onset and Resolution ongoing 12/18/2017 None hyperlipidemia Quality chronic 12/18/2017 None hyperlipidemia Quality stable 12/18/2017 None hyperlipidemia Pertinent Findings Denies cold intolerance 12/18/2017 None hyperlipidemia Pertinent Findings Denies edema 12/18/2017 None hyperlipidemia Pertinent Findings Denies excessive alcohol intake 12/18/2017 None hyperlipidemia Pertinent Findings Denies fever 12/18/2017 None memory loss Onset of Symptom during adulthood 12/18/2017 None memory loss Limitation on Activities does not limit activities 12/18/2017 None memory loss Triggers no known associated factors 12/18/2017 None memory loss Pertinent Findings Denies difficulty reading 12/18/2017 None memory loss Pertinent Findings Denies difficulty writing 12/18/2017 None memory loss Pertinent Findings personality changes 12/18/2017 None memory loss Quality chronic 12/18/2017 None memory loss Onset and Resolution ongoing 12/18/2017 None hypertension Blood Pressure Values not checking blood pressure at home 12/18/2017 None hypertension Severity not consistently severe symptoms, the symptoms fluctuate from no symptoms to anxiety and headaches 12/18/2017 None hypertension Frequency of Episodes unchanged 12/18/2017 None Advance Directives No Advance Directive data Encounters Encounter Performer Location Codes Date [id number]) [id number] EST. 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] Diagnosis: Malignant neoplasm of overlapping sites of bladder[ICD10: C67.8] Diagnosis: Onycholysis[ICD10: L60.1] Harriet Dorsey MD, [facility] CPT-4: 89928 03/15/2018 ([id number]) [id number] EST. 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 Pt has been encouraged to exercise daily. The pt has been advised to call the office if there are any acute concerns about change in blood pressure readings at home. Bladder cancer - Continue current management - pt to be seen again by oncologist. Dementia with hx of Behaviors - his symptoms have been controlled on his current regimen. Continue with risperdal as his symptoms have been stable on the current regimen. I have not recommended any changes to his current regimen. Insomnia - recommendation of patient to have increase of risperdal from 7.5mg nightly to 15mg nightly - monitor symptoms. Pt's family was advised to look at [facility] as he is too high functioning for the shelter. 03/15/2018 Appointment: Harriet Dorsey WPtel: [address] [place], [place] [id number] (30 min) [facility] 03/15/2018 Patient Education: Patient Medication Summary Completed 03/15/2018 Visit Plan: Dementia with hx of Behaviors - his symptoms have been controlled on his current regimen. Continue with risperdal as his symptoms have been stable on the current regimen. I have not recommended any changes to his current regimen. Hypertension - well controlled - continue with current medications, continue with no added salt diet. Pt has been encouraged to exercise daily. The pt has been advised to call the office if there are any acute concerns about change in blood pressure readings at home. Bladder cancer - recent surgical procedure at . Continue current management. 02/20/2018 Appointment: [phone] [id number] ([facility] min) Moderate 02/20/2018 Patient Education: Patient Medication Summary Completed 02/20/2018 Visit Plan: Hypertension - well controlled - continue with current medications, continue with no added salt diet. Pt has been encouraged to exercise daily. The pt has been advised to call the office if there are any acute concerns about change in blood pressure readings at home. Dementia with Behaviors - I have discussed this patient's case with the pt and available family. The patient is on medication which appears to be controlling the worst of the symptoms. I have not recommended a change to the regimen at this time, but will continue to closely monitor the medications for effectiveness. 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 Dementia with hx of Behaviors - his symptoms have been controlled on his current regimen. Continue with risperdal as his symptoms have been stable on the current regimen. I have not recommended any changes to his current regimen. Hypertension - well controlled - continue with current medications, continue with no added salt diet. Pt has been encouraged to exercise daily. The pt has been advised to call the office if there are any acute concerns about change in blood pressure readings at home. Bladder cancer - recent surgical procedure at . Continue current management. . Hypertension - well controlled - continue with current medications, continue with no added salt diet. Pt has been encouraged to exercise daily. The pt has been advised to call the office if there are any acute concerns about change in blood pressure readings at home. Dementia with Behaviors - I have discussed this patient's case with the pt and available family. The patient is on medication which appears to be controlling the worst of the symptoms. I have not recommended a change to the regimen at this time, but will continue to closely monitor the medications for effectiveness. 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 Hypertension - well controlled - continue with current medications, continue with no added salt diet. Pt has been encouraged to exercise daily. The pt has been advised to call the office if there are any acute concerns about change in blood pressure readings at home. Bladder cancer -Continue current management - pt to be seen again by oncologist. Dementia with hx of Behaviors - his symptoms have been controlled on his current regimen. Continue with risperdal as his symptoms have been stable on the current regimen. I have not recommended any changes to his current regimen. Insomnia - recommendation of patient to have increase of risperdal from 7.5mg nightly to 15mg nightly - monitor symptoms. Pt's family was advised to look at [facility] and [facility] as he is too high functioning for the shelter.
--- OUTSIDE RECORDS SUMMARY | 2018-04-07 19:36 | XMS REPORT ---
Author Author JANEL OVIEDO Organization [facility] Address [address] [place] [address] Care Team Providers Care Manager Requirements Name Role Phone JANEL OVIEDO Unavailable PROBLEMS Unknown Problems ALLERGIES No Known Allergies ENCOUNTERS Encounter Location Date Diagnosis [facility] [id number] [place] [phone] Sep, [facility] [id number] [place] [phone] Sep, Unilateral inguinal hernia without obstruction or gangrene, recurrence not specified K40.90 [facility] [address] [phone] November, Medication side effect, initial encounter T88.7XXA [facility] [id number] [place] [phone] Oct, Hip pain M25.559 [facility] [id number] [place] [phone] Jul, Chronic 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 L29.8 IMMUNIZATIONS No Known Immunizations SOCIAL HISTORY Never Assessed REASON FOR VISIT Pain/left side on his stomach x 3 weeks -- alicia boyle PLAN OF CARE Activity Details Follow Up prn Reason: VITAL SIGNS Height 68 in 2017-10-19 Weight 137.0 lbs 2017-10-19 Temperature 97.9 degrees Fahrenheit 2017-10-19 Heart Rate 68 bpm 2017-10-19 Respiratory Rate 18 2017-10-19 BMI 20.83 kg/m2 2017-10-19 Blood pressure systolic 110 mmHg 2017-10-19 Blood pressure diastolic 68 mmHg 2017-10-19 MEDICATIONS Medication Instructions Dosage Frequency Start Date End Date Duration Status Metformin HCl 500 MG Orally Twice a day 1 tablet with meals 12h Active Atorvastatin Calcium 40 MG Orally Once a day 1 tablet 24h Active HydrOXYzine HCl 10 MG Orally 2 times a day, prn itching as directed Jul, 07 days Not-Taking Triamcinolone Acetonide 0.025 % Externally Twice a day 1 application to affected area 12h Jul, 07 days Not-Taking Lisinopril 5 MG Orally Once a day 1 tablet 24h Active Carvedilol 12.5 MG Active RESULTS No Results PROCEDURES No Known procedures INSTRUCTIONS MEDICATIONS ADMINISTERED No Known Medications MEDICAL (GENERAL) HISTORY Type Description Date Medical History type II diabetes Surgical History artery replacement Hospitalization History kidney infection as child
--- OUTSIDE RECORDS SUMMARY | 2018-04-07 19:36 | XMS REPORT ---
Author Author PALMA SCOTT [facility] Address [address] [place] [address] Care Team Providers Care Public Health Staff Nurse Name Role Phone PALMA SCOTT Unavailable PROBLEMS Unknown Problems ALLERGIES No Information ENCOUNTERS Encounter Location Date Diagnosis [facility] [id number] [phone] Sep, [facility] [id number] [place] [phone] Sep, Unilateral inguinal hernia without obstruction or gangrene, recurrence not specified K40.90 [facility] [id number] [place] [phone] November, Medication side effect, initial encounter T88.7XXA [facility] [id number] [place] [phone] Oct, Hip pain M25.559 [facility] [id number] [place] [phone] Jul, Chronic 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.8 IMMUNIZATIONS No Known Immunizations SOCIAL HISTORY Never Assessed REASON FOR VISIT Triage JStrasserR PLAN OF CARE VITAL SIGNS Height 68 in 2017-10-25 Weight 133.0 lbs 2017-10-25 Temperature 97.5 degrees Fahrenheit 2017-10-25 Heart Rate 60 bpm 2017-10-25 Respiratory Rate 18 2017-10-25 BMI 20.22 kg/m2 2017-10-25 Blood pressure systolic 110 mmHg 2017-10-25 Blood pressure diastolic 70 mmHg 2017-10-25 MEDICATIONS Unknown Medications RESULTS No Results PROCEDURES No Known procedures INSTRUCTIONS MEDICATIONS ADMINISTERED No Known Medications MEDICAL (GENERAL) HISTORY Type Description Date Medical History type II diabetes Surgical History artery replacement Hospitalization History kidney infection as child
--- OUTSIDE RECORDS SUMMARY | 2018-04-07 19:38 | XMS REPORT | Continuity of Care Document ---
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 05/02/2017 DAVID SALINAS MD Ot K26.9 DUODENAL ULCER, UNSP ACUTE OR CHRONIC 05/02/2017 DAVID SALINAS MD Ot K29.50 UNSPECIFIED CHRONIC GASTRITIS WITHOUT BL 05/02/2017 DAVID SALINAS MD Ot K44.9 DIAPHRAGMATIC HERNIA WITHOUT OBSTRUCTION 05/02/2017 DAVID SALINAS MD Ot Z79.84 HALFWAY (CURRENT) USE OF ORAL HYPOGLYC 05/02/2017 DAVID SALINAS MD Ot Z79.899 OTHER HALFWAY (CURRENT) DRUG THERAPY 05/04/2017 DAVID SALINAS MD Ot D50.9 IRON DEFICIENCY ANEMIA, UNSPECIFIED 05/04/2017 DAVID SALINAS MD Ot E11.9 TYPE 2 DIABETES MELLITUS WITHOUT COMPLIC 05/04/2017 DAVID SALINAS MD Ot E78.5 HYPERLIPIDEMIA, UNSPECIFIED 05/04/2017 DAVID SALINAS MD Ot I10 ESSENTIAL (PRIMARY) HYPERTENSION 05/04/2017 DAVID SALINAS MD Ot I25.10 ATHSCL HEART DISEASE OF [place] CORONARY 05/04/2017 DAVID SALINAS MD Ot 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 05/04/2017 DAVID SALINAS MD Ot K26.9 DUODENAL ULCER, UNSP ACUTE OR CHRONIC 05/04/2017 DAVID SALINAS MD Ot K29.50 UNSPECIFIED CHRONIC GASTRITIS WITHOUT BL 05/04/2017 DAVID SALINAS MD Ot K44.9 DIAPHRAGMATIC HERNIA WITHOUT OBSTRUCTION 05/04/2017 DAVID SALINAS MD Ot Z79.84 FIREBRICK AND REFRACTORY TILE REPAIRER (CURRENT) USE OF ORAL HYPOGLYC 05/04/2017 DAVID SALINAS MD Ot 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 05/11/2017 DAVID SALINAS MD Ot D50.9 IRON DEFICIENCY ANEMIA, UNSPECIFIED 05/11/2017 DAVID SALINAS MD Ot E11.9 TYPE 2 DIABETES MELLITUS WITHOUT COMPLIC 05/11/2017 DAVID SALINAS MD Ot E78.5 HYPERLIPIDEMIA, UNSPECIFIED 05/11/2017 DAVID SALINAS MD Ot I10 ESSENTIAL (PRIMARY) HYPERTENSION 05/11/2017 DAVID SALINAS MD Ot I25.10 ATHSCL HEART DISEASE OF [place] CORONARY 05/11/2017 DAVID SALINAS MD Ot 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 05/11/2017 DAVID SALINAS MD Ot K26.9 DUODENAL ULCER, UNSP ACUTE OR CHRONIC 05/11/2017 DAVID SALINAS MD Ot K29.50 UNSPECIFIED CHRONIC GASTRITIS WITHOUT BL 05/11/2017 DAVID SALINAS MD Ot K44.9 DIAPHRAGMATIC HERNIA WITHOUT OBSTRUCTION 05/11/2017 DAVID SALINAS MD Ot Z79.84 HALFWAY (CURRENT) USE OF ORAL HYPOGLYC 05/11/2017 DAVID SALINAS MD Ot Z79.899 OTHER HALFWAY (CURRENT) DRUG THERAPY 06/02/2017 DAVID SALINAS MD Ot D50.9 IRON DEFICIENCY ANEMIA, UNSPECIFIED 06/02/2017 DAVID SALINAS MD Ot E11.9 TYPE 2 DIABETES MELLITUS WITHOUT COMPLIC 06/02/2017 DAVID SALINAS MD Ot E78.5 HYPERLIPIDEMIA, UNSPECIFIED 06/02/2017 DAVID SALINAS MD Ot I10 ESSENTIAL (PRIMARY) HYPERTENSION 06/02/2017 DAVID SALINAS MD Ot I25.10 ATHSCL HEART DISEASE OF [place] CORONARY 06/02/2017 DAVID SALINAS MD Ot 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 06/02/2017 DAVID SALINAS MD Ot K26.9 DUODENAL ULCER, UNSP ACUTE OR CHRONIC 06/02/2017 DAVID SALINAS MD Ot K29.50 UNSPECIFIED CHRONIC GASTRITIS WITHOUT BL 06/02/2017 DAVID SALINAS MD Ot K44.9 DIAPHRAGMATIC HERNIA WITHOUT OBSTRUCTION 06/02/2017 DAVID SALINAS MD Ot Z79.84 FIREBRICK AND REFRACTORY TILE REPAIRER (CURRENT) USE OF ORAL HYPOGLYC 06/02/2017 DAVID SALINAS MD Ot 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 11/02/2017 DAVID SALINAS MD Ot 414.01 CORONARY ATHEROSCLEROSIS OF [place] CORON 11/02/2017 DAVID SALINAS MD Ot 786.50 CHEST PAIN NOS 11/02/2017 SALINAS MD, DAVID D Ot D50.9 IRON DEFICIENCY ANEMIA, UNSPECIFIED 11/02/2017 DAVID SALINAS MD Ot E11.9 TYPE 2 DIABETES MELLITUS WITHOUT COMPLIC 11/02/2017 DAVID SALINAS MD Ot E78.5 HYPERLIPIDEMIA, UNSPECIFIED 11/02/2017 DAVID SALINAS MD Ot I10 ESSENTIAL (PRIMARY) HYPERTENSION 11/02/2017 DAVID SALINAS MD Ot I25.10 ATHSCL HEART DISEASE OF [place] CORONARY 11/02/2017 DAVID SALINAS MD Ot 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 11/02/2017 DAVID SALINAS MD, Ot K26.9 DUODENAL ULCER, UNSP ACUTE OR CHRONIC 11/02/2017 DAVID SALINAS MD Ot K29.50 UNSPECIFIED CHRONIC GASTRITIS WITHOUT BL 11/02/2017 DAVID SALINAS MD Ot K44.9 DIAPHRAGMATIC HERNIA WITHOUT OBSTRUCTION 11/02/2017 DAVID SALINAS MD Ot Z79.84 HALFWAY (CURRENT) USE OF ORAL HYPOGLYC 11/02/2017 DAVID SALINAS MD Ot Z79.899 OTHER HALFWAY (CURRENT) DRUG THERAPY 11/02/2017 DAVID SALINAS MD [...] DO Ot I25.10 ATHSCL HEART DISEASE OF [place] CORONARY 11/06/2017 SRAVAN BRAVO DO B Ot K21.9 GASTRO-ESOPHAGEAL REFLUX DISEASE WITHOUT 11/06/2017 JOEL BRAVO DOIC B Ot 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, W OBST, 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, 11/06/2017 LAWRENCE NEELY SRAVAN B Ot Z11.2 ENCOUNTER FOR SCREENING FOR OTHER BACTER 11/06/2017 LAWRENCE NEELY SRAVAN B Ot Z79.84 FIREBRICK AND REFRACTORY TILE REPAIRER (CURRENT) USE OF ORAL HYPOGLYC 11/06/2017 LAWRENCE NEELY SRAVAN B Ot 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 11/06/2017 LAWRENCE NEELY SRAVAN [...] B Ot I25.10 ATHSCL HEART DISEASE OF [place] CORONARY 11/07/2017 LAWRENCE NEELY SRAVAN B Ot K21.9 GASTRO-ESOPHAGEAL REFLUX DISEASE WITHOUT 11/07/2017 LAWRENCE NEELY, SRAVAN B Ot 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, W OBST, 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, 11/07/2017 LAWRENCE NEELY SRAVAN B Ot Z11.2 ENCOUNTER FOR SCREENING FOR OTHER BACTER 11/07/2017 LAWRENCE NEELY SRAVAN B Ot Z79.84 FIREBRICK AND REFRACTORY TILE REPAIRER (CURRENT) USE OF ORAL HYPOGLYC 11/07/2017 LAWRENCE NEELY SRAVAN B Ot 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 11/07/2017 LAWRENCE NEELY SRAVAN B Ot Z95.1 PRESENCE OF AORTOCORONARY BYPASS GRAFT 11/08/2017 DAVID SALINAS MD Ot 414.01 CORONARY ATHEROSCLEROSIS OF [place] CORON 11/08/2017 DAVID SALINAS MD Ot 786.50 CHEST PAIN NOS 11/08/2017 DAVID SALINAS MD Ot D50.9 IRON DEFICIENCY ANEMIA, UNSPECIFIED 11/08/2017 DAVID SALINAS MD Ot E11.9 TYPE 2 DIABETES MELLITUS WITHOUT COMPLIC 11/08/2017 DAVID SALINAS MD Ot E78.5 HYPERLIPIDEMIA, UNSPECIFIED 11/08/2017 DAVID SALINAS MD Ot I10 ESSENTIAL (PRIMARY) HYPERTENSION 11/08/2017 DAVID SALINAS MD Ot I25.10 ATHSCL HEART DISEASE OF [place] CORONARY 11/08/2017 DAVID SALINAS MD Ot 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 11/08/2017 DAVID SALINAS MD Ot K26.9 DUODENAL ULCER, UNSP ACUTE OR CHRONIC 11/08/2017 DAVID SALINAS MD Ot K29.50 UNSPECIFIED CHRONIC GASTRITIS WITHOUT BL 11/08/2017 DAVID SLAINAS MD Ot K44.9 DIAPHRAGMATIC HERNIA WITHOUT OBSTRUCTION 11/08/2017 DAVID SALINAS MD Ot Z79.84 FIREBRICK AND REFRACTORY TILE REPAIRER (CURRENT) USE OF ORAL HYPOGLYC 11/08/2017 DAVID SALINAS MD Ot Z79.899 OTHER HALFWAY (CURRENT) DRUG THERAPY 11/08/2017 DAVID SALINAS MD Ot D64.9 ANEMIA, UNSPECIFIED 11/08/2017 DAVID SALINAS MD Ot K92.2 GASTROINTESTINAL HEMORRHAGE, UNSPECIFIED 11/08/2017 DAVID SALINAS MD Ot Z01.818 ENCOUNTER FOR OTHER PREPROCEDURAL EXAMIN 11/08/2017 AMRIT SHARP APRN Ot F03.90 UNSPECIFIED DEMENTIA WITHOUT BEHAVIORAL 11/08/2017 AMRIT SHARP MICROBIOLOGY MANAGER Ot I10 ESSENTIAL (PRIMARY) HYPERTENSION 11/08/2017 AMRIT SHARP APRN Ot N39.0 URINARY TRACT INFECTION, SITE NOT SPECIF 11/08/2017 AMRIT SHARP APRN Ot R41.82 ALTERED MENTAL STATUS, UNSPECIFIED 11/08/2017 AMRIT SHARP APRN Ot Z79.84 FIREBRICK AND REFRACTORY TILE REPAIRER (CURRENT) USE OF ORAL HYPOGLYC 11/08/2017 AMRIT SHARP APRN Ot Z87.19 PERSONAL HISTORY OF OTHER DISEASES OF TH 11/08/2017 AMRIT SHARP APRN Ot Z95.5 PRESENCE OF CORONARY ANGIOPLASTY IMPLANT 11/08/2017 DAVID SALINAS MD Ot 414.01 CORONARY ATHEROSCLEROSIS OF [place] CORON 11/08/2017 DAVID SALINAS MD Ot 786.50 CHEST PAIN NOS 11/08/2017 DAVID SALINAS MD Ot D50.9 IRON DEFICIENCY ANEMIA, UNSPECIFIED 11/08/2017 DAVID SALINAS MD Ot E11.9 TYPE 2 DIABETES MELLITUS WITHOUT COMPLIC 11/08/2017 DAVID SALINAS MD Ot E78.5 HYPERLIPIDEMIA, UNSPECIFIED 11/08/2017 DAVID SALINAS MD Ot I10 ESSENTIAL (PRIMARY) HYPERTENSION 11/08/2017 DAVID SALINAS MD Ot I25.10 ATHSCL HEART DISEASE OF [place] CORONARY 11/08/2017 DAVID SALINAS MD Ot 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 11/08/2017 DAVID SALINAS MD Ot K26.9 DUODENAL ULCER, UNSP ACUTE OR CHRONIC 11/08/2017 DAVID SALINAS MD Ot K29.50 UNSPECIFIED CHRONIC GASTRITIS WITHOUT BL 11/08/2017 DAVID SALINAS MD, Ot K44.9 DIAPHRAGMATIC HERNIA WITHOUT OBSTRUCTION 11/08/2017 DAVID SALINAS MD Ot Z79.84 FIREBRICK AND REFRACTORY TILE REPAIRER (CURRENT) USE OF ORAL HYPOGLYC 11/08/2017 DAVID SALINAS MD Ot Z79.899 OTHER HALFWAY (CURRENT) DRUG THERAPY 11/08/2017 DAVID SALINAS MD Ot D64.9 ANEMIA, UNSPECIFIED 11/08/2017 DAVID SALINAS MD Ot K92.2 GASTROINTESTINAL HEMORRHAGE, UNSPECIFIED 11/08/2017 DAVID SALINAS MD Ot Z01.818 ENCOUNTER FOR OTHER PREPROCEDURAL EXAMIN 11/08/2017 DAVID SALINAS MD Ot 414.01 CORONARY ATHEROSCLEROSIS OF [place] CORON 11/08/2017 DAVID SALINAS MD Ot 786.50 CHEST PAIN NOS 11/08/2017 DAVID SALINAS MD Ot D50.9 IRON DEFICIENCY ANEMIA, UNSPECIFIED 11/08/2017 DAVID SALINAS MD Ot E11.9 TYPE 2 DIABETES MELLITUS WITHOUT COMPLIC 11/08/2017 DAVID SALINAS MD Ot E78.5 HYPERLIPIDEMIA, UNSPECIFIED 11/08/2017 DAVID SALINAS MD Ot I10 ESSENTIAL (PRIMARY) HYPERTENSION 11/08/2017 DAVID SALINAS MD Ot I25.10 ATHSCL HEART DISEASE OF [place] CORONARY 11/08/2017 DAVID SALINAS MD Ot 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 11/08/2017 DAVID SALINAS MD Ot K26.9 DUODENAL ULCER, UNSP ACUTE OR CHRONIC 11/08/2017 DAVID SALINAS MD Ot K29.50 UNSPECIFIED CHRONIC GASTRITIS WITHOUT BL 11/08/2017 DAVID SALINAS MD Ot K44.9 DIAPHRAGMATIC HERNIA WITHOUT OBSTRUCTION 11/08/2017 DAVID SALINAS MD Ot Z79.84 FIREBRICK AND REFRACTORY TILE REPAIRER (CURRENT) USE OF ORAL HYPOGLYC 11/08/2017 DAVID SALINAS MD Ot Z79.899 OTHER HALFWAY (CURRENT) DRUG THERAPY 11/08/2017 DAVID SALINAS MD Ot D64.9 ANEMIA, UNSPECIFIED 11/08/2017 DAVID SALINAS MD Ot K92.2 GASTROINTESTINAL HEMORRHAGE, UNSPECIFIED 11/08/2017 DAVID SALINAS MD Ot Z01.818 ENCOUNTER FOR OTHER PREPROCEDURAL EXAMIN 11/09/2017 DAVID SALINAS MD Ot 414.01 CORONARY ATHEROSCLEROSIS OF [place] CORON 11/09/2017 DAVID SALINAS MD Ot 786.50 CHEST PAIN NOS 11/09/2017 DAVID SALINAS MD Ot D50.9 IRON DEFICIENCY ANEMIA, UNSPECIFIED 11/09/2017 DAVID SALINAS MD Ot E11.9 TYPE 2 DIABETES MELLITUS WITHOUT COMPLIC 11/09/2017 DAVID SALINAS MD Ot E78.5 HYPERLIPIDEMIA, UNSPECIFIED 11/09/2017 DAVID SALINAS MD Ot I10 ESSENTIAL (PRIMARY) HYPERTENSION 11/09/2017 DAVID SALINAS MD Ot I25.10 ATHSCL HEART DISEASE OF [place] CORONARY 11/09/2017 DAVID SALINAS MD Ot 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 11/09/2017 DAVID SALINAS MD Ot K26.9 DUODENAL ULCER, UNSP ACUTE OR CHRONIC 11/09/2017 DAVID SALINAS MD Ot K29.50 UNSPECIFIED CHRONIC GASTRITIS WITHOUT BL 11/09/2017 DAVID SALINAS MD Ot K44.9 DIAPHRAGMATIC HERNIA WITHOUT OBSTRUCTION 11/09/2017 DAVID SALINAS MD Ot Z79.84 HALFWAY (CURRENT) USE OF ORAL HYPOGLYC 11/09/2017 DAVID SALINAS MD Ot 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 11/09/2017 DAVID SALINAS MD [...] UNSPECIFIED 11/10/2017 AMRIT SHARP APRN Ot Z79.84 HALFWAY (CURRENT) USE OF ORAL HYPOGLYC 11/10/2017 AMRIT [...] B Ot I25.10 ATHSCL HEART DISEASE OF [place] CORONARY 11/13/2017 JOEL BRAVO DOIC B Ot K21.9 GASTRO-ESOPHAGEAL REFLUX DISEASE WITHOUT 11/13/2017 JOEL BRAVO DOIC B Ot 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, W OBST, W/O GANGR, 11/13/2017 SRAVAN BRAVO DO B Ot Z11.2 ENCOUNTER FOR SCREENING FOR OTHER BACTER 11/13/2017 LAWRENCE NEELY SRAVAN B Ot Z79.84 FIREBRICK AND REFRACTORY TILE REPAIRER (CURRENT) USE OF ORAL HYPOGLYC 11/13/2017 JOEL BRAVO DOIC B Ot 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 11/13/2017 JOEL BRAVO DOIC [...] Ot N30.01 ACUTE CYSTITIS WITH HEMATURIA 11/20/2017 OCNOR WILSON MD Ot Z79.84 HALFWAY (CURRENT) USE OF ORAL HYPOGLYC 11/20/2017 CONOR WILSON MD Ot Z95.1 PRESENCE OF AORTOCORONARY BYPASS GRAFT 11/20/2017 CONOR WILSON MD Ot Z95.5 PRESENCE OF CORONARY ANGIOPLASTY IMPLANT 11/20/2017 JOSEPH WHARTON, DAVID Foreman Ot N39.0 URINARY TRACT INFECTION, SITE NOT SPECIF 11/20/2017 CONOR WILSON MD Ot E11.9 TYPE 2 DIABETES MELLITUS WITHOUT COMPLIC 11/20/2017 CNOOR WILSON MD Ot F02.80 DEMENTIA IN OTH DISEASES CLASSD ELSWHR W 11/20/2017 CONOR WILSON MD Ot G30.9 ALZHEIMER'S DISEASE, UNSPECIFIED 11/20/2017 CONOR WILSON MD Ot I10 ESSENTIAL (PRIMARY) HYPERTENSION 11/20/2017 CONOR WILSON MD Ot I25.810 ATHEROSCLEROSIS OF CABG W/O ANGINA PECTO 11/20/2017 CONOR WILSON MD Ot N30.01 ACUTE CYSTITIS WITH HEMATURIA 11/20/2017 CONOR WILSON MD Ot Z79.84 HALFWAY (CURRENT) USE OF ORAL HYPOGLYC 11/20/2017 CONOR [...] HEMATURIA 11/20/2017 CONOR WILSON MD Ot Z79.84 HALFWAY (CURRENT) USE OF ORAL HYPOGLYC 11/20/2017 CONOR [...] HEMATURIA 11/21/2017 CONOR WILSON MD Ot Z79.84 FIREBRICK AND REFRACTORY TILE REPAIRER (CURRENT) USE OF ORAL HYPOGLYC 11/21/2017 CONOR WILSON MD Ot Z95.1 PRESENCE OF AORTOCORONARY BYPASS GRAFT 11/21/2017 CONOR WILSON MD Ot Z95.5 PRESENCE OF CORONARY ANGIOPLASTY IMPLANT 11/21/2017 CONOR WILSON MD Ot E11.9 TYPE 2 DIABETES MELLITUS WITHOUT COMPLIC 11/21/2017 CONOR WILSON MD Ot F02.80 DEMENTIA IN OTH DISEASES CLASSD ELSWHR W 11/21/2017 CONOR WILSON MD, Ot G30.9 ALZHEIMER'S DISEASE, UNSPECIFIED 11/21/2017 CONOR WILSON MD Ot I10 ESSENTIAL (PRIMARY) HYPERTENSION 11/21/2017 CONOR WILSON MD Ot I25.810 ATHEROSCLEROSIS OF CABG W/O ANGINA PECTO 11/21/2017 CONOR WILSON MD Ot N30.01 ACUTE CYSTITIS WITH HEMATURIA 11/21/2017 CONOR WILSON MD Ot Z79.84 FIREBRICK AND REFRACTORY TILE REPAIRER (CURRENT) USE OF ORAL HYPOGLYC 11/21/2017 CONOR [...] HEMATURIA 11/22/2017 CONOR WILSON MD Ot Z79.84 FIREBRICK AND REFRACTORY TILE REPAIRER (CURRENT) USE OF ORAL HYPOGLYC 11/22/2017 CONOR [...] HEMATURIA 11/24/2017 CONOR WILSON MD Ot Z79.84 HALFWAY (CURRENT) USE OF ORAL HYPOGLYC 11/24/2017 CONOR [...] HEMATURIA 11/24/2017 CONOR WILSON MD Ot Z79.84 HALFWAY (CURRENT) USE OF ORAL HYPOGLYC 11/24/2017 CONOR [...] HEMATURIA 11/24/2017 CONOR WILSON MD Ot Z79.84 FIREBRICK AND REFRACTORY TILE REPAIRER (CURRENT) USE OF ORAL HYPOGLYC 11/24/2017 CONOR [...] HEMATURIA 11/24/2017 CONOR WILSON MD Ot Z79.84 HALFWAY (CURRENT) USE OF ORAL HYPOGLYC 11/24/2017 CONOR [...] HEMATURIA 11/28/2017 CONOR WILSON MD Ot Z79.84 HALFWAY (CURRENT) USE OF ORAL HYPOGLYC 11/28/2017 CONOR [...] URINE 11/28/2017 CONOR WILSON MD, Ot Z79.84 HALFWAY (CURRENT) USE OF ORAL HYPOGLYC 11/28/2017 CONOR WILSON MD, Ot Z95.1 PRESENCE OF AORTOCORONARY BYPASS GRAFT 11/28/2017 CONOR WILSON MD, Ot Z95.5 PRESENCE OF CORONARY ANGIOPLASTY IMPLANT 11/29/2017 Tien Ricci W 307.9 OTHER AND UNSPECIFIED SPECIAL SYMPTOMS OR SYNDROMES, NOT ELSEWHERE CLASSIFIED 11/29/2017 Tien Ricci W R45.1 RESTLESSNESS AND AGITATION 12/05/2017 RadhamesNadine gomesb W 188.9 MALIGNANT NEOPLASM OF BLADDER, PART UNSPECIFIED 12/05/2017 RadhamesNadine gomesb W 250.00 DIABETES MELLITUS WITHOUT MENTION OF COMPLICATION, TYPE II OR UNSPECIFIED TYPE, NOT STATED UNCONTROLLED 12/05/2017 Nadine Riccib A 290.41 12/05/2017 RadhamesNadine gomesb W 307.9 OTHER AND UNSPECIFIED SPECIAL SYMPTOMS OR SYNDROMES, NOT ELSEWHERE CLASSIFIED 12/05/2017 RadhamesNadine gomesb W 401.0 12/05/2017 RadhamesNadine gomesb W 414.01 CORONARY ATHEROSCLEROSIS OF [place] CORONARY ARTERY 12/05/2017 RadhamesNadine gomesb W 788.20 RETENTION OF URINE, UNSPECIFIED 12/05/2017 RadhamesNadine gomesb W C67.9 MALIGNANT NEOPLASM OF BLADDER, UNSPECIFIED 12/05/2017 Nadine Riccib W E11.9 TYPE 2 DIABETES MELLITUS WITHOUT COMPLICATIONS 12/05/2017 Nadine Riccib A F01.51 VASCULAR DEMENTIA WITH BEHAVIORAL DISTURBANCE 12/05/2017 Tien Ricci W I10 ESSENTIAL (PRIMARY) HYPERTENSION 12/05/2017 Tien Ricci W I25.10 ATHSCL HEART DISEASE OF [place] CORONARY ARTERY W/O ANG PCTRS 12/05/2017 Tien Ricci W R33.9 RETENTION OF URINE, UNSPECIFIED 12/05/2017 Tien Ricci W R45.1 RESTLESSNESS AND AGITATION 12/12/2017 MARQUES PAULSON MD Ot C67.9 MALIGNANT NEOPLASM OF BLADDER, UNSPECIFI 12/12/2017 MARQUES PAULSON MD, Ot N40.1 BENIGN PROSTATIC HYPERPLASIA WITH LOWER 12/12/2017 MARQUES PAULSON MD, Ot R33.8 OTHER RETENTION OF URINE 12/12/2017 MARQUES PAULSON MD, Ot Z01.818 ENCOUNTER FOR OTHER PREPROCEDURAL EXAMIN 12/14/2017 MARQUES PAULSON MD Ot C61 MALIGNANT NEOPLASM OF PROSTATE 12/14/2017 MARQUES PAULSON MD, Ot C67.9 MALIGNANT NEOPLASM OF BLADDER, UNSPECIFI 12/14/2017 MARQUES PAULSON MD Ot E11.9 TYPE 2 DIABETES MELLITUS WITHOUT COMPLIC 12/14/2017 MARQUES PAULSON MD Ot E78.00 PURE HYPERCHOLESTEROLEMIA, UNSPECIFIED 12/14/2017 MARQUES PAULSON MD Ot F03.90 UNSPECIFIED DEMENTIA WITHOUT BEHAVIORAL 12/14/2017 MARQUES PAULSON MD Ot I10 ESSENTIAL (PRIMARY) HYPERTENSION 12/14/2017 MARQUES PAULSON MD, Ot I25.10 ATHSCL HEART DISEASE OF [place] CORONARY 12/14/2017 MARQUES PAULSON MD, Ot N31.9 NEUROMUSCULAR DYSFUNCTION OF BLADDER, UN 12/14/2017 MARQUES PAULSON MD, Ot N40.1 BENIGN PROSTATIC HYPERPLASIA WITH LOWER 12/14/2017 MARQUES PAULSON MD Ot R33.8 OTHER RETENTION OF URINE 12/14/2017 MARQUES PAULSON MD, Ot Z79.899 OTHER HALFWAY (CURRENT) DRUG THERAPY 12/14/2017 MARQUES PAULSON MD Ot Z95.1 PRESENCE OF AORTOCORONARY BYPASS GRAFT 12/14/2017 LORENE MD, MARQUES A Ot Z95.5 PRESENCE OF CORONARY ANGIOPLASTY IMPLANT 12/17/2017 MARQUES PAULSON MD Ot C67.9 MALIGNANT NEOPLASM OF BLADDER, UNSPECIFI 12/17/2017 MARQUES PAULSON MD Ot N40.1 BENIGN PROSTATIC HYPERPLASIA WITH LOWER 12/17/2017 MARQUES PAULSON MD Ot R33.8 OTHER RETENTION OF URINE 12/17/2017 MARQUES PAULSON MD Ot Z01.818 ENCOUNTER FOR OTHER PREPROCEDURAL EXAMIN 12/19/2017 MARQUES PAULSON MD Ot C61 MALIGNANT NEOPLASM OF PROSTATE 12/19/2017 MARQUES PAULSON MD, Ot C67.9 MALIGNANT NEOPLASM OF BLADDER, UNSPECIFI 12/19/2017 MARQUES PAULSON MD Ot E11.9 TYPE 2 DIABETES MELLITUS WITHOUT COMPLIC 12/19/2017 MARQUES PAULSON MD, Ot E78.00 PURE HYPERCHOLESTEROLEMIA, UNSPECIFIED 12/19/2017 MARQUES PAULSON MD Ot F03.90 UNSPECIFIED DEMENTIA WITHOUT BEHAVIORAL 12/19/2017 MARQUES PAULSON MD Ot I10 ESSENTIAL (PRIMARY) HYPERTENSION 12/19/2017 MARQUES PAULSON MD Ot I25.10 ATHSCL HEART DISEASE OF [place] CORONARY 12/19/2017 MARQUES PAULSON MD Ot N31.9 NEUROMUSCULAR DYSFUNCTION OF BLADDER, UN 12/19/2017 MARQUES PAULSON MD, Ot N40.1 BENIGN PROSTATIC HYPERPLASIA WITH LOWER 12/19/2017 MARQUES PAULSON MD Ot R33.8 OTHER RETENTION OF URINE 12/19/2017 MARQUES PAULSON MD, Ot Z79.899 OTHER HALFWAY (CURRENT) DRUG THERAPY 12/19/2017 MARQUES PAULSON MD Ot Z95.1 PRESENCE OF AORTOCORONARY BYPASS GRAFT 12/19/2017 MARQUES PAULSON MD Ot Z95.5 PRESENCE OF CORONARY ANGIOPLASTY IMPLANT 12/19/2017 MARQUES PAULSON MD Ot C61 MALIGNANT NEOPLASM OF PROSTATE 12/19/2017 MARQUES PAULSON MD, Ot C67.9 MALIGNANT NEOPLASM OF BLADDER, UNSPECIFI 12/19/2017 MARQUES PAULSON MD Ot E11.9 TYPE 2 DIABETES MELLITUS WITHOUT COMPLIC 12/19/2017 MARQUES PAULSON MD Ot E78.00 PURE HYPERCHOLESTEROLEMIA, UNSPECIFIED 12/19/2017 MARQUES PAULSON MD Ot F03.90 UNSPECIFIED DEMENTIA WITHOUT BEHAVIORAL 12/19/2017 MARQUES PAULSON MD Ot I10 ESSENTIAL (PRIMARY) HYPERTENSION 12/19/2017 MARQUES PAULSON MD Ot I25.10 ATHSCL HEART DISEASE OF [place] CORONARY 12/19/2017 MARQUES PAULSON MD Ot N31.9 NEUROMUSCULAR DYSFUNCTION OF BLADDER, UN 12/19/2017 MARQUES PAULSON MD Ot N40.1 BENIGN PROSTATIC HYPERPLASIA WITH LOWER 12/19/2017 MARQUES PAULSON MD Ot R33.8 OTHER RETENTION OF URINE 12/19/2017 MARQUES PAULSON MD Ot 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 12/19/2017 MARQUES PAULSON MD Ot Z95.1 PRESENCE OF AORTOCORONARY BYPASS GRAFT 12/19/2017 MARQUES PAULSON MD Ot Z95.5 PRESENCE OF CORONARY ANGIOPLASTY IMPLANT 12/21/2017 MARQUES PAULSON MD Ot C61 MALIGNANT NEOPLASM OF PROSTATE 12/21/2017 MARQUES PAULSON MD Ot C67.9 MALIGNANT NEOPLASM OF BLADDER, UNSPECIFI 12/21/2017 MARQUES PAULSON MD Ot E11.9 TYPE 2 DIABETES MELLITUS WITHOUT COMPLIC 12/21/2017 MARQUES PAULSON MD Ot E78.00 PURE HYPERCHOLESTEROLEMIA, UNSPECIFIED 12/21/2017 MARQUES PAULSON MD Ot F03.90 UNSPECIFIED DEMENTIA WITHOUT BEHAVIORAL 12/21/2017 MARQUES PAULSON MD Ot I10 ESSENTIAL (PRIMARY) HYPERTENSION 12/21/2017 MARQUES PAULSON MD Ot I25.10 ATHSCL HEART DISEASE OF [place] CORONARY 12/21/2017 MARQUES PAULSON MD, Ot N31.9 NEUROMUSCULAR DYSFUNCTION OF BLADDER, UN 12/21/2017 MARQUES PAULSON MD Ot N40.1 BENIGN PROSTATIC HYPERPLASIA WITH LOWER 12/21/2017 MARQUES PAULSON MD Ot R33.8 OTHER RETENTION OF URINE 12/21/2017 MARQUES PAULSON MD Ot 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 12/21/2017 MARQUES PAULSON MD Ot Z95.1 PRESENCE OF AORTOCORONARY BYPASS GRAFT 12/21/2017 MARQUES PAULSON MD, Ot Z95.5 PRESENCE OF CORONARY ANGIOPLASTY IMPLANT 01/10/2018 MARQUES PAULSON MD, Ot C61 MALIGNANT NEOPLASM OF PROSTATE 01/10/2018 MARQUES PAULSON MD, Ot C67.9 MALIGNANT NEOPLASM OF [place], UNSPECIFI 01/10/2018 MARQUES PAULSON MD Ot E11.9 TYPE 2 DIABETES MELLITUS WITHOUT COMPLIC 01/10/2018 MARQUES PAULSON MD, Ot E78.00 PURE HYPERCHOLESTEROLEMIA, UNSPECIFIED 01/10/2018 MARQUES PAULSON MD, Ot F03.90 UNSPECIFIED DEMENTIA WITHOUT BEHAVIORAL 01/10/2018 MARQUES PAULSON MD, Ot I10 ESSENTIAL (PRIMARY) HYPERTENSION 01/10/2018 MARQUES PAULSON MD, Ot I25.10 ATHSCL HEART DISEASE OF [place] CORONARY 01/10/2018 MARQUES PAULSON MD, Ot N31.9 NEUROMUSCULAR DYSFUNCTION OF [place], UN 01/10/2018 MARQUES PAULSON MD, Ot N40.1 BENIGN PROSTATIC HYPERPLASIA WITH LOWER 01/10/2018 MARQUES PAULSON MD, Ot R33.8 OTHER RETENTION OF URINE 01/10/2018 MARQUES PAULSON MD, Ot 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 01/10/2018 MARQUES PAULSON MD, Ot Z95.1 PRESENCE OF AORTOCORONARY BYPASS GRAFT 01/10/2018 MARQUES PAULSON MD, Ot 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 PRESENCE OF CORONARY ANGIOPLASTY IMPLANT Procedures Code Description Performed By Performed On [id number] INSPECTION OF [place]AD[place], ENDO 11/20/2017 [id number] EXCISION OF [place], ENDO , DIAGN 11/21/2017 [...] culture - 11/16/17 16:10 Bacterial blood culture [facility] Blood lactic acid measurement (moles/volume) - 11/16/17 16:16 Blood lactic acid measurement (moles/volume) 1.16 mmol/L 0.50-2.00 Bacterial blood culture - 11/16/17 16:18 Bacterial blood culture NG [facility] Complete blood count (CBC) with automated white [...] resistant Staphylococcus aureus (MRSA) screening culture NEG [facility] Blood type T Indirect antibody screen panel - 11/21/17 05:21 ABO+Rh group ON NRG Transfusion band number [id number] Blood group antibody screen NEGATIVE NRG [...] 5-8.5 Urine-Protein 2+ Negative Urine-RBC 20-40/HPF Urine-Specific [place] 1.025 1.000-1.030 Urine-WBC 20-40/HPF Urobilinogen 0.2 0.2-1.0 Urine Culture - 11/29/17 01:45 PRELIM CULTURE RESULTS No Growth 24 hours FINAL CULTURE RESULTS No Growth 48 hours MEDIA PLATED Setup at 01:48 on 11/29/2017 [employer] Hemoglobin A1C - 11/29/17 04:47 % A1C 6.10 % 5.40-6.60 AvGlu 140 mg/dL 70-110 Methicillin resistant Staphylococcus aureus (MRSA) screening culture - 06:30 Methicillin resistant Staphylococcus aureus (MRSA) screening culture NEG NRG Whole blood basic metabolic panel - 12/12/17 06:36 Serum or plasma sodium measurement (moles/volume) 141 mmol/L 135-145 Serum or plasma potassium measurement (moles/volume) 4.4 mmol/L 3.6-5.0 Serum or plasma chloride measurement (moles/volume) 109 mmol/L 98-107 Carbon dioxide 24 mmol/L 21-32 Serum or plasma anion gap determination (moles/volume) 8 mmol/L 5-14 Serum or plasma urea nitrogen measurement (mass/volume) 8 mg/dL 7-18 Serum or plasma creatinine measurement (mass/volume) 0.84 mg/dL 0.60-1.30 Serum or plasma urea nitrogen/creatinine mass ratio 10 NRG Serum or plasma creatinine measurement with calculation of estimated glomerular filtration rate > NRG Serum or plasma glucose measurement (mass/volume) 119 mg/dL 70-105 Serum or plasma calcium measurement (mass/volume) 8.7 mg/dL 8.5-10.1 Complete blood count (CBC) with automated white blood cell (WBC) differential - 12/12/17 06:36 Blood leukocytes automated count (number/volume) 6.6 10*3/uL 4.3-11.0 Blood erythrocytes automated count (number/volume) 3.33 10*6/uL 4.35-5.85 Venous blood hemoglobin measurement (mass/volume) 9.9 g/dL 13.3-17.7 Blood hematocrit (volume fraction) 31 % 40-54 Automated erythrocyte mean corpuscular volume 93 [foz_us] 80-99 Automated erythrocyte mean corpuscular hemoglobin (mass per erythrocyte) 30 pg 25-34 Automated erythrocyte mean corpuscular hemoglobin concentration measurement ( mass/volume) 32 g/dL 32-36 Automated erythrocyte distribution width ratio 13.8 % 10.0-14.5 Automated blood platelet count (count/volume) 247 10*3/uL 130-400 Automated blood platelet mean volume measurement 8.7 [foz_us] 7.4-10.4 Automated blood neutrophils/100 leukocytes 66 % 42-75 Automated blood lymphocytes/100 leukocytes 19 % 12-44 Blood monocytes/100 leukocytes 11 % 0-12 Automated blood eosinophils/100 leukocytes 4 % 0-10 Automated blood basophils/100 leukocytes 1 % 0-10 Blood neutrophils automated count (number/volume) 4.4 10*3 1.8-7.8 Blood lymphocytes automated count (number/volume) 1.2 10*3 1.0-4.0 Blood monocytes automated count (number/volume) 0.7 10*3 0.0-1.0 Automated eosinophil count 0.3 10*3/uL 0.0-0.3 Automated blood basophil count (count/volume) 0.1 10*3/uL 0.0-0.1 Blood type T Indirect antibody screen panel - 12/12/17 06:36 ABO+Rh group ON NRG Transfusion band number [id number] NRG Blood group antibody screen NEGATIVE NRG Encounters ACCT No. Visit Date/Time Discharge Status Pt. Type Provider Facility Loc./Unit Complaint [id number] 12/12/2017 06:05:00 12/14/2017 15:45:00 DIS Outpatient MARQUES PAULSON MD [facility] BLADDER CANCER,BPH, RETENTION [id number] 12/11/2017 10:03:00 12/11/2017 23:59:59 CLS Outpatient MARQUES APULSON MD [facility] PREOP BLADDER CANCER, BPH, RETENTION [id number] 11/16/2017 15:39:00 11/28/2017 16:06:00 DIS Inpatient KATIE WHARTON, CONOR Mancia [facility] 4TH FAILED OUTPATIENT THERAPY /RECURRENT UTI [id number] 11/16/2017 10:37:00 11/16/2017 23:59:59 CLS Outpatient JOSEPH WHARTON, DAVID Foreman [facility] RECURRENT UTI [id number] 11/08/2017 10:41:00 11/08/2017 13:19:00 DIS Emergency AMRIT SHARP APRN [facility] ER AMS [id number] 11/06/2017 07:51:00 11/06/2017 14:10:00 DIS Outpatient SRAVAN BRAVO DO [facility] LEFT INGUINAL HERNIA [id number] 11/02/2017 06:05:00 11/02/2017 16:24:00 DIS Outpatient LAWRENCE NEELYSRAVAN [facility] PREOP LEFT INGUINAL HERNIA [id number] 08/24/2017 10:14:00 08/24/2017 23:59:59 CLS Preadmit DAVID SALINAS MD [facility] RAD MEMORY LOSS,WEIGHT LOSS [id number] 04/28/2017 08:43:00 04/28/2017 23:59:59 CLS Outpatient DAVID SALINAS MD [facility] ENDO ANEMIA; POSSIBLE UPPER GI BLEED [id number] 04/27/2017 13:04:00 04/27/2017 23:59:59 CLS Outpatient DAVID SALINAS MD [facility] PREOP ANEMIA; POSSIBLE UPPER GI BLEED [id number] 09/18/2013 09:13:00 09/18/2013 23:59:59 CLS Outpatient DAVID SALINAS MD [facility] LAB ASCAD WITH [id number] 11/29/2017 01:46:00 Document Registration [id number] 10/25/2017 08:00:00 10/25/2017 23:59:59 CLS Outpatient David Salinas [facility] [id number] 11/29/2017 01:46:00 12/05/2017 09:30:00 DIS Inpatient Tien Ricci [facility] [id number] 11/29/2017 01:45:47 Document Registration
--- NOTE | 2018-04-07 20:03 | ED Fall/Injury ---
General Chief Complaint: Trauma-Non Activation Stated Complaint: FALL Source: patient Exam Limitations: no limitations History of Present Illness Date Seen by Provider: Apr 07, 2018 Time Seen by Provider: 19:45 Initial Comments Here from senior living with report of fall. Patient has advanced dementia and does not remember incident. Apparently had complained of some hip pain initially but was able to walk afterwards. No other injuries noted or reported. No report hitting the head or injuries to the head. Patient has no complaints currently but is a poor historian. Recently being treated for urinary tract infection and is supposedly currently on medications for that. EMS initiated IV and started 1 L normal saline bolus that is continuing. Blood pressures in the 90s systolic with map greater than 65. Occurred: just prior to arrival (approximately 30 minutes ago) Severity: mild Injuries/Pain Location: pelvis Context: unknown Loss of Consciousness: no loss of consciousness Associated Symptoms (Fall): No Headache, No Neck Pain, No Shortness of Air Allergies and Home Medications Allergies Coded Allergies: No Known Drug Allergies (Unverified , 02/14/11) Home Medications Carvedilol 12.5 Mg Tablet, 12.5 MG PO BID, (Reported) Ciprofloxacin HCl 500 Mg Tablet, 500 MG PO BID Prescribed by: CONOR WILSON on 12/14/17 1402 Finasteride 5 Mg Tablet, 5 MG PO DAILY, (Reported) Lactulose 20 Gm/30 Ml Solution, 20 GM PO BID, (Reported) Lisinopril 5 Mg Tablet, 5 MG PO DAILY, (Reported) Mag Hydrox/Al Hydrox/Simeth 355 Ml Oral.susp, 30 ML PO Q4H PRN for INDIGESTION, (Reported) Menthol/Lanolin/Calamine/Znox 71 Gm Oint, TP BID, (Reported) Mirtazapine 15 Mg Tablet, 7.5 MG PO HS, (Reported) TAKES 1/2 (15MG) TABLET Risperidone 0.25 Mg Tablet, 0.25 MG PO DAILY, (Reported) Risperidone 0.5 Mg Tablet, 0.5 MG PO 1800, (Reported) Simvastatin 40 Mg Tablet, 40 MG PO HS, (Reported) Tamsulosin HCl 0.4 Mg Cap, 0.4 MG PO HS, (Reported) Patient Home Medication List Home Medication List Reviewed: Yes Review of Systems Review of Systems Constitutional: see HPI; No fever; weakness Musculoskeletal: see HPI, joint pain Skin: no symptoms reported Unable to complete review of systems due to her underlying dementia but patient reports no complaint. Past Uhvwzwk-Megbec-Plogwo Hx Past Med/Social Hx: Reviewed Nursing Past Med/Soc Hx Patient Social History Recreational Drug Use: No Smoking Status: Unknown if Ever Smoked Recent Hopitalizations: No Physical Abuse: No Sexual Abuse: No Immunizations Up To Date Date of Pneumonia Vaccine: Oct 15, 2015 Date of Influenza Vaccine: Apr 20, 2017 Seasonal Allergies Seasonal Allergies: No Past Medical History Surgeries: Yes (quad bypass, hernia repair) CABG, Coronary Stent, Prostatectomy, Transurethral Resection Respiratory: No Cardiac: Yes (STENT, quad bypass) Coronary Artery Disease, High Cholesterol, Hypertension Neurological: No Dementia Reproductive Disorders: No Genitourinary: No Gastrointestinal: No (inguinal hernia) Musculoskeletal: No Endocrine: No Diabetes, Non-Insulin dep HEENT: No Cancer: No Psychosocial: No Violent Behavior, Depression Integumentary: No Blood Disorders: No Family Medical History Reviewed Nursing Family Hx No Pertinent Family Hx Physical Exam Vital Signs Vital Signs - First Documented 04/07/18 04/07/18 19:32 19:57 Temp 98.6 Pulse 77 Resp 14 B/P (MAP) 93/75 (81) Pulse Ox 100 O2 Flow Rate 2.00 Capillary Refill : Height, Weight, BMI Height: 5'6.00" Weight: 120lbs. 7.0oz. [id number]; 19.4 BMI Method:Stated General Appearance: WD/WN, no apparent distress HEENT: PERRL/EOMI, TMs normal, pharynx normal Neck: non-tender, full range of motion, supple, normal inspection Cardiovascular: regular rate, rhythm, no murmur Respiratory: lungs clear, normal breath sounds Gastrointestinal: non tender, soft Back: normal inspection, no CVA tenderness, no vertebral tenderness Extremities: normal range of motion, non-tender, normal inspection, no pedal edema, no calf tenderness, pelvis stable Neurologic/Psychiatric: alert, normal mood/affect (typical orientation per the family.) Ke Coma Score Best Eye Response: (4) Open Spontaneously Best Verbal Response: (4) Confused Conversation Best Motor Response: (6) Obeys Commands Progress/Results/Core Measures Results/Orders Lab Results Laboratory Tests Test 04/07/18 20:15 04/07/18 20:47 Range/Units White Blood Count 9.0 4.3-11.0 10^3/uL Red Blood Count 3.82 L 4.35-5.85 10^6/uL Hemoglobin 10.5 L 13.3-17.7 G/DL Hematocrit 33 L 40-54 % Mean Corpuscular Volume 85 80-99 FL Mean Corpuscular Hemoglobin 27 25-34 PG Mean Corpuscular Hemoglobin Concent 32 32-36 G/DL Red Cell Distribution Width 14.7 H 10.0-14.5 % Platelet Count 215 130-400 10^3/uL Mean Platelet Volume 9.1 7.4-10.4 FL Neutrophils (%) (Auto) 85 H 42-75 % Lymphocytes (%) (Auto) 7 L 12-44 % Monocytes (%) (Auto) 7 0-12 % Eosinophils (%) (Auto) 0 0-10 % Basophils (%) (Auto) 0 0-10 % Neutrophils # (Auto) 7.7 1.8-7.8 X 10^3 Lymphocytes # (Auto) 0.7 L 1.0-4.0 X 10^3 Monocytes # (Auto) 0.6 0.0-1.0 X 10^3 Eosinophils # (Auto) 0.0 0.0-0.3 10^3/uL Basophils # (Auto) 0.0 0.0-0.1 10^3/uL Neutrophils % (Manual) 93 % Lymphocytes % (Manual) 5 % Monocytes % (Manual) 1 % Eosinophils % (Manual) 0 % Basophils % (Manual) 0 % Band Neutrophils 1 % Poikilocytosis SLIGHT Sodium Level 136 135-145 MMOL/L Potassium Level 4.1 3.6-5.0 MMOL/L Chloride Level 107 98-107 MMOL/L Carbon Dioxide Level 21 21-32 MMOL/L Anion Gap 8 5-14 MMOL/L Blood Urea Nitrogen 25 H 7-18 MG/DL Creatinine 1.05 0.60-1.30 MG/DL Estimat Glomerular Filtration Rate > 60 BUN/Creatinine Ratio 24 Glucose Level 133 H 70-105 MG/DL Calcium Level 8.4 L 8.5-10.1 MG/DL Corrected Calcium 9.1 8.5-10.1 MG/DL Total Bilirubin 0.5 0.1-1.0 MG/DL Aspartate Amino Transf (AST/SGOT) 12 5-34 U/L Alanine Aminotransferase (ALT/SGPT) 8 0-55 U/L Alkaline Phosphatase 39 L 40-136 U/L C-Reactive Protein High Sensitivity 2.07 H 0.00-0.50 MG/DL Total Protein 5.5 L 6.4-8.2 GM/DL Albumin 3.1 L 3.2-4.5 GM/DL Urine Color YELLOW Urine Clarity VERY CLOUDY H Urine pH 6.5 5-9 Urine Specific [place] 1.015 L 1.016-1.022 Urine Protein 2+ H NEGATIVE Urine Glucose (UA) NEGATIVE NEGATIVE Urine Ketones NEGATIVE NEGATIVE Urine Nitrite NEGATIVE NEGATIVE Urine Bilirubin NEGATIVE NEGATIVE Urine Urobilinogen 1 NORMAL MG/DL Urine Leukocyte Esterase 3+ H NEGATIVE Urine RBC (Auto) 5+ H NEGATIVE Urine RBC 10-25 H /HPF Urine WBC TNTC H /HPF Urine Crystals NONE /LPF Urine Bacteria TRACE /HPF Urine Casts NONE /LPF Urine Mucus LARGE H /LPF Urine Culture Indicated YES My Orders Orders - DIANDRA MORTON MD Cbc With Automated Diff (04/07/18 19:47) Comprehensive Metabolic Panel (04/07/18 19:47) Hs C Reactive Protein (04/07/18 19:47) Ua Culture If Indicated (04/07/18 19:47) Chest 1 View, Ap/Pa Only (04/07/18 19:47) Pelvis/[place] Hips 5> Views (04/07/18 19:47) Manual Differential (04/07/18 20:15) Urine Culture (04/07/18 20:47) Ceftriaxone For Iv Use (Rocephin For I (04/07/18 22:00) Medications Given in ED Current Medications Medications Dose Ordered Sig/Doreen Route Start Time Stop Time Status Last Admin Dose Admin Ceftriaxone Sodium 1000 mg/ Sodium Chloride 60 ml @ 100 mls/hr ONCE ONCE IV 04/07/18 22:00 04/07/18 22:35 DC 04/07/18 22:02 100 MLS/HR Vital Signs/I&O 04/07/18 04/07/18 19:32 19:57 Temp 98.6 Pulse 77 Resp 14 14 B/P (MAP) 93/75 (81) 93/75 (81) Pulse Ox 100 100 O2 Flow Rate 2.00 Progress Progress Note : Progress Note Seen and evaluated. We will check chest x-ray and pelvic x-ray. We will check basic labs. We will recheck UA. Blood pressure remains above 90 systolic and 65. We will complete normal saline 1 L bolus initiated by EMS. Monitor patient. I did discuss with the family of the patient regarding CT of the head. We will forego that at this time as he has no obvious injury and he would not want surgery if he did have something going on. This will be readdressed if there are mental status changes otherwise. Family is in agreement. 2300: Patient did receive Rocephin 1 g IV for urinary tract infection. He is currently on Augmentin. We will change that to Omnicef outpatient for the next week pending culture. This will also cover the left lower lobe atelectasis/infiltrate. This was discussed with family and they agree. We did discuss inpatient versus outpatient treatment. Due to his dementia family would prefer to try outpatient therapy if tolerated. This seems reasonable. We did discuss that this may fail but it is worth a try. Family agrees and understands. Discharged home with return precautions. Family verbalize understanding instructions and agreement with plan Diagnostic Imaging Diagonstic Imaging: Xray Plain Films/CT/US/NM/MRI: chest Comments [facility]IA [facility]. TELEPHONE, [place] NAME: MYLES BEAN [facility] REC#: [id number] PT STATUS: REG ER : 1940 PHYSICIAN: DIANDRA MORTON MD ADMIT DATE: 04/07/18/ER Draft Date of Exam:04/07/18 CHEST 1 VIEW, AP/PA ONLY EXAMINATION: Chest radiograph, portable AP view. DATE: April 07, 2018 at 2055 hours. INDICATION: 77-year-old male, dementia. Found down. COMPARISON: November 16, 2017. FINDINGS: There are median sternotomy wires. Heart size and mediastinal contours are grossly unchanged given differences in technique. There is no identified pneumothorax. There is new nonspecific left greater than right bibasilar airspace consolidation. There are left upper quadrant surgical clips. IMPRESSION: 1. New nonspecific left greater than right bibasilar airspace consolidation which may relate to infiltrate, atelectasis, and/or small effusions. Dictated on workstation # [id number] Dict: 04/07/182052 Trans: 04/07/182058 [facility] [id number] Interpreted by: SOLEDAD PARIS MD Electronically signed by: Reviewed: Reviewed by Me Diagonstic Imaging: Xray Plain Films/CT/US/NM/MRI: pelvis Comments VIA [facility], [facility]. TELEPHONE, [place] NAME: MYLES BEAN [facility] REC#: [id number] PT STATUS: REG ER : 1940 PHYSICIAN: DIANDRA MORTON MD ADMIT DATE: 04/07/18/ER Draft Date of Exam:04/07/18 PELVIS/BELEM HIPS 5> VIEWS EXAMINATION: Pelvis, single view. Right hip, 2 additional views. Left hip, 2 additional views. COMPARISON: None. HISTORY: 77-year-old male, found down. FINDINGS: There are pelvic calcifications likely reflecting phleboliths. The pubic symphysis and sacroiliac joints are not abnormally widened. There is no hip dislocation. There are vascular calcifications. IMPRESSION: No identified acute bony abnormality of the pelvis or either hip. Dictated on workstation # [id number] Dict: 04/07/182053 Trans: 04/07/182058 [facility] [id number] Interpreted by: SOLEDAD PARIS MD Electronically signed by: Reviewed: Reviewed by Md Departure Impression Primary Impression: Urinary tract infection Qualified Codes: N30.00 - Acute cystitis without hematuria Additional Impression: Left lower lobe pneumonia Qualified Codes: J18.1 - Lobar pneumonia, unspecified organism Disposition: HOME, SELF-CARE Condition: Stable Departure-Patient Inst. Decision time for Depature: 23:20 Referrals: JANELL BUENO DO (PCP/Family) Primary Care Physician Patient Instructions: Community-Acquired Pneumonia, Adult (DC), Urinary Tract Infection, Adult (DC) Add. Discharge Instructions: All discharge instructions reviewed with patient and/or family. Voiced understanding. Take medications as directed. Stop Augmentin and start cefdinir as prescribed. Follow-up with your doctor this week for recheck and further evaluation. Return for worse pain, fever, vomiting, weakness, breathing problems or other concerns as needed. Scripts Cefdinir (Cefdinir) 300 Mg Capsule 300 MG PO BID, #14 CAP 0 Refills Prov: DIANDRA MORTON MD 04/07/18 Copy Copies To 1: JANEL ADAMS MD, TIMOTHY D MD Apr 07, 2018 20:03
[2018-04-07 20:27] LABS: BASOPHILS % (AUTO) 0 % (0-10); EOSINOPHILS % (AUTO) 0 % (0-10); HEMATOCRIT 33 % (40-54); HEMOGLOBIN 10.5 G/DL (13.3-17.7); LYMPHOCYTES # (AUTO) 0.7 X 10^3 (1.0-4.0); LYMPHOCYTES % (AUTO) 7 % (12-44); MEAN CORPUSCULAR HGB CONC 32 G/DL (32-36); MEAN CORPUSCULAR VOLUME 85 FL (80-99); MEAN PLATELET VOLUME 9.1 FL (7.4-10.4); MONOCYTES # (AUTO) 0.6 X 10^3 (0.0-1.0); MONOCYTES % (AUTO) 7 % (0-12); NEUTROPHILS # (AUTO) 7.7 X 10^3 (1.8-7.8); NEUTROPHILS % (AUTO) 85 % (42-75); PLATELET COUNT 215 10^3/uL (130-400); RED BLOOD COUNT 3.82 10^6/uL (4.35-5.85); RED CELL DISTRIBUTION WIDTH 14.7 % (10.0-14.5)
[2018-04-07 20:29] LABS: MEAN CORPUSCULAR HEMOGLOBIN 27 PG (25-34)
[2018-04-07 20:47] LABS: ALANINE AMINOTRANSFERASE 8 U/L (0-55); ALBUMIN 3.1 GM/DL (3.2-4.5); ALKALINE PHOSPHATASE 39 U/L (40-136); BILIRUBIN,TOTAL 0.5 MG/DL (0.1-1.0); BUN/CREATININE RATIO 24; CALCIUM 8.4 MG/DL (8.5-10.1); CARBON DIOXIDE 21 MMOL/L (21-32); CHLORIDE 107 MMOL/L (98-107); CREATININE SERUM 1.05 MG/DL (0.60-1.30); GFR ESTIMATED > 60; GLUCOSE 133 MG/DL (70-105); POTASSIUM 4.1 MMOL/L (3.6-5.0); SODIUM 136 MMOL/L (135-145); TOTAL PROTEIN 5.5 GM/DL (6.4-8.2)
[2018-04-07 20:51] LABS: BAND NEUTROPHILS 1 %; BASOPHILS % (MANUAL) 0 %; EOSINOPHILS % (MANUAL) 0 %; LYMPHOCYTES % (MANUAL) 5 %; MONOCYTES % (MANUAL) 1 %; NEUTROPHILS % (MANUAL) 93 %; POIKILOCYTOSIS SLIGHT
[2018-04-07 20:56] LABS: BILIRUBIN,URINE NEGATIVE (NEGATIVE); CLARITY,URINE VERY CLOUDY; COLOR,URINE YELLOW; GLUCOSE, URINE (UA) NEGATIVE (NEGATIVE); KETONES,URINE NEGATIVE (NEGATIVE); LEUKOCYTE ESTERASE ,URINE 3+ (NEGATIVE); NITRITE,URINE NEGATIVE (NEGATIVE); PH,URINE 6.5 (5-9); PROTEIN,URINE 2+ (NEGATIVE); UROBILINOGEN,URINE 1 MG/DL (NORMAL)
--- NOTE | 2018-04-07 21:00 | Diagnostic Imaging Report ---
EXAMINATION: Chest radiograph, portable AP view. DATE: April 07, 2018 at 2055 hours. INDICATION: 77-year-old male, dementia. Found down. COMPARISON: November 16, 2017. FINDINGS: There are median sternotomy wires. Heart size and mediastinal contours are grossly unchanged given differences in technique. There is no identified pneumothorax. There is new nonspecific left greater than right bibasilar airspace consolidation. There are left upper quadrant surgical clips. IMPRESSION: 1. New nonspecific left greater than right bibasilar airspace consolidation which may relate to infiltrate, atelectasis, and/or small effusions. Dictated by: Dictated on workstation # [id number]
--- NOTE | 2018-04-07 21:00 | Diagnostic Imaging Report ---
EXAMINATION: Pelvis, single view. Right hip, 2 additional views. Left hip, 2 additional views. COMPARISON: None. HISTORY: 77-year-old male, found down. FINDINGS: There are pelvic calcifications likely reflecting phleboliths. The pubic symphysis and sacroiliac joints are not abnormally widened. There is no hip dislocation. There are vascular calcifications. IMPRESSION: No identified acute bony abnormality of the pelvis or either hip. Dictated by: Dictated on workstation # [id number]
[2018-04-07 21:07] LABS: BACTERIA,URINE TRACE /HPF; WBC,URINE TNTC /HPF
[2018-04-07] MEDS ORDERED: cefTRIAXone FOR IV USE 1,000 MG in NS (IVPB) 50 ML IV ONE (22:00)
[2018-04-07] MEDS ORDERED: CEFD300C3 PO (23:22)
[2018-04-07 23:36] VITALS: BP 111/56
== END 2018-04-07 23:36 | disposition home or self-care (01) ==
LOC: EDUNIT# 19:31 → ER 19:32
DX: N39.0 Urinary tract infection, site not specified (principal); J18.1 Lobar pneumonia, unspecified organism; F03.90 Unspecified dementia, unspecified severity, without behavioral disturbance, psychotic disturbance, mood disturbance, and anxiety; I25.10 Atherosclerotic heart disease of native coronary artery without angina pectoris; E78.00 Pure hypercholesterolemia, unspecified; I10 Essential (primary) hypertension; E11.9 Type 2 diabetes mellitus without complications; F32.9 Major depressive disorder, single episode, unspecified; R40.2142 Coma scale, eyes open, spontaneous, at arrival to emergency department; R40.2242 Coma scale, best verbal response, confused conversation, at arrival to emergency department; R40.2362 Coma scale, best motor response, obeys commands, at arrival to emergency department; Z87.19 Personal history of other diseases of the digestive system; Z95.5 Presence of coronary angioplasty implant and graft; Z95.1 Presence of aortocoronary bypass graft; Z90.79 Acquired absence of other genital organ(s); W19.XXXA Unspecified fall, initial encounter
CPT/HCPCS: 36415; 71045; 73523; 80053; 81000; 85007; 85027; 86141; 87088; 96365

== ENCOUNTER → 2018-04-09 | Outpatient (CLI) | payer MEDICARE ==
[~2018-04-09] MED LIST changes: +CEFD300C3 PO
--- NOTE | 2018-04-09 15:58 | Diagnostic Imaging Report ---
Indication: Right shoulder pain AP, oblique and transscapular views of the right shoulder are obtained. FINDINGS: No acute fracture or dislocation is identified. No abnormal lytic or sclerotic focus is seen, and there is no radiopaque foreign body. IMPRESSION: No acute abnormality. Dictated by: Dictated on workstation # [id number]
--- NOTE | 2018-04-09 17:16 | Diagnostic Imaging Report ---
INDICATION: Neck pain. FINDINGS: AP, lateral, and odontoid views of the cervical spine are obtained. There is loss of cervical lordosis with mild right convexity cervical spinal curvature. Obliquity limits evaluation of the upper cervical vertebrae; however, prevertebral soft tissues are unremarkable. No discrete fracture is identified. There is atherosclerotic calcification within the carotid arteries, greater on the left. The odontoid appears to be intact. IMPRESSION: Limited study without definite acute abnormality identified. There is loss of cervical lordosis which may be secondary to muscle spasm or positioning. If further evaluation is warranted, consideration could be given to CT imaging for assessment. Dictated by: Dictated on workstation # [id number]
== END ==
LOC: RAD 15:25
PROVIDERS: ATTEND Nurse Practitioner Family
DX: M25.511 Pain in right shoulder (principal); M54.2 Cervicalgia
CPT/HCPCS: 72040; 73030